=== PATIENT | female | born 1965 | race Caucasian/White ===

== ENCOUNTER 2022-05-02 08:01 | Outpatient (REF) | payer BC, SELFPAY ==
--- NOTE | ~2022-05-02 | MM_ITS ---
EXAMINATION: BONE DENSITOMETRY CLINICAL INDICATION: Vertebral fracture. COMPARISON: This is the patient's baseline examination. TECHNIQUE: Using a [employer] Shkola DXA System (software version: 13.1) manufactured by [email or web address], dual-energy x-ray absorptiometry was performed of the lumbar spine and left hip. The images are of good technical quality. Summary results are attached. FINDINGS: AP SPINE L1-L4: BMD 1.185 g/cm2, Z-score 1.1, T-score 0.0, normal. LEFT FEMUR, NECK: BMD 0.897 g/cm2, Z-score 0.2, T-score -1.0, normal. LEFT FEMUR, TOTAL: BMD 1.009 g/cm2, Z-score 0.9, T-score 0.0, normal. IDENTIFIED RISK FACTORS: Early menopause, secondary osteoporosis, tobacco use (current smoker), glucocorticoids (chronic). HISTORY OF FRACTURE: None listed. MEDICATIONS: None listed. MM/XR DEXA axial skeleton IMPRESSION: 1. DIAGNOSIS: Normal bone density based on the lowest T-score value of -1.0 in the femoral neck applying World Health Organization criteria. 2. 10-YEAR FRACTURE RISK PREDICTION, FRAX: According to the guidelines, FRAX calculation should only be performed on patients in the osteopenia bone density category. Therefore, FRAX was not performed on this patient. 3. Treatment Recommendations: NOF guidelines recommend consideration for treatment in postmenopausal women and men age 50 and older presenting with the following: -A hip or vertebral (clinical or morphometric) fracture. -T-score less than or equal to -2.5 at the femoral neck or spine after appropriate evaluation to exclude secondary causes. -Low bone mass at the hip or spine and a 10-year fracture probability by FRAX of greater than or equal to 3% for hip fracture or greater than or equal to 20% for major osteoporotic fracture based on the [place] adapted WHO algorithm. 4. Other Recommendations: All treatment decisions require clinical judgment and consideration of individual patient factors, including patient preferences, comorbidities, previous drug use, risk factors not captured in the FRAX model (e.g. frailty, falls, vitamin D deficiency, increased bone turnover, interval significant decline in bone density) and possible under or overestimation of fracture risk by FRAX. FUTURE SCAN RECOMMENDATION: People with diagnosed cases of osteoporosis or at high risk for fracture should have regular bone mineral density tests. For patients eligible for Medicare, routine testing is allowed once every 2 years. The testing frequency can be increased to one year for patients who have rapidly progressing disease, those who are receiving or discontinuing medical therapy to restore bone mass, or have additional risk factors.
--- NOTE | ~2022-05-02 | MM_ITS ---
EXAMINATION: MM SCREENING DIGITAL BREAST TOMOSYNTHESIS, BILATERAL CLINICAL INFORMATION: Screening. Asymptomatic. The lifetime risk of breast cancer based on the Tyrer-Cuzick Model is 4.0%. COMPARISON: Mammography: 03/27/2021 and 12/13/2019. TECHNIQUE: Digital breast tomosynthesis is performed in both the craniocaudal and mediolateral oblique views along with computer-aided detection (CAD). Synthesized 2-D images are generated from the tomosynthesis. FINDINGS: The breasts are heterogeneously dense, which may obscure small masses (ACR BI-RADS breast composition Category c). There is a stable parenchymal pattern of the left breast with no new abnormal dominant mass or suspicious grouping of microcalcifications. Within the superior aspect of the right breast approximately 5.5 cm from the nipple, there is a region of some asymmetric density with question a few calcifications for which spot compression view is recommended. No definite craniocaudal correlate is seen. MM/MM tomosynthesis screening BI IMPRESSION: Right breast density superiorly for further evaluation as described. ASSESSMENT: BI-RADS 0: Incomplete - Need Additional Imaging Evaluation. RECOMMENDATION: 1. Additional views of the right breast. 2. Targeted ultrasound if warranted after review of the additional views. 3. Radiology department staff will contact the patient for additional imaging. This patient's information was entered into a reminder system with a target due date for their next mammogram.
== END 2022-05-02 08:02 | disposition home or self-care (01) ==
LOC: HO.MAMMO 08:01
PROVIDERS: PCP Internal Medicine; Visit Provider Internal Medicine
DX: Z12.31 Encounter for screening mammogram for malignant neoplasm of breast (principal); Z13.820 Encounter for screening for osteoporosis; Z78.0 Asymptomatic menopausal state
CPT/HCPCS: 77063; 77067; 77080

== ENCOUNTER 2022-05-20 08:35 | Outpatient (REF) | payer BC, SELFPAY ==
--- NOTE | ~2022-05-20 | MM_ITS ---
EXAMINATION: MM DIAGNOSTIC DIGITAL BREAST TOMOSYNTHESIS, RIGHT US DIAGNOSTIC ULTRASOUND BREAST, RIGHT CLINICAL INFORMATION: Recall from screening for asymmetric density and question of a few calcifications upper right breast. No known family history breast cancer. TC score 4%. COMPARISON: Mammography: 05/02/2022, outside mammography 03/27/2021, 12/13/2019 ([facility], [place]). TECHNIQUE: Digital breast tomosynthesis is performed. 2D images are generated from the tomosynthesis. The following views are obtained: Magnification spot MLO, magnification ML, 3-D spot ML, 3-D spot exaggerated CC. Ultrasound right breast is targeted to the upper and outer quadrants. Grayscale imaging and color Doppler are performed without and with harmonics. FINDINGS: The breasts are heterogeneously dense, which may obscure small masses (ACR BI-RADS breast composition Category c). The magnification views show no abnormal calcifications. No grouped pleomorphic calcifications. The additional views show scattered parenchymal densities without definite three-dimensional focal asymmetric density. No architectural abnormality. Ultrasound demonstrates no cystic or solid mass or architectural abnormality. No focal duct ectasia. Results are discussed with the patient at time of visit. There is no persistent asymmetric density and no abnormal calcifications. As a precaution, short interval six-month follow-up right mammography will be requested to exclude remote possibility of a developing density. MM/MM tomosynthesis diagnostic RT IMPRESSION: -No abnormal calcifications. -No persistent three-dimensional focal asymmetric density. -Unremarkable targeted right breast ultrasound. ASSESSMENT: BI-RADS 3: Probably Benign RECOMMENDATION: Diagnostic mammography in 6 months. This patient's information was entered into a reminder system with a target due date for their next mammogram.
== END 2022-05-20 08:36 | disposition home or self-care (01) ==
LOC: HO.MAMMO 08:35
PROVIDERS: PCP Internal Medicine; Visit Provider Internal Medicine
DX: R92.2 Inconclusive mammogram (principal)
CPT/HCPCS: 76642; 77061; 77065

== ENCOUNTER 2022-07-25 13:12 | Outpatient (REF) | payer BC, SELFPAY ==
--- NOTE | ~2022-07-25 | CT_ITS ---
EXAMINATION: CT ABDOMEN AND PELVIS WITHOUT CONTRAST CLINICAL INFORMATION: Left lower quadrant pain COMPARISON: None TECHNIQUE: Multidetector volumetric imaging was performed from the superior aspect of the liver through the pubic symphysis. Sagittal and coronal reformatted images were obtained on the technologist's workstation. This CT examination was performed using dose optimization techniques as appropriate, variously including the following: *Automated exposure control *Adjustment of mA and/or kV according to patient size (this includes techniques or standardized protocols for targeted exams where dose is matched to indication/reason for exam; i.e. extremities or head) *Use of iterative reconstruction technique DLP: 370 mGy-cm FINDINGS: LUNG BASES: Small nodularity at the left lung base. 3 mm nodule on image 5. LIVER, GALLBLADDER, AND BILIARY TREE: The liver is normal in size, shape, and attenuation. No focal hepatic lesion or biliary ductal dilatation is present. The gallbladder is unremarkable with no evidence of radiopaque gallstones, gallbladder wall thickening, or obvious pericholecystic inflammatory changes. PANCREAS: Unremarkable. SPLEEN: Unremarkable. ADRENAL GLANDS: Unremarkable. KIDNEYS AND URETERS: The kidneys are normal in size, shape, and attenuation. No hydronephrosis, hydroureter, or calculi seen. No perinephric stranding. BLADDER: Unremarkable. GASTROINTESTINAL TRACT: Soft tissue stranding adjacent to the mid sigmoid in the deep left pelvis. Findings would be most consistent with diverticulitis as there are diverticular in the region. No drainable collection. Otherwise the bowel pattern is felt to be nonobstructing. ABDOMINAL WALL: No significant hernia is appreciated. LYMPH NODES: There is no bulky adenopathy here. Some mildly prominent but nonpathologically enlarged nodes are noted. For example on coronal image 66 an actual axial image 27 there is a prominent node but the short axis is only measuring 7 mm. VASCULAR: Unremarkable. PELVIC VISCERA: Other than change described no suspicious finding. OSSEOUS STRUCTURES: Unremarkable. CT/CT abdomen pelvis wo IV con IMPRESSION: Findings as described above. Soft tissue stranding around diverticula disease in the mid sigmoid at the level the deep pelvis on the left Findings would be most consistent with diverticulitis. Attention to follow-up. Otherwise as described some prominent nodes here in the abdomen pelvis. No pathologic enlargement. Attention to follow-up. 2 small nodules in left lower lung zone. If there are risk factors for lung malignancy consider full CT of the chest. This may be done on an outpatient basis.
== END 2022-07-25 13:13 | disposition home or self-care (01) ==
LOC: HO.CT 13:12
PROVIDERS: PCP Internal Medicine; Visit Provider Internal Medicine
DX: R10.32 Left lower quadrant pain (principal)
CPT/HCPCS: 74176

== ENCOUNTER 2022-08-13 10:00 | Outpatient (REF) | payer BC, SELFPAY ==
[2022-08-13 10:35] LABS: MANUAL DIFF FLAG NO
[2022-08-13 10:42] LABS: Basophils Percent Auto 0.5 % (0-2); Eosinophils Percent Auto 0.4 % (0-4); Hemoglobin 13.5 g/dl (12.0-16.0); Imm Gran Abs Auto 0.03 X10*3/uL (0.00-0.03); Imm Gran Pct Auto 0.4 % (0.0-0.4); Lymphocytes Absolute Auto 1.9 X10*3/uL (1.2-4.9); Lymphocytes Percent Auto 24.5 % (20-40); Mean Corpuscular HGB Conc 32.9 g/dl (31.0-35.0); Mean Corpuscular Hemoglobin 30.8 pg (27.0-33.0); Mean Corpuscular Volume 93.6 fL (80.0-98.0); Mean Platelet Volume 8.7 fL (9.4-12.3); Monocytes Absolute Auto 0.7 X10*3/uL (0.1-1.2); Monocytes Percent Auto 9.2 % (2-11); Platelet Count 280 X10*3/uL (160-400); Red Blood Count 4.38 X10*6/uL (4.20-5.50); Red Cell Distribution Width 12.9 % (11.0-16.0); White Blood Count 7.7 X10*3/uL (4.8-10.8)
[2022-08-13 11:45] LABS: Vitamin B12 426 pg/mL (200-900)
== END 2022-08-13 10:01 | disposition home or self-care (01) ==
LOC: HO.10HDL 10:00
PROVIDERS: Visit Provider Internal Medicine
DX: K57.90 Diverticulosis of intestine, part unspecified, without perforation or abscess without bleeding (principal)
CPT/HCPCS: 36415; 82607; 85025

== ENCOUNTER 2022-10-08 07:23 | Outpatient (REF) | payer BC, SELFPAY ==
--- NOTE | ~2022-10-08 | CT_ITS ---
EXAMINATION: CT CHEST WITHOUT CONTRAST CLINICAL INFORMATION: Nicotine dependence. COMPARISON: Lung windows from abdominal and pelvic CT July 2022 TECHNIQUE: Multidetector volumetric CT imaging of the chest was done. Axial MIP volume rendering provided. Sagittal and coronal reformatted images were obtained. This CT examination was performed using dose optimization techniques as appropriate, variously including the following: *Automated exposure control *Adjustment of mA and/or kV according to patient size (this includes techniques or standardized protocols for targeted exams where dose is matched to indication/reason for exam; i.e. extremities or head) *Use of iterative reconstruction technique DLP: 134 mGy-cm FINDINGS: LUNGS: Biapical pleural parenchymal scarring. 4 mm right upper lobe nodule axial image 103 series 5. 4 mm peripheral or subpleural left upper lobe nodule adjacent to the fissure axial image 135 series 5. 3 mm right upper lobe nodule axial image 208 series 5. 4 mm right upper lobe nodule axial image 268 series 5. 2 mm right upper lobe nodule axial image 284 series 5. 2 mm right middle lobe nodule axial image 312 series 5. 3 mm lingular nodule axial image 336 series 5. 3 mm right middle lobe nodule axial image 360 series 5. 3 mm left lower lobe nodule axial image 384 series 5. 2 mm left lower lobe nodule axial image 428 series 5. 2 mm right lower lobe nodule axial image 436 series 5. 3 mm left lower lobe nodule axial image 440 series 5. MEDIASTINUM: The mediastinum is normal. CORONARY ARTERY CALCIFICATION: None visualized on this study. PLEURA: There is no pleural effusion. No pleural mass or thickening. AXILLA: No lymphadenopathy. UPPER ABDOMEN: Unremarkable. OSSEOUS STRUCTURES: Degenerative changes of the spine. CT/CT chest wo IV con IMPRESSION: Biapical pleural and parenchymal scarring. Small pulmonary nodules, largest measuring 4 mm. According to the UPDATED 2017 Fleischner Society recommendations, the advised follow-up imaging for less than 6 mm solid nodule: Low risk, no chest CT follow-up and high risk, optional chest CT follow-up in one year. Fleischner guidelines were followed.
== END 2022-10-08 07:24 | disposition home or self-care (01) ==
LOC: HO.CT 07:23
PROVIDERS: PCP Internal Medicine; Visit Provider Internal Medicine
DX: Z12.2 Encounter for screening for malignant neoplasm of respiratory organs (principal); F17.210 Nicotine dependence, cigarettes, uncomplicated; R91.8 Other nonspecific abnormal finding of lung field
CPT/HCPCS: 71250

== ENCOUNTER 2022-11-18 14:45 | Outpatient (REF) | payer BC, SELFPAY ==
--- NOTE | ~2022-11-18 | MM_ITS ---
EXAMINATION: MM DIAGNOSTIC DIGITAL BREAST TOMOSYNTHESIS, RIGHT CLINICAL INFORMATION: Short interval follow-up probable benign parenchymal asymmetry upper right breast on MLO view. The lifetime risk of breast cancer based on the Tyrer-Cuzick Model is 4%. COMPARISON: Mammography: 05/20/2022, 05/02/2022 (BI-RADS 0); right breast ultrasound 05/20/2022; outside mammography 03/27/2021, 12/13/2019 ([facility], [place]). TECHNIQUE: Digital breast tomosynthesis is performed in both the craniocaudal and mediolateral oblique views along with computer-aided detection (CAD). Synthesized 2D images are generated from the tomosynthesis. FINDINGS: The breasts are heterogeneously dense, which may obscure small masses (ACR BI-RADS breast composition Category c). There is no significant change from prior exams. No developing density or architectural abnormality. Right breast will be reassessed again at time of annual bilateral mammography, due in 6 months. Results are provided to the patient at time of visit by the technologist. MM/MM tomosynthesis diagnostic RT IMPRESSION: There are no significant changes from prior study. ASSESSMENT: BI-RADS 3: Probably Benign RECOMMENDATION: Diagnostic mammography at time of annual bilateral mammography, due in 6 months. This patient's information was entered into a reminder system with a target due date for their next mammogram.
== END 2022-11-18 14:46 | disposition home or self-care (01) ==
LOC: HO.MAMMO 14:45
PROVIDERS: PCP Internal Medicine; Visit Provider Internal Medicine
DX: R92.2 Inconclusive mammogram (principal)
CPT/HCPCS: 77061; 77065

== ENCOUNTER 2023-01-03 06:59 | Outpatient (REF) | payer OTHER, SELFPAY ==
[2023-01-03 08:50] LABS: Cholesterol 172 mg/dL; HDL Cholesterol 65 mg/dL; LDL Cholesterol Calculated 96 mg/dl; Triglycerides 58 mg/dL
== END 2023-01-03 07:00 | disposition home or self-care (01) ==
LOC: HO.LAB 06:59
PROVIDERS: PCP Internal Medicine; Referring Provider Internal Medicine; Visit Provider Internal Medicine Cardiovascular Disease
DX: E78.5 Hyperlipidemia, unspecified (principal)
CPT/HCPCS: 36415; 80061

== ENCOUNTER 2023-01-13 14:07 | Outpatient (AMB) | payer OTHER, SELFPAY ==
--- NOTE | 2023-01-13 14:15 | AM.OFFWIN_ITS ---
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 Pt states she has felt exhausted for the past few days. 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 She has a small rash on her left forearm. Cannot recall if she had a tick bite. Physical Exam Vital Signs: Last Vital Signs Temp 97.4 F 01/13/23 14:16 Pulse 80 01/13/23 14:16 BP 114/68 01/13/23 14:16 Pulse Ox 98 01/13/23 14:16 Oxygen Delivery Method Room Air 01/13/23 14:16 BMI result Body Mass Index 26.6 Skin Other: Left forearm: 2 cm circular lesion with heaped margins. Overlying scales. Assessment & Plan Assessment & Plan (1) Rash: Code(s): R21 - Rash and other nonspecific skin eruption Plan: Most likely fungal etiology. Response to ketoconazole awaited. Lyme titer in 3 weeks per patient's request. Orders: Orders Lyme IgG/IgM w/reflex to WB 01/27/23 R21 - Rash and other nonspecific skin eruption Medications: New ketoconazole 2% 1 appl topical DAILY 30 grams 1RF Coding Level of Care Code Est Pt Level 3 (49204) Diagnoses Rash R21
[2023-01-13 14:16] VITALS: BP 114/68; PULSE 80; TEMP 36.3; O2SAT 98; BMI 26.6
== END 2023-01-13 15:22 | disposition home or self-care (01) ==
PROVIDERS: PCP Internal Medicine; Visit Provider Internal Medicine
DX: R21 Rash and other nonspecific skin eruption (principal)
CPT/HCPCS: 99213

== ENCOUNTER 2023-02-12 07:25 | Outpatient (REF) | payer OTHER, SELFPAY ==
[2023-02-12 07:45] LABS: MANUAL DIFF FLAG NO
[2023-02-12 08:02] LABS: Basophils Percent Auto 0.6 % (0-2); Eosinophils Absolute Auto 0.1 X10*3/uL (0.0-0.4); Eosinophils Percent Auto 0.7 % (0-4); Hematocrit 40.7 % (37.0-47.0); Hemoglobin 13.3 g/dl (12.0-16.0); Imm Gran Abs Auto 0.02 X10*3/uL (0.00-0.03); Imm Gran Pct Auto 0.3 % (0.0-0.4); Lymphocytes Absolute Auto 1.6 X10*3/uL (1.2-4.9); Lymphocytes Percent Auto 22.2 % (20-40); Mean Corpuscular HGB Conc 32.7 g/dl (31.0-35.0); Mean Corpuscular Hemoglobin 31.2 pg (27.0-33.0); Mean Corpuscular Volume 95.5 fL (80.0-98.0); Mean Platelet Volume 9.3 fL (9.4-12.3); Monocytes Absolute Auto 0.6 X10*3/uL (0.1-1.2); Monocytes Percent Auto 8.3 % (2-11); Neutrophils Absolute Auto 4.9 x10*3/uL (2.0-8.3); Neutrophils Percent Auto 67.9 % (45-73); Platelet Count 260 X10*3/uL (160-400); Red Blood Count 4.26 X10*6/uL (4.20-5.50); Red Cell Distribution Width 12.7 % (11.0-16.0); White Blood Count 7.2 X10*3/uL (4.8-10.8)
[2023-02-12 08:54] LABS: Alanine Aminotransferase 9 U/L (0-31); Alkaline Phosphatase 92 U/L (39-117); Anion Gap 10 (12-20); Aspartate Amino Transferase 20 U/L (5-31); Bilirubin Total 0.4 mg/dL (0.0-1.0); Blood Urea Nitrogen 19 mg/dL (9-16); C Reactive Protein 0.56 mg/dL (< or = 0.50); Calcium 9.5 mg/dL (8.4-10.2); Carbon Dioxide 28 mmol/L (22-29); Chloride 104 mmol/L (96-108); Estimated Glomerular Filt Rate > 60; Glucose Random 109 mg/dL (60-115); Potassium 4.1 mmol/L (3.3-5.1); Sodium 138 mmol/L (135-145); Total Protein 7.1 g/dL (6.5-8.0)
[2023-02-12 08:59] LABS: Erythrocyte Sedimentation Rate 29 MM/HR (0-20)
[2023-02-12 09:08] LABS: Free T4 (Free Thyroxine) 0.93 ng/dL (0.71-1.85); Thyroid Stimulating Hormone 0.59 uIU/mL (0.32-4.0)
[2023-02-12 09:15] LABS: Vitamin B12 426 pg/mL (200-900)
[2023-02-14 02:03] LABS: Lyme Abs Screen <0.90 index
== END 2023-02-12 07:26 | disposition home or self-care (01) ==
LOC: HO.LAB 07:25
PROVIDERS: PCP Internal Medicine; Visit Provider Internal Medicine
DX: R53.83 Other fatigue (principal); K58.9 Irritable bowel syndrome, unspecified; E78.00 Pure hypercholesterolemia, unspecified; K57.90 Diverticulosis of intestine, part unspecified, without perforation or abscess without bleeding
CPT/HCPCS: 36415; 80053; 82550; 82607; 84439; 84443; 85025; 85652; 86140; 86617; 86618

== ENCOUNTER → 2023-02-20 07:47 | Outpatient (REF) | payer OTHER, SELFPAY ==
--- NOTE | 2023-02-20 07:51 | CA_ITS ---
Acquisition Time: 2023-02-20 08:06:36 Total Exercise Time: 00:09:00 Test Indications: Dyspnea Medications: RAPATHA ESCITALOPRAM Protocol: RITA Max HR: 136 BPM 85% of Pred: 160 BPM Max BP: 128/050 mmHG Max Work Load: 10.1 METS PT EXERCISED ON STD RITA PROTOCOL FOR 9 MIN THRU STAGE 3. MAX HR 137-85%MAX. SOME ST DEP NOTED AT PEAK EXERCISE WITHOUT SXS. WILL REVIEW M WITH CARDIOLOGY. Referred By: Jefe Yuen Overread By: SYED YUEN MD
== END ==
LOC: HO.CARD 07:47
PROVIDERS: PCP Internal Medicine; Visit Provider Internal Medicine
DX: R53.82 Chronic fatigue, unspecified (principal)
CPT/HCPCS: 93017

== ENCOUNTER 2023-03-24 | Outpatient (REF) | payer OTHER, SELFPAY ==
[2023-03-27 21:13] LABS: HPV mRNA E6/E7 rflx Not Detected (Not Detected)
== END 2023-03-24 00:01 | disposition home or self-care (01) ==
LOC: HO.LNP
PROVIDERS: Visit Provider Obstetrics & Gynecology
DX: Z01.419 Encounter for gynecological examination (general) (routine) without abnormal findings (principal); Z11.51 Encounter for screening for human papillomavirus (HPV)
CPT/HCPCS: 87624; 88142

== ENCOUNTER 2023-04-13 07:46 | Emergency (ER) | payer OTHER, SELFPAY ==
--- NOTE | ~2023-04-13 | XR_ITS ---
EXAMINATION: XR CHEST CLINICAL INFORMATION: Chest pain COMPARISON: Chest CT 10/08/2022 TECHNIQUE: Frontal view of the chest was obtained. FINDINGS: Cardiac silhouette is normal in size. The lungs are well aerated. There is no lobar consolidation. No pleural effusion or pneumothorax. No gross osseous abnormality. XR/XR chest 1V IMPRESSION: No acute pulmonary pathology.
--- NOTE | 2023-04-13 07:48 | ECG_ITS ---
Test Reason : chest pain Blood Pressure : / mmHG Vent. Rate : 082 BPM Atrial Rate : 082 BPM P-R Int : 170 ms QRS Dur : 092 ms QT Int : 368 ms P-R-T Axes : -20 028 030 degrees QTc Int : 429 ms Normal sinus rhythm Nonspecific ST abnormality Abnormal ECG No previous ECGs available Referred By: Monica Burnett Electronically Signed By:SYED YUEN MD
[2023-04-13 07:51] VITALS: BP 136/82; PULSE 85; RESP 19; TEMP 36.6; O2SAT 95; BMI 26.2
--- NOTE | 2023-04-13 08:03 | ED_ITS ---
HPI - Chest Pain General Chief Complaint: Chest Pain Stated Complaint: Chest pain/Neck pain Time Seen by Provider: 04/13/23 07:49 Source: patient and old records reviewed Mode of arrival: ambulatory Limitations: no limitations History of Present Illness HPI narrative: 58 yo female smoker, HLD, states father has hx of CAD had exercise stress test with Dr. Obregon on 02/20 without symptoms other than dyspnea there were some ST depressions in inf leads but there was so much artifact it was hard to interpret. At this time she presents with 3 days of still chronic fatigue but also chest pressure radiating to back along with neck at rest and exertion feels tired and short of breath. has had lyme panel, B12 and thyroid done for her chronic fatigue. MD complaint: chest pain Onset (ago): day(s) (3) Timing of current episode: episodic Prior episodes: Yes Onset: during rest and during exertion Pain location: substernal Pain radiation: back and neck Severity: moderate Quality: other (pressure) Relieving factors: nothing Exacerbating factors: nothing Context: other Associated symptoms: dyspnea Treatment prior to arrival: none Related Data Home Medications Medication Instructions Recorded Confirmed escitalopram oxalate 20 mg tablet 20 mg PO DAILY 01/13/23 evolocumab 140 mg/mL subcutaneous mg subcut Q2W 01/13/23 pen injector (Roman Rendon) Previous Rx's Medication Instructions Recorded ketoconazole 2 % topical cream 1 appl topical DAILY #30 grams 01/13/23 Allergies Allergy/AdvReac Type Severity Reaction Status Date / Time midazolam [From Versed] AdvReac Intermediate Rash Verified 04/13/23 07:51 morphine AdvReac Intermediate Unknown Verified 04/13/23 07:51 Review of Systems 2 Review of Systems: Constitutional : No Weight loss, No Fever, No Chills ENT/Mouth : No sore throat, No Rhinorrhea Eyes: No Eye Pain, No Swelling Cardiovascular : pos Chest Pain, pos SOB, no Dyspnea on Exertion, No Orthopnea, No Edema, No Palpitations Respiratory : No Cough, No Sputum Gastrointestinal : no Nausea, No Vomiting, No Diarrhea, No abdominal Pain, No Hematochezia, No Melena Genitourinary : No Dysuria, No Urinary Frequency Musculoskeletal : No joint pain, No Myalgias, No Joint Swelling Skin : No Skin Lesions, No rash Neuro : No Weakness, No Numbness, No Dizziness, No Headache Psych : No Anxiety/Panic, No Depression All other systems reviewed and are negative [facility] Past Medical History Attestation statement: The following information was validated with the patient. Medical History Hyperlipidemia Social History Social History Patient Tobacco Use Status: Current everyday Tobacco user Smoked in Last 30 Days: Yes Use of substances other than those prescribed or required for medical reasons: No Advance Directives: No Advance Directives Information Provided: No Physical Exam 2 Vital Signs: Vital Signs: Last Vital Signs Temp 98.0 F 04/13/23 11:06 Pulse 68 04/13/23 11:06 Resp 15 04/13/23 11:06 BP 113/73 04/13/23 11:06 Pulse Ox 95 04/13/23 11:06 O2 Del Method Room Air 04/13/23 11:06 BMI result Body Mass Index 26.2 Appearance: Alert. Oriented X3. No acute distress. Eyes: Pupils equal, round and reactive to light. ENT: Pharynx normal. Neck: Normal inspection. Neck supple. CVS: Normal heart rate and rhythm. Pulses normal. Respiratory: No respiratory distress. Breath sounds normal. Abdomen: Soft and non-tender. Skin: Skin warm and dry. Normal skin color. Normal skin turgor. Extremities: No lower extremity edema. No calf ttp distal pulses intact. Neuro: Oriented X 3. No motor deficit. No sensory deficit. Medical Decision Making Medical Decision Making [facility] Narrative: 58 yo female smoker, HLD, states father has hx of CAD had exercise stress test with Dr. Obregon on 02/20 that showed possibly some ST depressions but there was sig artifact. At this time she now has chest pressure x 3 days - will obtain basic labs, troponin x 2, CXR, EKG - she has no signs of DVT, no risk factors for VTE - no hypoxia or tachycardia it is not pleuritic low susp for VTE. Her pulses are intact doubt dissection. Differential Diagnosis Differential Diagnoses: The differential diagnosis associated with the presentation includes atypical chest pain, viral syndrome Admission/Observation Consideration of admission/observation: Escalation of care including admission/observation considered nonischemic EKG, trop flat x 2, CXR negative, stress test can be repeated outpatient can follow up with cardiology tracing was terrible Lab Data [facility] Lab Attestation statement: I reviewed the patient's lab results. 04/13/23 08:00 04/13/23 08:00 Labs: Lab Results 04/13/23 04/13/23 Range/Units 08:00 11:12 WBC 6.6 (4.8-10.8) X10*3/uL RBC 4.40 (4.20-5.50) X10*6/uL Hgb 13.6 (12.0-16.0) g/dl Hct 40.7 (37.0-47.0) % MCV 92.5 (80.0-98.0) fL MCH 30.9 (27.0-33.0) pg MCHC 33.4 (31.0-35.0) g/dl RDW 12.5 (11.0-16.0) % Plt Count 269 (160-400) X10*3/uL MPV 8.8 L (9.4-12.3) fL Immature Gran % (Auto) 0.3 (0.0-0.4) % Neut % (Auto) 62.5 (45-73) % Lymph % (Auto) 27.3 (20-40) % [place] % (Auto) 7.9 (2-11) % Eos % (Auto) 1.5 (0-4) % Baso % (Auto) 0.5 (0-2) % Lymph # (Auto) 1.8 (1.2-4.9) X10*3/uL [place] # (Auto) 0.5 (0.1-1.2) X10*3/uL Eos # (Auto) 0.1 (0.0-0.4) X10*3/uL Baso # (Auto) 0.0 (0.0-0.2) X10*3/uL Abs Immat Gran (auto) 0.02 (0.00-0.03) X10*3/uL Absolute Neuts (auto) 4.1 (2.0-8.3) x10*3/uL Absolute Nucleated RBC 0.000 (0.0-0.012) X10*3/uL Nucleated RBC % (auto) 0.0 (0.0-0.2) /100WBC PT 11.7 (11.1-13.3) SEC INR 1.0 (0.9-1.1) Sodium 139 (135-145) mmol/L Potassium 3.9 (3.3-5.1) mmol/L Chloride 103 (96-108) mmol/L Carbon Dioxide 28 (22-29) mmol/L Anion Gap 12 (12-20) BUN 16 (9-16) mg/dL Creatinine 0.85 (0.5-1.4) mg/dL Estim Creat Clear Calc 59.8 Estimated GFR > 60 Random Glucose 120 H (60-115) mg/dL Calcium 9.6 (8.4-10.2) mg/dL Magnesium 2.1 (1.6-2.6) mg/dL Total Bilirubin 0.5 (0.0-1.0) mg/dL Direct Bilirubin 0.2 (0.0-0.5) mg/dL AST 27 (5-31) U/L ALT 12 (0-31) U/L Alkaline Phosphatase 93 (39-117) U/L Troponin I High Sens < 2.7 < 2.7 (<3.5-17.0) ng/L Total Protein 7.5 (6.5-8.0) g/dL Albumin 4.1 (3.5-5.0) g/dL Lipase 16 (8-78) U/L COVID-19 (ANA PAULA) Negative (Negative) COVID-19 Clin Com See Note Independent Interpretation I performed an independent interpretation of an: EKG and Plain X-Ray (normal ) Interpretation: Rate: 82 Rhythm: NSR [place]: normal Normal P waves. Normal MICHI. Normal QRS complex. ST T wave : normal no DUNIA qTC: normal prior studies: no acute ischemia The study has been interpreted contemporaneously by me. . Radiology Impression Discussion of test interpretation with radiology: I have reviewed the radiologist's reading. External Record Review External record reviewed: Inpatient record Discharge Plan Discharge Clinical Impression: Atypical chest pain, Chronic fatigue Patient Disposition: Home, Self-Care Instructions: Chest Pain (ED), Fatigue (ED) Additional Instructions: your COVID, chest xray EKG were normal today. you had two negative and undetectable high sensitivity troponins. at this time would recommend outpatient ECHO and evaluation by cardiology please call Dr. Aly office today for outpatient appointment. return for worsening pain, trouble breathing, fainting or any other concerns. Prescriptions: No Action escitalopram oxalate 20 mg tablet 20 mg PO DAILY Repatha SureClick 140 mg/mL pen injector subcut Q2W ketoconazole 2 % cream 1 appl topical DAILY Qty: 30 1RF Referrals: Robe Samaniego MD [Physician] - (call to schedule appointment ) Stand Alone Forms: Work/School Release
[2023-04-13 08:12] LABS: MANUAL DIFF FLAG NO
[2023-04-13 08:14] LABS: Basophils Percent Auto 0.5 % (0-2); Eosinophils Absolute Auto 0.1 X10*3/uL (0.0-0.4); Eosinophils Percent Auto 1.5 % (0-4); Hematocrit 40.7 % (37.0-47.0); Hemoglobin 13.6 g/dl (12.0-16.0); Imm Gran Abs Auto 0.02 X10*3/uL (0.00-0.03); Imm Gran Pct Auto 0.3 % (0.0-0.4); Lymphocytes Absolute Auto 1.8 X10*3/uL (1.2-4.9); Lymphocytes Percent Auto 27.3 % (20-40); Mean Corpuscular HGB Conc 33.4 g/dl (31.0-35.0); Mean Corpuscular Hemoglobin 30.9 pg (27.0-33.0); Mean Corpuscular Volume 92.5 fL (80.0-98.0); Mean Platelet Volume 8.8 fL (9.4-12.3); Monocytes Absolute Auto 0.5 X10*3/uL (0.1-1.2); Monocytes Percent Auto 7.9 % (2-11); Neutrophils Absolute Auto 4.1 x10*3/uL (2.0-8.3); Neutrophils Percent Auto 62.5 % (45-73); Platelet Count 269 X10*3/uL (160-400); Red Cell Distribution Width 12.5 % (11.0-16.0); White Blood Count 6.6 X10*3/uL (4.8-10.8)
[2023-04-13 08:23] LABS: Prothrombin Time 11.7 SEC (11.1-13.3)
[2023-04-13 08:30] LABS: COVID-19 Test Negative (Negative); IDNOW Serial# 9DB6401D
[2023-04-13 08:34] LABS: Alanine Aminotransferase 12 U/L (0-31); Albumin Level 4.1 g/dL (3.5-5.0); Alkaline Phosphatase 93 U/L (39-117); Anion Gap 12 (12-20); Aspartate Amino Transferase 27 U/L (5-31); Bilirubin Direct 0.2 mg/dL (0.0-0.5); Bilirubin Total 0.5 mg/dL (0.0-1.0); Blood Urea Nitrogen 16 mg/dL (9-16); Calcium 9.6 mg/dL (8.4-10.2); Carbon Dioxide 28 mmol/L (22-29); Chloride 103 mmol/L (96-108); Creatinine Clr Calc Pharmacy 59.8; Estimated Glomerular Filt Rate > 60; Glucose Random 120 mg/dL (60-115); Lipase 16 U/L (8-78); Magnesium 2.1 mg/dL (1.6-2.6); Potassium 3.9 mmol/L (3.3-5.1); Sodium 139 mmol/L (135-145); Total Protein 7.5 g/dL (6.5-8.0)
[2023-04-13 08:46] LABS: Troponin-I High Sensitivity < 2.7 ng/L (<3.5-17.0)
[2023-04-13 09:13] VITALS: BP 117/69; PULSE 68; RESP 17; O2SAT 96
[2023-04-13 11:06] VITALS: BP 113/73; PULSE 68; RESP 15; TEMP 36.7; O2SAT 95
[2023-04-13 11:39] LABS: Troponin-I High Sensitivity < 2.7 ng/L (<3.5-17.0)
== END 2023-04-13 12:06 | disposition home or self-care (01) ==
PROVIDERS: Emergency Provider Emergency Medicine; PCP Internal Medicine
DX: R07.89 Other chest pain (principal); R53.82 Chronic fatigue, unspecified; Z11.52 Encounter for screening for COVID-19; R06.02 Shortness of breath; E78.5 Hyperlipidemia, unspecified; F17.210 Nicotine dependence, cigarettes, uncomplicated; Z79.899 Other long term (current) drug therapy
CPT/HCPCS: 36415; 71045; 80048; 80076; 83690; 83735; 84484; 85025; 85610; 87635; 93005; 99283; 99285

== ENCOUNTER 2023-04-28 13:40 | Outpatient (AMB) | payer OTHER, SELFPAY ==
[2023-04-28 13:54] VITALS: BP 120/70
--- NOTE | 2023-04-28 13:54 | A.OFFVIS_ITS ---
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 Credit Assistant Required: No Accompanied by: Self / Same As Patient Allergies midazolam [From Versed] Adverse Reaction (Intermediate, Verified 04/28/23 13:58) Rash morphine Adverse Reaction (Intermediate, Verified 04/28/23 13:58) Unknown HPI HPI Comments History of Present Illness Details 58-year-old female presents for a visit after being in the emergency department for chest pain and referred for ST depressions in her recent stress test. She reports the pressure is constant along with significant fatigue but the severity of it changes. Does no worsen with exertion. She reports she has always had high cholesterol and had two calcium scores - will request the records. [facility] Medical History (Updated 04/28/23 @ 14:25 by Celina King NP) Hyperlipidemia Surgical History (Updated 04/28/23 @ 14:12 by Celina King NP) History of tubal ligation History of appendectomy Family History (Updated 04/28/23 @ 14:11 by Celina King NP) Father History of quadruple bypass Multiple myeloma Diabetes Heart attack Brother Aortic valve replaced Social History Patient Tobacco Use Status: Current everyday Tobacco user Review of Systems Const Denies chills, Denies fatigue, Denies fever(s), Denies frequent falls, Denies weakness, Denies weight gain and Denies weight loss ENT Denies dizziness Card Denies chest pain, Denies chest pain with activity, Denies syncope, Denies rapid heart rate, Denies pedal edema, Denies irregular heart rhythm, Denies leg edema, Denies lightheadedness, Denies palpitations, Denies dyspnea, Denies dyspnea on exertion, Denies orthopnea and Denies other (LOC) Resp Denies cough, Denies dyspnea and Denies dyspnea on exertion GI Denies hematochezia and Denies change in bowel habits Musc Denies abnormal gait, Denies arthralgias, Denies muscle weakness, Denies numbness, Denies radiating pain into limb and Denies tingling Neuro Denies abnormal gait, Denies dizziness, Denies syncope, Denies frequent falls, Denies numbness, Denies tingling and Denies weakness Endo Denies fatigue and Denies palpitations Physical Exam Const General: healthy appearing and no acute distress Orientation/consciousness: patient oriented x3 HEENT Head: Yes normal to inspection Eyes General: appearance normal, both eyes and all related structures Neck Neck: Yes normal visual inspection Chest Chest palpation & inspection: normal inspection of the chest Resp Effort & Inspection: normal respiratory effort Auscultation: clear to auscultation bilaterally Cardio Jugular venous distension: no JVD Palpation: normal PMI Rate: regular rate Rhythm: regular rhythm Heart sounds: S1 normal heart sound present, S2 normal heart sound present, no click, no gallops, no murmurs and no rubs GI Inspection: Yes normal to inspection Palpation (GI): Soft to palpation Skin General skin exam: no rashes or lesions noted Neuro General: patient oriented x3 Extrem General: Yes normal to inspection Psych Appearance: grossly normal Assessment & Plan Assessment & Plan (1) Abnormal stress test: Comment: ST depressions inferior. Code(s): R94.39 - Abnormal result of other cardiovascular function study Plan Will get a stress echo and echocardiogram to assess further. Call or seek ED care if new or worsening symptoms. Call with any questions or concerns. Will have her see Dr. Samaniego in 6-8 weeks. Orders: Orders CA echo transthoracic complete Today R94.39 - Abnormal result of other cardiovascular function study CA echo stress exercise Today R94.39 - Abnormal result of other cardiovascular function study Coding Level of Care Code New Pt Level 3 (63121) Diagnoses Abnormal stress test R94.39
== END 2023-04-28 14:37 | disposition home or self-care (01) ==
PROVIDERS: PCP Internal Medicine; Visit Provider Nurse Practitioner
DX: R94.39 Abnormal result of other cardiovascular function study (principal)
CPT/HCPCS: 99203

== ENCOUNTER → 2023-04-28 13:40 | Outpatient (BNVA) | payer OTHER, SELFPAY | PROVIDERS: PCP Internal Medicine; Visit Provider Nurse Practitioner ==

== ENCOUNTER → 2023-05-19 14:43 | Outpatient (REF) | payer OTHER, SELFPAY ==
--- NOTE | 2023-05-19 14:51 | CA_ITS ---
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 Left Ventricle Normal left ventricular size, thickness, and systolic function. The visually estimated ejection fraction is between 55-60%. Spectral Doppler is indicative of a normal filling pattern. Right Ventricle Normal right ventricular cavity size and systolic function. Atria Both atria are normal in size. There is lipomatous hypertrophy of the interatrial septum. There is no evidence of interatrial shunt. Aortic Valve Normal aortic valve structure and function. There is no aortic valve stenosis. There is no aortic valve regurgitation. Mitral Valve Normal mitral valve structure and function. There is bowing of the posterior mitral leaflet without obvious prolapse. There is trace mitral valve regurgitation. There is no mitral valve stenosis. Pulmonic Valve The pulmonic valve is likely normal. Tricuspid Valve Normal tricuspid valve structure. There is trace tricuspid valve regurgitation. The right ventricular systolic pressure is normal. The right ventricular systolic pressure is 15 mmHg. Normal right atrial pressure. There is no evidence of pulmonary hypertension. Great Vessels All visible segments of the aorta are normal in size. The pulmonary artery was not well visualized. Venous The inferior vena cava is normal in size and collapses greater than 50% with inspiration. Pericardium/Pleural There is no evidence of pericardial effusion. Prior Study Comparison No prior study available for comparison. Measurements 2D Linear Measurements IVSd: 0.89 0.6-0.9/0.6-1.0 cm LVIDd: 4.27 3.9-5.3/4.2-5.9 cm LVIDd Index: 2.60 2.4-3.2/2.2-3.1 cm/m2 LVIDs: 2.87 2.0-3.6 cm LVPWd: 0.83 0.7-1.1 cm LA Diam: 3.00 2.7-3.8/3.0-4.0 cm LAIDs Index: 1.83 1.5-2.3 cm/m2 LV Mass: 143.11 67-162/88-224 g LV Mass Index: 87.26 43-95/49-115 g/m2 LVOT Diam: 2.00 3.0+(-)1.3 cm 2D Systolic Function EF 4C: 59.60 >55% EF 2C: 61.50 >55% EF BiP: 59.30 >55% Mitral Valve MV Pk E: 0.68 MV PK A: 0.54 MV Decel Time: 203.00 E/A: 1.30 E'Lateral: 7.62 E'Medial: 7.29 E/E' Med: 9.30 E/E' Lat: 8.90 PHT: 60.00 MVA PHT: 3.67 Decel Dent: 3.35 Aortic Valve AoV Pk Mitesh: 1.28 AoV Mn Mitesh: 0.90 AoV VTI: 0.27 AoV Pk Grad: 7.00 Aov Mn Grad: 4.00 KARTHIK Cont.VTI: 2.08 LVOT LVOT Pk Mitesh: 0.79 LVOT Mn Mitesh: 0.57 LVOT VTI: 0.18 LVOT Pk Grad: 2.00 LVOT Mn Grad: 1.00 LVOT Diam: 2.00 LVOT Area: 3.14 Diastolic Function MV Pk E: 0.68 MV Pk A: 0.54 E/A: 1.30 E'Medial: 7.29 E/E' Med: 9.30 E' Laterial: 7.62 E/E' Lat: 8.90 Right Ventricle TAPSE (mm): 16.50 TVS' Mitesh: 10.00 Tricuspid Valve TR Pk Mitesh: 1.76 TR Pk Grad: 12.00 RA Press: 3.00 RVSP: 15.00 Great Vessels Aorta Sinus of Valsalva: 3.46 2.0-3.5 cm Ao Asc: 3.00 2.1-3.4 cm Updated in Other Vendor System with Status of Final Alexander Fairchild MD electronically signed on 05/20/2023 8:40:19 AM with status of Final
== END ==
LOC: HO.CARD 14:43
PROVIDERS: PCP Internal Medicine; Visit Provider Nurse Practitioner
DX: R94.39 Abnormal result of other cardiovascular function study (principal)
CPT/HCPCS: 93306; Q9957

== ENCOUNTER → 2023-05-19 14:51 | Outpatient (BNV) | payer OTHER, SELFPAY | PROVIDERS: PCP Internal Medicine; Visit Provider Internal Medicine Cardiovascular Disease | DX: R94.31 Abnormal electrocardiogram [ECG] [EKG] (principal); R94.39 Abnormal result of other cardiovascular function study | CPT/HCPCS: 93306 ==

== ENCOUNTER 2023-05-26 14:29 | Outpatient (REF) | payer OTHER, SELFPAY ==
--- NOTE | ~2023-05-26 | MM_ITS ---
EXAMINATION: MM DIAGNOSTIC DIGITAL BREAST TOMOSYNTHESIS, BILATERAL CLINICAL INFORMATION: 6 month follow-up right breast upper outer asymmetry, which is probably benign. Patient also due for bilateral screening. COMPARISON: Mammography: 11/18/2022, 05/20/2022, 05/02/2022, 03/27/2021, 12/13/2019. TECHNIQUE: Digital breast tomosynthesis is performed in both the craniocaudal and mediolateral oblique views along with computer-aided detection (CAD). Synthesized 2D images are generated from the tomosynthesis. FINDINGS: There are scattered areas of fibroglandular density (ACR BI-RADS breast composition Category b). There are no suspicious masses, suspicious grouped calcifications, or areas of architectural distortion in either breast. The parenchymal pattern is stable from prior exams. There is no worrisome asymmetry in the upper outer right breast. MM/MM tomosynthesis diagnostic BI IMPRESSION: There are no findings suspicious for malignancy in either breast. No persistent worrisome asymmetry in the upper outer right breast. ASSESSMENT: BI-RADS BI-RADS 1 - Negative RECOMMENDATION: 1 year F/U Results were provided to the patient at time of visit by the technologist. This patient's information was entered into a reminder system with a target due date for their next mammogram.
== END 2023-05-26 14:30 | disposition home or self-care (01) ==
LOC: HO.MAMMO 14:29
PROVIDERS: PCP Internal Medicine; Visit Provider Internal Medicine
DX: R92.2 Inconclusive mammogram (principal)
CPT/HCPCS: 77062; 77066

== ENCOUNTER → 2023-05-26 15:00 | Outpatient (BNV) | payer OTHER, SELFPAY | PROVIDERS: PCP Internal Medicine; Visit Provider Radiology Diagnostic Radiology | DX: N63.10 Unspecified lump in the right breast, unspecified quadrant (principal) | CPT/HCPCS: 77062; 77066 ==

== ENCOUNTER 2023-06-05 14:31 | Outpatient (REF) | payer OTHER, SELFPAY ==
--- NOTE | ~2023-06-05 | MM_ITS ---
EXAMINATION: MM SCREENING DIGITAL BREAST TOMOSYNTHESIS, BILATERAL CLINICAL INFORMATION: Screening. Asymptomatic. COMPARISON: Mammography: 05/26/2023, 11/18/2022, 05/20/2022, 05/02/2022, 03/27/2021, 12/13/2019. TECHNIQUE: Digital breast tomosynthesis is performed in both the craniocaudal and mediolateral oblique views along with computer-aided detection (CAD). Synthesized 2D images are generated from the tomosynthesis. Examination being provided at no charge to the patient due to a scheduling error. FINDINGS: There are scattered areas of fibroglandular density (ACR BI-RADS breast composition Category b). There are no suspicious masses, suspicious grouped calcifications, or areas of architectural distortion in either breast. The parenchymal pattern is stable from prior exams. No skin or axillary abnormality. MM/MM tomosynthesis screening BI IMPRESSION: No mammographic evidence of malignancy. Stable exam. ASSESSMENT: BI-RADS BI-RADS 1 - Negative RECOMMENDATION: Routine annual mammography screening. 1 year F/U This examination should not preclude the clinical evaluation of a suspicious palpable abnormality. This patient's information was entered into a reminder system with a target due date for their next mammogram.
== END 2023-06-05 14:32 | disposition home or self-care (01) ==
LOC: HO.MAMMO 14:31
PROVIDERS: PCP Internal Medicine; Visit Provider Internal Medicine
DX: Z12.31 Encounter for screening mammogram for malignant neoplasm of breast (principal)
CPT/HCPCS: 77063; 77067

== ENCOUNTER → 2023-06-05 15:15 | Outpatient (BNV) | payer OTHER, SELFPAY | PROVIDERS: PCP Internal Medicine; Visit Provider Radiology Diagnostic Radiology | DX: Z12.31 Encounter for screening mammogram for malignant neoplasm of breast (principal) | CPT/HCPCS: 77063; 77067 ==

== ENCOUNTER → 2023-07-17 08:50 | Outpatient (REF) | payer OTHER, SELFPAY ==
--- NOTE | 2023-07-17 10:46 | CA_ITS ---
Acquisition Time: 2023-07-17 11:07:03 Total Exercise Time: 00:09:16 Test Indications: Abnormal Treadmill Test Medications: REPATHA ANTIDEPRESSANT Protocol: RITA Max HR: 141 BPM 88% of Pred: 160 BPM Max BP: 160/048 mmHG Max Work Load: 10.5 METS Exercise stress test with exercise 9 min 16 sec of Rita protocol, achieving 88% MPHR, 10.5 METs, with mild sob, no chest discomfort, without arrythmia, with normotensive response to exercise, with borderline ST changes noted during test, overall without changes suggesting ischemia. Echo images obtained at rest and immediately post peak exercise. Definity contrast used. Test reviewed with Dr Fairchild. Referred By: Celina King Overread By: RIGO MORALES
== END ==
LOC: HO.CARD 08:50
PROVIDERS: PCP Internal Medicine; Visit Provider Nurse Practitioner
DX: R94.39 Abnormal result of other cardiovascular function study (principal)
CPT/HCPCS: 93350; Q9957

== ENCOUNTER → 2023-07-17 10:46 | Outpatient (BNV) | payer OTHER, SELFPAY | PROVIDERS: PCP Internal Medicine; Visit Provider Nurse Practitioner Family | DX: R06.02 Shortness of breath (principal); R94.39 Abnormal result of other cardiovascular function study | CPT/HCPCS: 93016; 93018; 93350; 93352 ==

== ENCOUNTER 2023-07-22 13:44 | Outpatient (AMB) | payer OTHER, SELFPAY ==
--- NOTE | 2023-07-22 14:02 | A.OFFVIS_ITS ---
Intake Intake Visit Reasons: urinary incontinence Intake Note: New Patient presents today for initial visit for Urinary Incontinence Urology Medications: ? previously treated with Myrbetriq, none currently Blood Thinner: none PVR:0ml Patient stated she has the urgency to go to the bathroom, eventhough her PVR results was 0ml today, she stated when she has the urgency to urinate, she needs to go right away to the bathroom or she will leaks urine, and she is wearing pads for the same reason. Patient stated she was previously treated with Myrbetriq, however the medication caused her hives. 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: No Accompanied by: Self / Same As Patient Allergies midazolam [From Versed] Adverse Reaction (Intermediate, Verified 07/22/23 14:41) Rash morphine Adverse Reaction (Intermediate, Verified 07/22/23 14:41) Unknown Myrbetriq Adverse Reaction (Severe, Uncoded 07/22/23 14:41) hives Medication List - Last Reconciled 07/22/23 by ROSELINE Cary-TRES B.coagulans-digestive enzym 10 2 billion cell (Digestive Advantage Probiotics Plus Gas) caps PO escitalopram oxalate 20 mg PO DAILY evolocumab (Repatha SureClick) 140 mg subcut Q2W tolterodine ER 2 mg PO DAILY 30 days HPI HPI Comments History of Present Illness Details Monica is a very pleasant 58-year-old female patient of Dr. Obregon. She has a past medical history of hyperlipidemia and nicotine dependence. She presents to the office today as a new patient for mixed urinary incontinence. In discussion with the patient today she reports to be doing and feeling well. She reports symptoms to have been present for the last few months. When asked she does report a previous history of 2 vaginal births, average size babies, and labors to be somewhat short. She reports feeling lower urinary tract symptoms are interfering with her activities of daily life like her job duties. She otherwise denies nocturia, hematuria, dysuria, foul smelling urine, changes to urinary stream, flank pain, fever, and or chills. Discussed at length potential causes for mixed urinary incontinence. Discussed further treatment options with pelvic floor therapy, medications, in office urodynamics and or cystoscopy for further assessment evaluation. She reports having trialed Myrbetriq given by PCP however noted hives after the third day and therefore discontinued medication. In office urinalysis results reviewed with the patient today. PVR 0 mL. She reports utilizing 3-6 Nguyen pads per day due to episodes of mixed urinary incontinence. She otherwise offers no other issues or concerns at this time. [facility] Medical History Hyperlipidemia Surgical History History of tubal ligation History of appendectomy Family History Father History of quadruple bypass Multiple myeloma Diabetes Heart attack Brother Aortic valve replaced Social History Patient Tobacco Use Status: Current everyday Tobacco user Review of Systems Const All systems reviewed & are unremarkable except as noted in HPI and below Physical Exam Const General: cooperative, healthy appearing, comfortable, no acute distress, well developed, alert and awake Orientation/consciousness: patient oriented x3 Limitations: no limitations HEENT Head: Yes normal to inspection, Yes normocephalic and Yes atraumatic Ears: hearing grossly normal bilaterally Eyes General: appearance normal, both eyes and all related structures Neck Neck: Yes normal visual inspection and Yes trachea midline Chest Chest palpation & inspection: normal inspection of the chest Resp Effort & Inspection: normal respiratory effort and able to speak in complete sentences Cardio Rate: regular rate GI Inspection: Yes normal to inspection General: Yes no CVA tenderness Back/Spine/Pelvis Back: no CVA tenderness Skin General skin exam: no rashes or lesions noted Neuro General: patient oriented x3 Extrem General: Yes normal to inspection Psych Appearance: grossly normal and well kempt Mental Status: mental status grossly normal Speech and movement: Normal speech and movement present and Clear speech present Affect: normal affect Attitude: cooperative Thought process: Normal thought process present Thought content: Normal thought content present Insight: Fair insight present (Psych) Judgement: Fair judgement present (Psych) Office Procedures Post Void Residual Post Residual Void Post Void Residual (PVR): 0 16551-Cicm Void Residual by ultrasound Results AMB Urinalysis, Automated UA Leukoctes 0 Gus/uL Last Edit by Ramona Echols CMA on 07/22/23 14 :18 UA Nitrite Negative Last Edit by Ramona Echols CMA on 07/22/23 14: 18 UA Urobilinogen 0.2 mg/dL Last Edit by [facility] on 4 14:18 UA Protein 0 mg/dL Last Edit by [facility] on 07/22/23 14:18 UA pH 5.5 Last Edit by [facility] on 07/22/23 14:18 UA Blood 0 Deep/uL Last Edit by [facility] on 07/22/23 14:18 UA Specific Kenvir 1.025 Last Edit by [facility] on 14:18 UA Ketone Negative Last Edit by [facility] on 07/22/23 14:1 8 UA Bilirubin 0 mg/dL Last Edit by [facility] on 07/22/23 14: 18 UA Glucose 0 mg/dL Last Edit by [facility] on 07/22/23 14:18 Results Reviewed Results Reviewed: Laboratory Last Values Urine pH (Auto) 5.5 07/22/23 14:16 Specific Kenvir (Auto) 1.025 07/22/23 14:16 Urine Protein (Auto) 0 mg/dL 07/22/23 14:16 Glucose (UA)(Auto) 0 mg/dL 07/22/23 14:16 Urine Ketones (Auto) Negative 07/22/23 14:16 Urine Blood (Auto) 0 Deep/uL 07/22/23 14:16 Urine Nitrite (Auto) Negative 07/22/23 14:16 Urine Bilirubin (Auto) 0 mg/dL 07/22/23 14:16 Urine Urobilinogen (Auto) 0.2 mg/dL 07/22/23 14:16 Leukocyte Esterase (Auto) 0 Gus/uL 07/22/23 14:16 Assessment & Plan Assessment & Plan (1) Mixed stress and urge urinary incontinence: Code(s): N39.46 - Mixed incontinence Plan In office urinalysis results reviewed with the patient today; as noted above. PVR 0 mL. Will refer to pelvic floor therapy for further assessment evaluation. Start tolterodine 2 mg as discussed and prescribed; discussed increasing to 4 mg his symptoms improve. Discussed bladder triggers/irritants. Discussed at length potential causes for mixed urinary incontinence. Will obtain retroperitoneal ultrasound for further assessment evaluation. Discussed importance of timed/scheduled voiding to assist with decreasing episodes of urinary incontinence. Discussed and educated on the importance of limiting/quitting nicotine dependence for overall health and well-being. Follow-up in 6-8 weeks with imaging to be completed prior and PVR at next office visit; or sooner with any issues, concerns, and or questions. Orders: Orders AMB Post Void Residual by ultrasound Today R33.9 - Retention of urine, unspecified AMB Urinalysis Automated Today R33.9 - Retention of urine, unspecified US retroperitoneal comp Today N39.46 - Mixed incontinence Medications: New tolterodine ER May increase dosage to two tablets daily 2 mg PO DAILY 30 days 30 caps 1RF R39.15 - Urgency of urination Patient Instructions: The patient had an opportunity to ask questions regarding the treatment plan. All questions were answered. Physical exam, labs, and imaging were discussed and reviewed in detail. As well as risks, benefits, and discussion of treatment choices. No major barriers to understanding were identified. The patient expressed understanding and agreement with the above treatment plan. The patient was made aware they should contact our office by phone for worsening of their current condition, the appearance of new symptoms, or with any questions or concerns. Compliance is encouraged with any medications and follow up testing that is ordered. It is a privilege to be allowed the opportunity to participate in? your urological care.? Again, if you have any questions or concerns If you have any questions or concerns please do not hesitate to contact me. The office is [phone]. This note is constructed using voice recognition software. While every effort has been made to ensure accuracy staff nurse anesthetist errors may have been included. Yours sincerely, ANUJ Cary Coding Level of Care Code New Pt Level 4 (13020) Diagnoses Mixed stress and urge urinary incontinence N39.46 CPT Codes Post Residual Void - PVR CPT Code: 34396-Xhjj Void Residual by ultrasound ([id number])
== END 2023-07-22 14:32 | disposition home or self-care (01) ==
PROVIDERS: PCP Internal Medicine; Visit Provider Nurse Practitioner Family
DX: N39.46 Mixed incontinence (principal); R33.9 Retention of urine, unspecified
CPT/HCPCS: 99204

== ENCOUNTER → 2023-07-22 13:44 | Outpatient (BNVA) | payer OTHER, SELFPAY | PROVIDERS: PCP Internal Medicine; Visit Provider Nurse Practitioner Family | DX: N39.46 Mixed incontinence (principal); R33.9 Retention of urine, unspecified | CPT/HCPCS: 51798; 81003 ==

== ENCOUNTER 2023-08-05 13:48 | Outpatient (AMB) | payer OTHER, SELFPAY ==
--- NOTE | 2023-08-05 14:07 | A.OFFVIS_ITS ---
Intake Vital Signs 08/05/23 14:08 Height 5 ft 1 in Weight 138 lb 14.259 oz BMI 26.2 BP 108/62 Blood Pressure Location Rt brachial Position Sitting Pulse 75 Intake Visit Reasons: 2 mth f/up stress echo/ echo Intake Note: 2 month follow up Counterperson Required: No Accompanied by: Self / Same As Patient Allergies midazolam [From Versed] Adverse Reaction (Intermediate, Verified 08/05/23 14:09) Rash morphine Adverse Reaction (Intermediate, Verified 08/05/23 14:09) Unknown Myrbetriq Adverse Reaction (Severe, Uncoded 08/05/23 14:09) hives Medication List - Last Reconciled 08/05/23 by Robe Samaniego MD B.coagulans-digestive enzym 10 2 billion cell (Digestive Advantage Probiotics Plus Gas) caps PO escitalopram oxalate 20 mg PO DAILY evolocumab (Repatha SureClick) 140 mg subcut Q2W tolterodine ER 2 mg PO DAILY HPI HPI Comments History of Present Illness Details Monica is here for evaluation regarding possible coronary disease. She was initially seen by our nurse practitioner Holter stress echocardiogram. Essentially, it seems that she has evidence of vascular calcification on CT in [place] but not clear what it was. She did see cardiology in the [place] area but has moved to [facility] at this time. Hence establishing care. Apparently lot of family members have had coronary disease in relatively younger years and hence she has been undergoing workup. She underwent a calcium scoring CT scan in 2019 and that showed a score of 0. There was a plan to repeat this in about 5 years but not done yet. In the interim, she has been having some nonspecific tiredness apparently. That led to a ETT followed by exercise stress echocardiogram. Patient herself does not have any clear-cut symptoms like angina. She does workout in the gym extra. Unfortunately she also smokes. She has a history of statin intolerance and hence on Repatha. [facility] Medical History Hyperlipidemia Surgical History History of tubal ligation History of appendectomy Family History Father History of quadruple bypass Multiple myeloma Diabetes Heart attack Brother Aortic valve replaced Social History Patient Tobacco Use Status: Current everyday Tobacco user Review of Systems Const Denies weakness ENT Denies dizziness Card Denies chest pain, Denies chest pain with activity, Denies syncope, Denies pedal edema, Denies edema, Denies leg edema, Denies lightheadedness, Denies palpitations, Denies dyspnea, Denies dyspnea on exertion and Denies orthopnea Resp Denies cough, Denies dyspnea and Denies dyspnea on exertion GI Denies hematochezia and Denies change in stool character Musc Denies abnormal gait, Denies muscle cramps, Denies muscle weakness, Denies numbness, Denies radiating pain into limb and Denies tingling Neuro Denies abnormal gait, Denies dizziness, Denies syncope, Denies numbness, Denies tingling and Denies weakness Endo Denies palpitations Physical Exam Vital Signs: Last Vital Signs Pulse 75 08/05/23 14:08 BP 108/62 08/05/23 14:08 BMI result Body Mass Index 26.2 Const General: comfortable and no acute distress Orientation/consciousness: patient oriented x3 HEENT Other: Unremarkable Head: Yes normal to inspection Neck Neck: Yes normal visual inspection Chest Chest palpation & inspection: normal inspection of the chest Resp Auscultation: clear to auscultation bilaterally Cardio Palpation: normal PMI Heart sounds: S1 normal heart sound present, S2 normal heart sound present, no gallops, no murmurs and no rubs GI Palpation (GI): Soft to palpation Back/Spine/Pelvis Other: unremarkable Skin General skin exam: no rashes or lesions noted Neuro General: patient oriented x3 Extrem General: Yes normal to inspection Psych Mental Status: mental status grossly normal Assessment & Plan Assessment & Plan (1) Vascular calcification: Code(s): I99.8 - Other disorder of circulatory system (2) Hyperlipidemia: Code(s): E78.5 - Hyperlipidemia, unspecified (3) Statin intolerance: Code(s): Z78.9 - Other specified health status (4) Family history of premature coronary artery disease: Code(s): Z82.49 - Family history of ischemic heart disease and other diseases of the circulatory system (5) Smoking: Code(s): F17.200 - Nicotine dependence, unspecified, uncomplicated Plan Cardiac studies reviewed. EKG shows sinus rhythm with some mild nonspecific changes. In the ETT, there is question of ST depressions but she exercised for 10 Mets but no angina. This has been repeated with an exercise stress echocardiogram where she again did more than [address]-T changes but again no angina and the echocardiographic portion was also unremarkable. Overall, normal study. In the transthoracic echocardiogram, LVEF 55-60% with normal diastolic filling and otherwise unremarkable. Overall, history of smoking, premature CAD in family, apparently evidence of vascular calcification on prior CT, previous calcium score of 0 in 2019. Again mainly aggressive risk factor modification. Must stop smoking and we discussed about that today. With regard to lipids, she cannot take statins and hence on Repatha. Has taken Zetia in the past but not anymore. As it has been about 5 years since the last calcium score, reasonable to repeat. If that is positive, even more of a reason to stop smoking. Total time spent including review of data, counseling, documentation, coordination of care 35 minutes. Orders: Orders CT Coronary Calcium Score Today I25.10 - Atherosclerotic heart disease of [place] coronary artery without angina pectoris Medications: Changed From tolterodine ER May increase dosage to two tablets daily 2 mg PO DAILY 30 days 30 caps 1RF R39.15 - Urgency of urination To tolterodine ER May increase dosage to two tablets daily 2 mg PO DAILY R39.15 - Urgency of urination Coding Level of Care Code Est Pt Level 4 (70595) Diagnoses Vascular calcification I99.8 Hyperlipidemia E78.5 Statin intolerance Z78.9 Family history of premature coronary artery disease Z82.49 Smoking F17.200
[2023-08-05 14:08] VITALS: BP 108/62; PULSE 75; BMI 26.2
== END 2023-08-05 14:30 | disposition home or self-care (01) ==
PROVIDERS: PCP Internal Medicine; Visit Provider Internal Medicine
DX: I99.8 Other disorder of circulatory system (principal); E78.5 Hyperlipidemia, unspecified; Z78.9 Other specified health status; Z82.49 Family history of ischemic heart disease and other diseases of the circulatory system; F17.200 Nicotine dependence, unspecified, uncomplicated
CPT/HCPCS: 99214

== ENCOUNTER → 2023-08-05 13:48 | Outpatient (BNVA) | payer OTHER, SELFPAY | PROVIDERS: PCP Internal Medicine; Visit Provider Internal Medicine ==

== ENCOUNTER 2023-08-17 13:32 | Outpatient (REF) | payer OTHER, SELFPAY ==
--- NOTE | ~2023-08-17 | US_ITS ---
EXAMINATION: US RETROPERITONEAL COMPLETE (RENAL) CLINICAL INFORMATION: Mixed incontinence. COMPARISON: CT abdomen and pelvis 07/25/2022. TECHNIQUE: Real-time imaging of the kidneys and bladder. FINDINGS: RIGHT KIDNEY: 8.6 x 5.6 x 3.9 cm (SAG x AP x TRV). The kidney is normal in size, contour, and echogenicity. Renal cortical thickness is normal. No calculi or focal parenchymal lesions. No hydronephrosis. LEFT KIDNEY: 8.8 x 4.6 x 4.0 cm (SAG x AP x TRV). The kidney is normal in size, contour, and echogenicity. Renal cortical thickness is normal. No calculi or focal parenchymal lesions. No hydronephrosis. BLADDER: Well distended and normal. Bilateral ureteral jets are demonstrated. Prevoid bladder volume is 185 mL. Postvoid bladder volume is 9.6 mL. US/US retroperitoneal comp IMPRESSION: Unremarkable renal ultrasound.
== END 2023-08-17 13:33 | disposition home or self-care (01) ==
LOC: HO.US 13:32
PROVIDERS: PCP Internal Medicine; Visit Provider Nurse Practitioner Family
DX: N39.46 Mixed incontinence (principal)
CPT/HCPCS: 76770

== ENCOUNTER 2023-09-02 13:56 | Outpatient (AMB) | payer OTHER, SELFPAY ==
--- NOTE | 2023-09-02 13:58 | MHC.OFFVIS ---
Intake Intake Visit Reasons: 6w follow up(set) Intake Note: Patient presents today for follow up visit for Urinary Incontinence Urology Medications: tolterodine Blood Thinner: none PVR: Python Web Developer Required: No Accompanied by: Self / Same As Patient Allergies midazolam [From Versed] Adverse Reaction (Intermediate, Verified 09/02/23 14:26) Rash morphine Adverse Reaction (Intermediate, Verified 09/02/23 14:26) Unknown Myrbetriq Adverse Reaction (Severe, Uncoded 09/02/23 14:26) hives Medication List - Last Reconciled 09/02/23 by ROSELINE Cary- B.coagulans-digestive enzym 10 2 billion cell (Digestive Advantage Probiotics Plus Gas) caps PO escitalopram oxalate 20 mg PO DAILY evolocumab (Repatha SureClick) 140 mg subcut Q2W tolterodine ER 4 mg (2 x 2 mg) PO DAILY 90 days HPI HPI Comments History of Present Illness Details Monica is a very pleasant 58-year-old female patient of Dr. Obregon. She has a past medical history of hyperlipidemia and nicotine dependence. She presents to the office today for follow-up. Of note, patient was seen approximately 6 weeks ago as a new patient for mixed urinary incontinence at which time a retroperitoneal ultrasound was ordered for further assessment evaluation and the patient was started on 2 mg of tolterodine daily. In discussion with the patient today she reports to be doing and feeling well. She reports significant improvement in lower urinary tract symptoms on tolterodine 2 mg daily. Recent retroperitoneal ultrasound results reviewed with the patient today. Bilateral kidneys with no calculi, lesions, and or hydronephrosis. The bladder is distended and normal. Bilateral ureteral jets are demonstrated. Pre void bladder volume is approximately 185 mL. Postvoid bladder volume is approximately 10 mL. Unremarkable renal ultrasound. When asked she does report a previous history of 2 vaginal births, average size babies, and labors to be somewhat short. She otherwise denies nocturia, hematuria, dysuria, foul smelling urine, changes to urinary stream, flank pain, fever, and or chills. Discussed at length potential causes for mixed urinary incontinence. Discussed further treatment options with pelvic floor therapy, in office urodynamics and or cystoscopy for further assessment evaluation. In office urinalysis results reviewed with the patient today. PVR 0 mL. She had been utilizing 3-6 Nguyen pads per day however is down to 1 peripad. She otherwise offers no other issues or concerns at this time. [facility] Medical History Hyperlipidemia Surgical History History of tubal ligation History of appendectomy Family History Father History of quadruple bypass Multiple myeloma Diabetes Heart attack Brother Aortic valve replaced Social History Patient Tobacco Use Status: Current everyday Tobacco user Review of Systems Const All systems reviewed & are unremarkable except as noted in HPI and below Physical Exam Const General: cooperative, healthy appearing, comfortable, no acute distress, well developed, alert and awake Orientation/consciousness: patient oriented x3 Limitations: no limitations HEENT Head: Yes normal to inspection, Yes normocephalic and Yes atraumatic Ears: hearing grossly normal bilaterally Eyes General: appearance normal, both eyes and all related structures Neck Neck: Yes normal visual inspection and Yes trachea midline Chest Chest palpation & inspection: normal inspection of the chest Resp Effort & Inspection: normal respiratory effort and able to speak in complete sentences Cardio Rate: regular rate GI Inspection: Yes normal to inspection General: Yes no CVA tenderness Back/Spine/Pelvis Back: no CVA tenderness Skin General skin exam: no rashes or lesions noted Neuro General: patient oriented x3 Extrem General: Yes normal to inspection Psych Appearance: grossly normal and well kempt Mental Status: mental status grossly normal Speech and movement: Normal speech and movement present and Clear speech present Affect: normal affect Attitude: cooperative Thought process: Normal thought process present Thought content: Normal thought content present Insight: Fair insight present (Psych) Judgement: Fair judgement present (Psych) Office Procedures Post Void Residual Post Residual Void Post Void Residual (PVR): 0 [id number] Void Residual by ultrasound Results AMB Urinalysis, Automated UA Leukoctes 70 Gus/uL Last Edit by Raman Lomas on 09/02/23 14:26 UA Nitrite Negative Last Edit by Raman Lomas on 09/02/23 14:26 UA Urobilinogen 0.2 mg/dL Last Edit by Raman Lomas on 09/02/23 14:26 UA Protein 0 mg/dL Last Edit by Raman Lomas on 09/02/23 14:26 UA pH 5.5 Last Edit by Raman Lomas on 09/02/23 14:26 UA Blood 25 Deep/uL Last Edit by Raman Lomas on 09/02/23 14:26 UA Specific [place] 1.020 Last Edit by Raman Lomas on 09/02/23 14:26 UA Ketone Negative Last Edit by Raman Lomas on 09/02/23 14:26 UA Bilirubin 0 mg/dL Last Edit by Raman Lomas on 09/02/23 14:26 UA Glucose 0 mg/dL Last Edit by Raman Lomas on 09/02/23 14:26 Results Reviewed Results Reviewed: Laboratory Last Values Urine pH (Auto) 5.5 09/02/23 14:03 Specific [place] (Auto) 1.020 09/02/23 14:03 Urine Protein (Auto) 0 mg/dL 09/02/23 14:03 Glucose (UA)(Auto) 0 mg/dL 09/02/23 14:03 Urine Ketones (Auto) Negative 09/02/23 14:03 Urine Blood (Auto) 25 Deep/uL 09/02/23 14:03 Urine Nitrite (Auto) Negative 09/02/23 14:03 Urine Bilirubin (Auto) 0 mg/dL 09/02/23 14:03 Urine Urobilinogen (Auto) 0.2 mg/dL 09/02/23 14:03 Leukocyte Esterase (Auto) 70 Gus/uL 09/02/23 14:03 Date of Service: 08/17/23 FINDINGS: RIGHT KIDNEY: 8.6 x 5.6 x 3.9 cm (SAG x AP x TRV). The kidney is normal in size, contour, and echogenicity. Renal cortical thickness is normal. No calculi or focal parenchymal lesions. No hydronephrosis. LEFT KIDNEY: 8.8 x 4.6 x 4.0 cm (SAG x AP x TRV). The kidney is normal in size, contour, and echogenicity. Renal cortical thickness is normal. No calculi or focal parenchymal lesions. No hydronephrosis. BLADDER: Well distended and normal. Bilateral ureteral jets are demonstrated. Prevoid bladder volume is 185 mL. Postvoid bladder volume is 9.6 mL. IMPRESSION: Unremarkable renal ultrasound. Assessment & Plan Assessment & Plan (1) Mixed stress and urge urinary incontinence: Code(s): N39.46 - Mixed incontinence Plan In office urinalysis results reviewed with the patient today; as noted above. PVR 0 mL. Recent retroperitoneal ultrasound results reviewed with the patient today; as noted above. Patient reports significant improvement in mixed urinary incontinence with tolterodine 2 mg daily Continue tolterodine as discussed and prescribed. Discussed at length importance of limiting/quitting nicotine dependence for improvement in lower urinary tract symptoms as well as overall health and well-being. Discussed bladder triggers/irritants. Follow-up with pelvic floor therapy for further assessment evaluation; referral submitted at last office visit Follow-up in 6 months with PVR; or sooner with any issues, concerns, and or questions. Orders: Orders AMB Urinalysis Automated Today Z13.9 - Encounter for screening, unspecified AMB Post Void Residual by ultrasound Today N39.46 - Mixed incontinence Urine Cytology Today F17.200 - Nicotine dependence, unspecified, uncomplicated, Z13.9 - Encounter for screening, unspecified Medications: Changed From tolterodine ER May increase dosage to two tablets daily 2 mg PO DAILY R39.15 - Urgency of urination To tolterodine ER 4 mg (2 x 2 mg) PO DAILY 90 days 180 caps 2RF R39.15 - Urgency of urination Patient Instructions: The patient had an opportunity to ask questions regarding the treatment plan. All questions were answered. Physical exam, labs, and imaging were discussed and reviewed in detail. As well as risks, benefits, and discussion of treatment choices. No major barriers to understanding were identified. The patient expressed understanding and agreement with the above treatment plan. The patient was made aware they should contact our office by phone for worsening of their current condition, the appearance of new symptoms, or with any questions or concerns. Compliance is encouraged with any medications and follow up testing that is ordered. It is a privilege to be allowed the opportunity to participate in? your urological care.? Again, if you have any questions or concerns If you have any questions or concerns please do not hesitate to contact me. The office is [phone]. This note is constructed using voice recognition software. While every effort has been made to ensure accuracy authorization representative errors may have been included. Yours sincerely, Isabella Rivas, STEAMBLASTER-BC Coding Level of Care Code Est Pt Level 3 (63991) Diagnoses Mixed stress and urge urinary incontinence N39.46 CPT Codes Post Residual Void - PVR CPT Code: 17638-Xrqm Void Residual by ultrasound ([id number])
== END 2023-09-02 15:27 | disposition home or self-care (01) ==
PROVIDERS: PCP Internal Medicine; Visit Provider Nurse Practitioner Family
DX: N39.46 Mixed incontinence (principal)
CPT/HCPCS: 99213

== ENCOUNTER 2023-09-02 13:56 | Outpatient (REF) | payer OTHER, SELFPAY ==
[2023-09-02 17:10] LABS: Urine Cytology See Pathology rpt
== END 2023-09-02 13:57 | disposition home or self-care (01) ==
LOC: HO.LNP 13:56
PROVIDERS: PCP Internal Medicine; Visit Provider Nurse Practitioner Family
DX: Z13.9 Encounter for screening, unspecified (principal); N39.46 Mixed incontinence; F17.200 Nicotine dependence, unspecified, uncomplicated
CPT/HCPCS: 51798; 81003; 88112

== ENCOUNTER 2023-09-05 11:22 | Outpatient (AMB) | payer OTHER, SELFPAY ==
--- NOTE | 2023-09-05 11:26 | MHC.OFFWIV ---
Intake Vital Signs 09/05/23 11:27 Height 5 ft 1 in Weight 141 lb 8 oz BMI 26.7 BP 120/64 Blood Pressure Location Lt brachial Position Sitting Pulse 82 Pulse Source Pulse Oximeter Temp 100.0 F Temp Source Oral Pulse Oximetry (%) 99 Oxygen Delivery Method Room Air Intake Visit Reasons: EP Diverticulitis Intake Note: Patient is here with bad bout of diverticulitis. Patient Tobacco Use Status: Current everyday Tobacco user Allergies midazolam [From Versed] Adverse Reaction (Intermediate, Verified 09/06/23 08:53) Rash morphine Adverse Reaction (Intermediate, Verified 09/06/23 08:53) Unknown Myrbetriq Adverse Reaction (Severe, Uncoded 09/05/23 11:30) hives Do you need a note to return to daycare/school/sports/work: No HPI EP Diverticulitis HPI Details Patient is a 58-year-old female with history of 5 episodes of diverticulitis in the past, most recently just under a year ago, who comes to the walk-in with recurrent left lower quadrant abdominal pain a few days after feeling chills. She requests outpatient treatment with Augmentin, which has cleared her symptoms in the past. She is able to water and food. She denies weakness or dizziness, nausea vomiting right-sided abdominal pain, pelvic pain, flank or back pain, urinary symptoms, or other significant associated symptoms. She reports that she does currently a GI specialist, although she plans to contact her PCP on Thursday who works for [employer], to discuss a GI referral. Apparently it had been recommended in the past, but had not gone through for her. [facility] Medical History Hyperlipidemia Surgical History History of tubal ligation History of appendectomy Family History Father History of quadruple bypass Multiple myeloma Diabetes Heart attack Brother Aortic valve replaced Social History Patient Tobacco Use Status: Current everyday Tobacco user Smoked in Last 30 Days: No Use of substances other than those prescribed or required for medical reasons: No Advance Directives: No Advance Directives Information Provided: No Review of Systems Const All systems reviewed & are unremarkable except as noted in HPI and below Physical Exam Vital Signs: Last Vital Signs Temp 100.0 F 09/05/23 11:27 Pulse 82 09/05/23 11:27 BP 120/64 09/05/23 11:27 Pulse Ox 99 09/05/23 11:27 Oxygen Delivery Method Room Air 09/05/23 11:27 BMI result Body Mass Index 26.7 Const General: cooperative, alert, awake, Physically active and well groomed; No anxious, diaphoretic, ill appearing, intoxicated appearing, poor hygiene or tired appearing Nutritional Appearance: average body habitus Orientation/consciousness: oriented to person Limitations: no limitations Resp Effort & Inspection: normal respiratory effort, able to speak in complete sentences, no audible wheezes, no cough, no grunting, not labored, no nasal flaring, no retractions and symmetric chest movement Auscultation: clear to auscultation bilaterally, no crackles, no rales, no rhonchi, no wheezes, lung sounds not diminished and No rub present Cardio Palpation: normal PMI Rate: regular rate Rhythm: regular rhythm Heart sounds: S1 normal heart sound present and S2 normal heart sound present GI Palpation (GI): Soft to palpation, not firm, Tenderness to palpation present (GI) in the LLQ, no guarding, not rigid and No hepatosplenomegaly present Skin Other: Good color, warm and dry Neuro General: oriented to person Psych Appearance: grossly normal Mental Status: mental status grossly normal Speech and movement: Normal speech and movement present Affect: normal affect Attitude: cooperative Thought process: Normal thought process present Insight: Good insight present (Psych) Judgement: Good judgement present (Psych) Results AMB Urinalysis, Automated UA Leukoctes 0 Gus/uL Last Edit by Ragini Wright CMA on 09/05/23 12:08 UA Nitrite Negative Last Edit by Ragini Wright CMA on 09/05/23 12:08 UA Urobilinogen 0.2 mg/dL Last Edit by Ragini Wright CMA on 09/05/23 12:08 UA Protein 0 mg/dL Last Edit by Ragini Wright CMA on 09/05/23 12:08 UA pH 6.0 Last Edit by Ragini Wright CMA on 09/05/23 12:08 UA Blood 10 Deep/uL Last Edit by Ragini Wright, FOLDER OPERATOR on 09/05/23 12:08 UA Specific [place] 1.005 Last Edit by Ragini Wright, MARCO A on 09/05/23 12:08 UA Ketone Negative Last Edit by Ragini Wright, MARCO A on 09/05/23 12:08 UA Bilirubin 0 mg/dL Last Edit by Ragini Wright, FOLDER OPERATOR on 09/05/23 12:08 UA Glucose 0 mg/dL Last Edit by Ragini Wright, MARCO A on 09/05/23 12:08 Results Reviewed Results Reviewed: Laboratory Last Values Urine pH (Auto) 6.0 09/05/23 12:06 Specific [place] (Auto) 1.005 09/05/23 12:06 Urine Protein (Auto) 0 mg/dL 09/05/23 12:06 Glucose (UA)(Auto) 0 mg/dL 09/05/23 12:06 Urine Ketones (Auto) Negative 09/05/23 12:06 Urine Blood (Auto) 10 Deep/uL 09/05/23 12:06 Urine Nitrite (Auto) Negative 09/05/23 12:06 Urine Bilirubin (Auto) 0 mg/dL 09/05/23 12:06 Urine Urobilinogen (Auto) 0.2 mg/dL 09/05/23 12:06 Leukocyte Esterase (Auto) 0 Gus/uL 09/05/23 12:06 Remarkable Only for trace blood Assessment & Plan Assessment & Plan (1) Diverticulitis: Code(s): K57.92 - Diverticulitis of intestine, part unspecified, without perforation or abscess without bleeding Plan Patient is a 58-year-old female with history of 5 episodes of diverticulitis in the past, most recently just under a year ago, who comes to the walk-in with recurrent left lower quadrant abdominal pain. Her evaluation is remarkable for left lower quadrant tenderness in the absence of any other remarkable findings, and her vitals are stable with no current indications of sepsis. Urine dip shows only trace heme. We discussed that we could start her on outpatient treatment for this, but that she needed to monitor it closely and go to emergency department if she worsens. She had already started with oral pain medication along with restricting her diet, and symptoms had not improved in 5 days, so I wrote her for a 10 day course of Augmentin, which has cleared symptoms for her in the past. As this is her 6th episode, we also discussed that a referral to GI is appropriate, and she will be contacting her PCP on Thursday, who is affiliated with [employer]. Apparently a GI referral had been recommended in the past, but had not gone through. I will send over a copy of this visit to them. In the meantime, she knows to follow up as soon as able, and to go to emergency department with worsening symptoms. Orders: Orders AMB Urinalysis Automated 09/05/23 N39.46 - Mixed incontinence Medications: New amoxicillin-pot clavulanate 875-125 mg 1 tab PO BID 20 tabs 0RF Coding Level of Care Code Est Pt Level 4 (13313) Diagnoses Diverticulitis K57.92
[2023-09-05 11:27] VITALS: BP 120/64; PULSE 82; TEMP 37.8; O2SAT 99; BMI 26.7
== END 2023-09-05 12:37 | disposition home or self-care (01) ==
PROVIDERS: PCP Internal Medicine; Visit Provider Physician Assistant Medical
DX: K57.92 Diverticulitis of intestine, part unspecified, without perforation or abscess without bleeding (principal)
CPT/HCPCS: 81003; 99051; 99214

== ENCOUNTER 2023-09-06 08:38 | Emergency (ER) | payer OTHER, SELFPAY ==
--- NOTE | ~2023-09-06 | CT_ITS ---
EXAMINATION: CT ABDOMEN AND PELVIS WITHOUT CONTRAST CLINICAL INFORMATION: Lower abdominal pain history of diverticulitis COMPARISON: Prior examinations most recent CT July 2022 TECHNIQUE: Multidetector volumetric imaging was performed from the superior aspect of the liver through the pubic symphysis. Sagittal and coronal reformatted images were obtained on the technologist's workstation. This CT examination was performed using dose optimization techniques as appropriate, variously including the following: *Automated exposure control *Adjustment of mA and/or kV according to patient size (this includes techniques or standardized protocols for targeted exams where dose is matched to indication/reason for exam; i.e. extremities or head) *Use of iterative reconstruction technique DLP: 430 mGy-cm FINDINGS: LUNG BASES: The visualized lung bases are unremarkable. LIVER, GALLBLADDER, AND BILIARY TREE: The liver is normal in size, shape, and attenuation. No focal hepatic lesion or biliary ductal dilatation is present. The gallbladder is unremarkable with no evidence of radiopaque gallstones, gallbladder wall thickening, or obvious pericholecystic inflammatory changes. PANCREAS: Unremarkable. SPLEEN: Unremarkable. ADRENAL GLANDS: Unremarkable. KIDNEYS AND URETERS: The kidneys are normal in size, shape, and attenuation. No hydronephrosis, hydroureter, or calculi seen. No perinephric stranding. BLADDER: Unremarkable. GASTROINTESTINAL TRACT: There is scattered diverticula throughout the distal descending colon and sigmoid colon. There is pericolonic inflammatory changes in bowel wall thickening in the sigmoid colon slightly more prominent than on the prior examination. No adjacent fluid collection or gas outside of the bowel. Findings compatible with diverticulitis. Slightly more prominent than previous. Large bowel otherwise unremarkable. Appendix not visualized however no inflammatory changes in the right lower quadrant. Small bowel loops normal. Stomach normal. ABDOMINAL WALL: No significant hernia is appreciated. LYMPH NODES: Normal. VASCULAR: Mild to Moderate calcific atherosclerotic disease unchanged. PELVIC VISCERA: Unremarkable. OSSEOUS STRUCTURES: Right L5-S1 facet arthrosis CT/CT abdomen pelvis wo IV con IMPRESSION: 1. Findings compatible with diverticulitis of the sigmoid colon slightly more prominent than on the prior examination. No evidence for abscess formation or perforation. 2. Calcific atherosclerotic disease. 3. Right L5-S1 facet arthrosis. Fleischner guidelines were followed.
[2023-09-06 08:48] VITALS: BP 123/66; PULSE 96; RESP 20; TEMP 36.6; O2SAT 98; BMI 26.4
[2023-09-06] MEDS: Acetaminophen 325 MG TABLET 975 MG PO (08:56)
[2023-09-06 09:03] LABS: MANUAL DIFF FLAG NO
[2023-09-06 09:06] LABS: Basophils Percent Auto 0.3 % (0-2); Eosinophils Absolute Auto 0.1 X10*3/uL (0.0-0.4); Eosinophils Percent Auto 0.9 % (0-4); Hematocrit 40.8 % (37.0-47.0); Hemoglobin 13.7 g/dl (12.0-16.0); Imm Gran Abs Auto 0.03 X10*3/uL (0.00-0.03); Imm Gran Pct Auto 0.3 % (0.0-0.4); Lymphocytes Absolute Auto 1.1 X10*3/uL (1.2-4.9); Lymphocytes Percent Auto 11.9 % (20-40); Mean Corpuscular HGB Conc 33.6 g/dl (31.0-35.0); Mean Corpuscular Hemoglobin 30.6 pg (27.0-33.0); Mean Corpuscular Volume 91.1 fL (80.0-98.0); Mean Platelet Volume 8.8 fL (9.4-12.3); Monocytes Absolute Auto 0.9 X10*3/uL (0.1-1.2); Monocytes Percent Auto 9.7 % (2-11); Neutrophils Percent Auto 76.9 % (45-73); Platelet Count 254 X10*3/uL (160-400); Red Blood Count 4.48 X10*6/uL (4.20-5.50); Red Cell Distribution Width 12.6 % (11.0-16.0); White Blood Count 9.1 X10*3/uL (4.8-10.8)
[2023-09-06 09:15] LABS: Appearance Urine Clear; Color Urine Yellow; Glucose Urine UA Negative (Negative); Leukocyte Esterase Urine Trace (Negative); Nitrite Urine Negative (Negative); UMIC TRIGGER UACC YES; Urine Blood Small (1+) (Negative); Urine Ketones Negative (Negative); Urine Protein Negative (Neg-Trace)
[2023-09-06 09:20] LABS: Bacteria Urine None Seen (None Seen); Hyaline Casts Urine 0-2 /LPF (0-2); Squamous Epithelial Cell Urine 0-2 /HPF (0-2); WBC Urine 0-5 /HPF (0-5)
--- NOTE | 2023-09-06 09:42 | ED_ITS ---
HPI - General Adult General Chief complaint: Abdominal Pain Stated complaint: Diverticulitis Time Seen by Provider: 09/06/23 09:41 Source: patient Mode of arrival: ambulatory Limitations: no limitations History of Present Illness HPI narrative: Patient is a 58-year-old female with history of HLD, diverticulitis presenting to the emergency department with complaint of lower abdominal pain for the past 3 days. She reports pain feels similar to previous episode of diverticulitis. Denies nausea, vomiting, diarrhea. Reports chills and states she was told she had a fever at urgent care yesterday where she was started on Augmentin. States she presented to the ED as pain has not improved after take 2 doses of the augmentin. Reports decreased appetite but has been tolerating fluids. Denies dysuria, frequency, hematuria or other urinary symptoms. MD complaint: abdominal pain Onset (ago): day(s) Location: abdomen Radiation: non-radiation Severity: severe Quality: aching Pain Consistency: constant Relieving factors: none Exacerbating factors: eating Associated symptoms: fever/chills Treatments prior to arrival: other Related Data Home Medications ?Medication ?Instructions ?Recorded ?Confirmed escitalopram oxalate 20 mg tablet 20 mg PO DAILY 01/13/23 08/05/23 B.coagulans 2 billion cap PO 07/22/23 08/05/23 cell-digestive enzymes combo no.10 capsule (Digestive Advantage Probiotics Plus Gas) Previous Rx's ?Medication ?Instructions ?Recorded evolocumab 140 mg/mL subcutaneous 140 mg subcut Q2W #2 mL 06/08/23 pen injector (Roman Rendon) tolterodine 2 mg capsule,extended 4 mg (2 x 2 mg) PO DAILY 90 days 09/02/23 release 24 hr #180 caps amoxicillin 875 mg-potassium 1 tab PO BID #20 tabs 09/05/23 clavulanate 125 mg tablet dicyclomine 10 mg capsule 10 mg PO TID #10 caps 09/06/23 Allergies Allergy/AdvReac Type Severity Reaction Status Date / Time midazolam [From Versed] AdvReac Intermediate Rash Verified 09/06/23 08:53 morphine AdvReac Intermediate Unknown Verified 09/06/23 08:53 Myrbetriq AdvReac Severe hives Uncoded 09/05/23 11:30 Review of Systems 2 Review of Systems: As per HPI. Yes all other systems are reviewed and are negative Constitutional: Constitutional: Reports as per [facility] Past Medical History Medical History Hyperlipidemia Surgical History History of tubal ligation History of appendectomy Family History Family History Father History of quadruple bypass Multiple myeloma Diabetes Heart attack Brother Aortic valve replaced Social History Social History Patient Tobacco Use Status: Current everyday Tobacco user Smoked in Last 30 Days: No Use of substances other than those prescribed or required for medical reasons: No Advance Directives: No Advance Directives Information Provided: No Physical Exam ED Vital Signs: Vital Signs - 24 hr 09/06/23 08:48 09/06/23 10:20 09/06/23 13:27 Temperature 98 F 97.8 F Pulse Rate 96 70 63 Respiratory Rate 20 18 18 Blood Pressure 123/66 116/76 122/60 Pulse Oximetry 98 98 97 Oxygen Delivery Method Room Air Room Air Room Air BMI result Body Mass Index 26.4 Vital signs have been reviewed and appear to be correct. Blood pressure normal. Heart rate normal. Respiratory rate normal. Temperature normal. Oxygen saturation normal. Const General: cooperative, healthy appearing and no acute distress Orientation/consciousness: oriented to person, oriented to place, oriented to time and patient oriented x3 Limitations: no limitations [facility] Head: Yes normocephalic and Yes atraumatic Ears: external ears normal General nose exam: Normal external nose present Face and sinus: Yes face symmetric Mouth: oropharynx normal and moist mucous membranes Throat: Yes uvula midline Eyes Pupils: Equal, round and reactive pupils present Neck Neck: Yes normal visual inspection and Yes supple Resp Effort & Inspection: normal respiratory effort and able to speak in complete sentences Auscultation: clear to auscultation bilaterally Cardio Rate: regular rate Rhythm: regular rhythm Heart sounds: S1 normal heart sound present and S2 normal heart sound present GI Inspection: Yes normal to inspection Palpation (GI): Soft to palpation, Tenderness to palpation present (GI) in the LLQ and in the RLQ, no guarding and No Rebound tenderness present Auscultation: normoactive bowel sounds General: Yes no CVA tenderness Back/Spine/Pelvis Back: no CVA tenderness Skin General skin exam: elasticity normal and turgor normal Neuro General: oriented to person, oriented to place, oriented to time, patient oriented x3, moves all extremities, no focal motor deficits and CN's II-XI intact bilaterally Cranial nerves: Yes Equal, round and reactive pupils present Cognition (Neuro): normal cognition Extrem General: Yes full ROM, Yes no pedal edema and Yes no calf tenderness Psych Mental Status: mental status grossly normal Affect: normal affect Thought process: Normal thought process present Medications Administered Discontinued Medications Generic Name Dose Route Start Last Admin Trade Name Freq PRN Reason Stop Dose Admin Acetaminophen 975 mg 09/06/23 08:54 09/06/23 08:56 Acetaminophen 325 Mg Tablet PO 09/06/23 08:55 975 mg ONCE ONE Administration Sodium Chloride 1,000 mls @ 999 mls/hr 09/06/23 10:00 09/06/23 10:10 Ns IV 09/06/23 11:00 999 mls/hr .Q1H1M ILANA Administration Ketorolac Tromethamine 15 mg 09/06/23 09:51 09/06/23 10:10 Ketorolac Tromethamine 15 Mg/Ml Vial IVPUSH 09/06/23 09:52 15 mg ONCE ONE Administration Medical Decision Making Medical Decision Making [facility] Narrative: Patient is a 58-year-old female with history of HLD, diverticulitis presenting to the emergency department with complaint of lower abdominal pain for the past 3 days. On exam patient is awake, A+Ox3, VS WNL, afebrile, normal neurological exam without focal deficits, physical exam findings as above. Given reported symptoms and physical exam findings, initial differential includes diverticulitis, UTI, appendicitis, constipation. Labs notable for no leukocytosis, no anemia, normal CMP. Significant delay in results of CMP due to this currently being a send-out, so CT A/P ordered without contrast. CT notable for diverticulitis of sigmoid colon without evidence of abscess or perforation. My interpretation is in agreement with the radiologist's interpretation. Differential Diagnosis Differential Diagnoses: The differential diagnosis associated with the presentation includes As per [facility] Admission/Observation Consideration of admission/observation: Escalation of care including admission/observation considered Patient would have been admitted to the hospital had their work up had any findings where hospital admission was appropriate and their clinical presentation warranted hospital admission. Lab Data [facility] Lab Attestation statement: I reviewed the patient's lab results. as per [facility]. 09/06/23 09:00 09/06/23 09:00 Labs: Lab Results 09/06/23 09/06/23 Range/Units 09:00 09:09 WBC 9.1 (4.8-10.8) X10*3/uL RBC 4.48 (4.20-5.50) X10*6/uL Hgb 13.7 (12.0-16.0) g/dl Hct 40.8 (37.0-47.0) % MCV 91.1 (80.0-98.0) fL MCH 30.6 (27.0-33.0) pg MCHC 33.6 (31.0-35.0) g/dl RDW 12.6 (11.0-16.0) % Plt Count 254 (160-400) X10*3/uL MPV 8.8 L (9.4-12.3) fL Immature Gran % (Auto) 0.3 (0.0-0.4) % Neut % (Auto) 76.9 H (45-73) % Lymph % (Auto) 11.9 L (20-40) % [place] % (Auto) 9.7 (2-11) % Eos % (Auto) 0.9 (0-4) % Baso % (Auto) 0.3 (0-2) % Lymph # (Auto) 1.1 L (1.2-4.9) X10*3/uL [place] # (Auto) 0.9 (0.1-1.2) X10*3/uL Eos # (Auto) 0.1 (0.0-0.4) X10*3/uL Baso # (Auto) 0.0 (0.0-0.2) X10*3/uL Abs Immat Gran (auto) 0.03 (0.00-0.03) X10*3/uL Absolute Neuts (auto) 7.0 (2.0-8.3) x10*3/uL Absolute Nucleated RBC 0.000 (0.0-0.012) X10*3/uL Nucleated RBC % (auto) 0.0 (0.0-0.2) /100WBC Sodium 139 (135-145) mmol/L Potassium 4.9 (3.3-5.1) mmol/L Chloride 103 (96-108) mmol/L Carbon Dioxide 27 (22-29) mmol/L Anion Gap 14 (12-20) BUN 13 (9-16) mg/dL Creatinine 0.82 (0.5-1.4) mg/dL Estim Creat Clear Calc 62.2 Estimated GFR > 60 Random Glucose 92 (60-115) mg/dL Calcium 9.8 (8.4-10.2) mg/dL Total Bilirubin 0.7 (0.0-1.0) mg/dL AST 20 (5-31) U/L ALT 10 (0-31) U/L Alkaline Phosphatase 103 (39-117) U/L Total Protein 7.5 (6.5-8.0) g/dL Albumin 3.9 (3.5-5.0) g/dL Urine Color Yellow Urine Appearance Clear Urine pH 6.0 (5.0-9.0) Ur Specific [place] 1.020 (1.005-1.025) Urine Protein Negative (Neg-Trace) mg/dL Urine Glucose (UA) Negative (Negative) mg/dL Urine Ketones Negative (Negative) mg/dL Urine Blood Small (1+) H (Negative) Urine Nitrite Negative (Negative) Ur Leukocyte Esterase Trace H (Negative) Urine RBC 6-10 H (0-2) /HPF Urine WBC 0-5 (0-5) /HPF Ur Squamous Epith Cells 0-2 (0-2) /HPF Urine Bacteria None Seen (None Seen) Hyaline Casts 0-2 (0-2) /LPF Independent Interpretation I performed an independent interpretation of an: CT Scan Interpretation: CT notable for diverticulitis of sigmoid colon without evidence of abscess or perforation Radiology Impression Discussion of test interpretation with radiology: I have reviewed the radiologist's reading. Radiologist Impression: CT/CT abdomen pelvis wo IV con IMPRESSION: 1. Findings compatible with diverticulitis of the sigmoid colon slightly more prominent than on the prior examination. No evidence for abscess formation or perforation. 2. Calcific atherosclerotic disease. 3. Right L5-S1 facet arthrosis. Fleischner guidelines were followed External Record Review External record reviewed: Inpatient record, Office record and Outpatient record Prescription Management I considered prescription management with: Pain Medication Discharge Plan Discharge Clinical Impression: Diverticulitis Patient Disposition: Home, Self-Care Instructions: Amoxicillin/Clavulanate Potassium (By mouth), Diverticulitis (ED), Diverticulitis Diet (ED) Additional Instructions: You were evaluated in the emergency department today for abdominal pain. Your evaluation including CT scan and labs showed that your symptoms are due to diverticulitis. Please continue to take your previously prescribed antibiotics. You are being prescribed Bentyl as needed for abdominal cramping. You should be sure to drink plenty of fluids. Please follow-up with your primary care provider. You are being referred to the legal financial specialist as requested. Return to the emergency department if you develop increasing abdominal pain, persistent vomiting, fever not improved with Tylenol and ibuprofen or any other concerning symptoms. Prescriptions: New dicyclomine 10 mg capsule 10 mg PO TID Qty: 10 0RF No Action Repatha SureClick 140 mg/mL pen injector 140 mg subcut Q2W Qty: 2 5RF escitalopram oxalate 20 mg tablet 20 mg PO DAILY amoxicillin-pot clavulanate 875-125 mg tablet 1 tab PO BID Qty: 20 0RF Digest Adv Probio Plus Gas 2 billion cell capsule PO tolterodine 2 mg capsule,extended release 24hr 4 mg PO DAILY 90 Days Qty: 180 2RF Referrals: [facility] [Provider Group] Stand Alone Forms: Work/School Release Print Language: Icelandic
[2023-09-06] MEDS: Ketorolac Tromethamine 15 MG/ML VIAL IVPUSH (10:10)
[2023-09-06] MEDS: 0.9 % Sodium Chloride 1,000 ML 999 ML IV (10:10)
[2023-09-06 10:20] VITALS: BP 116/76; PULSE 70; RESP 18; O2SAT 98
--- NOTE | 2023-09-06 10:23 | PC.NURSE ---
pt is alert and oriented, skin pwd, respirations even and unlabored, pt reports left lower abd pain that radiates to the flank, denies nausea and diarrhea, pt states she has hx of diverticulitis, vs stable
[2023-09-06 12:55] LABS: Alanine Aminotransferase 10 U/L (0-31); Albumin Level 3.9 g/dL (3.5-5.0); Alkaline Phosphatase 103 U/L (39-117); Anion Gap 14 (12-20); Aspartate Amino Transferase 20 U/L (5-31); Bilirubin Total 0.7 mg/dL (0.0-1.0); Blood Urea Nitrogen 13 mg/dL (9-16); Calcium 9.8 mg/dL (8.4-10.2); Carbon Dioxide 27 mmol/L (22-29); Chloride 103 mmol/L (96-108); Creatinine Clr Calc Pharmacy 62.2; Estimated Glomerular Filt Rate > 60; Glucose Random 92 mg/dL (60-115); Potassium 4.9 mmol/L (3.3-5.1); Sodium 139 mmol/L (135-145); Total Protein 7.5 g/dL (6.5-8.0)
[2023-09-06 13:27] VITALS: BP 122/60; PULSE 63; RESP 18; TEMP 36.6; O2SAT 97
[2023-09-06 14:40] VITALS: BP 109/76; PULSE 70; RESP 18; TEMP 36.6; O2SAT 97
== END 2023-09-06 14:41 | disposition home or self-care (01) ==
PROVIDERS: Emergency Provider Student in an Organized Health Care Education/Training Program; PCP Internal Medicine
DX: K57.32 Diverticulitis of large intestine without perforation or abscess without bleeding (principal); R10.30 Lower abdominal pain, unspecified; Z79.899 Other long term (current) drug therapy
CPT/HCPCS: 36415; 74176; 80053; 81001; 85025; 96361; 96374; 99284; 99285; J1885

== ENCOUNTER 2023-11-16 15:41 | Outpatient (AMB) | payer OTHER, SELFPAY ==
--- NOTE | 2023-11-16 15:45 | MHC.OFFVIS ---
Vital Signs 11/16/23 15:56 Height 5 ft 1 in Weight 142 lb 13.753 oz BMI 27.0 BP 126/60 Blood Pressure Location Rt brachial Position Sitting Pulse 86 Pulse Source Pulse Oximeter Pulse Oximetry (%) 94 Oxygen Delivery Method Room Air Intake Visit Reasons: Diverticulitis Intake Note: Monica presents in office today for an initial office visit. CC; Pt reports onset approximately 4 years ago. Pt has had multiple episodes since then. Pt reports most recent episode was approximately 1 mos ago. Pt was seen at [facility]. Pt reports hx of seeing gastro at [place] for cc of constipation, GERD, abdominal pain, etc. Pt was referred here following their recent ED admission. 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 Pt would like to have colo/egd as to hopefully avoid any surgical procedures in the future (resectioning). \ Poultry Killer Required: No Allergies midazolam [From Versed] Adverse Reaction (Intermediate, Verified 11/25/23 08:09) Rash morphine Adverse Reaction (Intermediate, Verified 11/25/23 08:09) Unknown Myrbetriq Adverse Reaction (Severe, Uncoded 09/05/23 11:30) hives HPI HPI Diverticulitis: Details: 58 years old female with past medical history of hyperlipidemia, diverticulitis is here today for initial consultation. Patient reports that she has been having multiple issues with her bowels for the past 4 years or so. Patient reports that previously she was seen at [facility] by Gastroenterology for symptoms of IBS, constipation and diarrhea. Back in August patient was seen in our ED for abdominal pain and discomfort. CT scan showed moderate sigmoid diverticulitis. Patient is an every day smoker. Currently patient has no pain. When in the ED lab work did not show any leukocytosis. Patient was sent home with Augmentin which patient completed food treatment. Patient is taking probiotics as well. She is trying to eat food that is high in fiber. Patient denies any melena, hematochezia. REPLACED BY [facility] Medical History Fibrocystic changes of right breast (~1989) Hyperlipidemia Surgical History History of tubal ligation History of appendectomy Family History Father History of quadruple bypass Multiple myeloma Diabetes Heart attack Brother Aortic valve replaced Social History Patient Tobacco Use Status: Current everyday Tobacco user Review of Systems Const Denies weight gain and Denies weight loss ENT Reports no additional complaints, Denies dysphagia and Denies odynophagia Card Reports no additional complaints Resp Reports no additional complaints GI Reports abdominal pain, Denies belching, Denies melena, Reports bloating, Reports constipation, Denies dysphagia, Denies excessive flatus, Denies dyspepsia, Denies heartburn, Denies diarrhea, Reports loose stools, Denies nausea, Denies odynophagia and Denies vomiting Reports no additional complaints Musc Reports no additional complaints Neuro Reports no additional complaints Psych Reports no additional complaints Endo Reports no additional complaints Physical Exam Vital Signs: Last Vital Signs Pulse 86 11/16/23 15:56 BP 126/60 11/16/23 15:56 Pulse Ox 94 11/16/23 15:56 Oxygen Delivery Method Room Air 11/16/23 15:56 BMI result Body Mass Index 27.0 Const General: healthy appearing, no acute distress and well developed Nutritional Appearance: well nourished Orientation/consciousness: patient oriented x3 Resp Effort & Inspection: normal respiratory effort, able to speak in complete sentences, no tracheal deviation and symmetric chest movement Auscultation: clear to auscultation bilaterally Cardio Rate: regular rate GI Inspection: Yes normal to inspection and No distended Palpation (GI): Soft to palpation, not firm, nontender and No hepatosplenomegaly present Auscultation: normal bowel sounds General: Yes no CVA tenderness Back/Spine/Pelvis Back: no CVA tenderness Skin General skin exam: elasticity normal, turgor normal and dry skin Neuro General: patient oriented x3 Psych Appearance: grossly normal Mental Status: mental status grossly normal Assessment & Plan Assessment & Plan (1) Postprandial diarrhea: Code(s): K52.9 - Noninfective gastroenteritis and colitis, unspecified (2) Diverticulitis: Code(s): K57.92 - Diverticulitis of intestine, part unspecified, without perforation or abscess without bleeding Plan History of diverticulitis. Patient will need to go for colonoscopy. Currently patient was encouraged to increase fiber intake and list of food high in fiber given to patient. Patient can also take [id number] fiber supplement along with probiotics. Patient can take senna/docusate sodium combination to help her move her bowels better. Patient will return in 2 months we can discuss going for colonoscopy. Sooner on as needed basis. Please have patient get records from her previous GI visit from [place]. Record of her last colonoscopy. Patient is agreeable to current plan of care and verbalizes understanding of instructions. She was given the opportunity to ask questions and all questions answered. Thank you for allowing me to participate in her care Medications: New psyllium husk 1.04 grams (2 x 0.52 gram) PO DAILY 180 caps 4RF K59.00 - Constipation, unspecified sennosides-docusate sodium 8.6-50 mg (Senna with Docusate Sodium) 2 tab-caps (2 x 8.6-50 mg) PO BEDTIME 180 tabs 0RF Coding Level of Care Code New Pt Level 4 (75138) Diagnoses Postprandial diarrhea K52.9 Diverticulitis K57.92 Time Spent (min) 45 Comment 30 minutes spent with patient and additional 15 minutes spent reviewing her records
[2023-11-16 15:56] VITALS: BP 126/60; PULSE 86; O2SAT 94; BMI 27.0
== END 2023-11-17 15:18 | disposition home or self-care (01) ==
PROVIDERS: PCP Internal Medicine; Visit Provider Nurse Practitioner Family
DX: K52.9 Noninfective gastroenteritis and colitis, unspecified (principal); K57.92 Diverticulitis of intestine, part unspecified, without perforation or abscess without bleeding
CPT/HCPCS: 99204

== ENCOUNTER → 2023-11-16 15:41 | Outpatient (BNVA) | payer OTHER, SELFPAY | PROVIDERS: PCP Internal Medicine; Visit Provider Nurse Practitioner Family ==

== ENCOUNTER 2023-11-25 08:04 | Outpatient (AMB) | payer OTHER, SELFPAY ==
[2023-11-25 08:08] VITALS: BP 120/60; PULSE 76; TEMP 37.2; O2SAT 98; BMI 26.8
--- NOTE | 2023-11-25 08:08 | AM.OFFWIN_ITS ---
Intake Vital Signs 11/25/23 08:08 Height 5 ft 1 in Weight 142 lb BMI 26.8 BP 120/60 Blood Pressure Location Lt brachial Position Sitting Pulse 76 Pulse Source Pulse Oximeter Temp 99.0 F Temp Source Oral Pulse Oximetry (%) 98 Intake Visit Reasons: EP headache joint pain fatigue Intake Note: pt is here for headache, joint pain with fatigue Patient Tobacco Use Status: Current everyday Tobacco user Allergies midazolam [From Versed] Adverse Reaction (Intermediate, Verified 11/25/23 08:09) Rash morphine Adverse Reaction (Intermediate, Verified 11/25/23 08:09) Unknown Myrbetriq Adverse Reaction (Severe, Uncoded 09/05/23 11:30) hives Do you need a note to return to daycare/school/sports/work: No HPI HPI Comments History of Present Illness Details 58-year-old female presents today compla ining of headache, fatigue, myalgias of her left upper extremity interscapular region also complains of sinus pain and pressure for 2 weeks. Denies any fever chills chest pain cough. She denies any rashes that she noticed in the past. [facility] Medical History Fibrocystic changes of right breast (~1989) Hyperlipidemia Surgical History History of tubal ligation History of appendectomy Family History Father History of quadruple bypass Multiple myeloma Diabetes Heart attack Brother Aortic valve replaced Social History Patient Tobacco Use Status: Current everyday Tobacco user Review of Systems Const All systems reviewed & are unremarkable except as noted in HPI and below Eyes Reports no additional complaints ENT Reports sinus pain and Reports sinus pressure Card Reports no additional complaints Resp Reports no additional complaints GI Reports no additional complaints Reports no additional complaints Musc Reports myalgias Skin/Breast Reports system reviewed and no additional complaints, except as documented Physical Exam Vital Signs: Last Vital Signs Temp 99.0 F 11/25/23 08:08 Pulse 76 11/25/23 08:08 BP 120/60 11/25/23 08:08 Pulse Ox 98 11/25/23 08:08 BMI result Body Mass Index 26.8 Const General: no acute distress, acute distress mild and tired appearing HEENT Head: Yes normal to inspection, Yes normocephalic and Yes atraumatic Ears: hearing grossly normal bilaterally Face and sinus: Yes normal facial exam Throat: Yes postnasal drainage Resp Effort & Inspection: normal respiratory effort Auscultation: clear to auscultation bilaterally Cardio Rate: regular rate Rhythm: regular rhythm Heart sounds: S1 normal heart sound present and S2 normal heart sound present Extrem Left upper extremity: normal to inspection, shoulder/upper arm Details: tenderness and hand Details: warmth and swelling Assessment & Plan Assessment & Plan (1) Joint pain: Code(s): M25.50 - Pain in unspecified joint Plan: The fatigue and myalgias Lilian suspect potential Lyme. She does do outdoor activities and has a dog. A Lyme titer was ordered with CBCs CMP. (2) Sinusitis: Code(s): J32.9 - Chronic sinusitis, unspecified Plan: Due to her complaints of fatigue and ethmoid sinus pain I put her on doxycycline for 7 days. We will await lab work and result of Lyme Plan See plan Orders: Orders Lyme IgG/IgM w/reflex to WB Today M25.50 - Pain in unspecified joint Complete Blood Count Auto Diff Today M25.50 - Pain in unspecified joint Comprehensive Met. Panel Today M25.50 - Pain in unspecified joint Medications: New doxycycline hyclate 100 mg PO BID 7 days 14 caps 0RF Coding Level of Care Code Est Pt Level 3 (83362) Diagnoses Joint pain M25.50 Sinusitis J32.9
== END 2023-11-25 08:39 | disposition home or self-care (01) ==
PROVIDERS: PCP Internal Medicine; Visit Provider Physician Assistant Medical
DX: M25.50 Pain in unspecified joint (principal); J32.9 Chronic sinusitis, unspecified
CPT/HCPCS: 99213

== ENCOUNTER 2023-11-25 09:01 | Outpatient (REF) | payer OTHER, SELFPAY ==
[2023-11-25 09:09] LABS: MANUAL DIFF FLAG NO
[2023-11-25 09:11] LABS: Basophils Percent Auto 0.5 % (0-2); Eosinophils Absolute Auto 0.1 X10*3/uL (0.0-0.4); Eosinophils Percent Auto 0.8 % (0-4); Hemoglobin 13.4 g/dl (12.0-16.0); Imm Gran Abs Auto 0.02 X10*3/uL (0.00-0.03); Imm Gran Pct Auto 0.3 % (0.0-0.4); Lymphocytes Absolute Auto 1.9 X10*3/uL (1.2-4.9); Lymphocytes Percent Auto 25.1 % (20-40); Mean Corpuscular HGB Conc 34.4 g/dl (31.0-35.0); Mean Corpuscular Hemoglobin 31.9 pg (27.0-33.0); Mean Corpuscular Volume 92.9 fL (80.0-98.0); Mean Platelet Volume 8.7 fL (9.4-12.3); Monocytes Absolute Auto 0.8 X10*3/uL (0.1-1.2); Monocytes Percent Auto 9.9 % (2-11); Neutrophils Absolute Auto 4.8 x10*3/uL (2.0-8.3); Neutrophils Percent Auto 63.4 % (45-73); Platelet Count 244 X10*3/uL (160-400); White Blood Count 7.6 X10*3/uL (4.8-10.8)
[2023-11-25 09:26] LABS: Alanine Aminotransferase 12 U/L (0-31); Albumin Level 4.1 g/dL (3.5-5.0); Alkaline Phosphatase 94 U/L (39-117); Anion Gap 12 (12-20); Aspartate Amino Transferase 23 U/L (5-31); Bilirubin Total 0.4 mg/dL (0.0-1.0); Blood Urea Nitrogen 17 mg/dL (9-16); Calcium 9.7 mg/dL (8.4-10.2); Carbon Dioxide 29 mmol/L (22-29); Chloride 105 mmol/L (96-108); Estimated Glomerular Filt Rate > 60; Glucose Random 103 mg/dL (60-115); Potassium 4.1 mmol/L (3.3-5.1); Sodium 142 mmol/L (135-145); Total Protein 7.3 g/dL (6.5-8.0)
[2023-11-27 02:54] LABS: Lyme Abs Screen <0.90 index
== END 2023-11-25 09:02 | disposition home or self-care (01) ==
LOC: HO.LAB 09:01
PROVIDERS: Absent Provider Internal Medicine; PCP Internal Medicine; Visit Provider Physician Assistant Medical
DX: M25.50 Pain in unspecified joint (principal)
CPT/HCPCS: 36415; 80053; 85025; 86617; 86618

== ENCOUNTER 2023-12-28 16:28 | Outpatient (REF) | payer OTHER, SELFPAY ==
[2023-12-28 16:40] LABS: MANUAL DIFF FLAG NO
[2023-12-28 17:12] LABS: Basophils Percent Auto 0.5 % (0-2); Eosinophils Absolute Auto 0.1 X10*3/uL (0.0-0.4); Eosinophils Percent Auto 0.8 % (0-4); Hemoglobin 13.9 g/dl (12.0-16.0); Imm Gran Abs Auto 0.05 X10*3/uL (0.00-0.03); Imm Gran Pct Auto 0.6 % (0.0-0.4); Lymphocytes Percent Auto 23.8 % (20-40); Mean Corpuscular HGB Conc 33.1 g/dl (31.0-35.0); Mean Corpuscular Hemoglobin 31.2 pg (27.0-33.0); Mean Corpuscular Volume 94.4 fL (80.0-98.0); Mean Platelet Volume 9.2 fL (9.4-12.3); Monocytes Absolute Auto 0.9 X10*3/uL (0.1-1.2); Neutrophils Absolute Auto 5.4 x10*3/uL (2.0-8.3); Neutrophils Percent Auto 64.3 % (45-73); Platelet Count 278 X10*3/uL (160-400); Red Blood Count 4.45 X10*6/uL (4.20-5.50); White Blood Count 8.5 X10*3/uL (4.8-10.8)
[2023-12-28 18:50] LABS: C Reactive Protein 0.36 mg/dL (< or = 0.50)
[2023-12-28 19:06] LABS: Free T4 (Free Thyroxine) 0.96 ng/dL (0.71-1.85); Thyroid Stimulating Hormone 0.91 uIU/mL (0.32-4.0)
[2023-12-28 20:14] LABS: Folate 9.7 ng/mL (> or = 4.0); Vitamin B12 373 pg/mL (200-900)
== END 2023-12-28 16:29 | disposition home or self-care (01) ==
LOC: HO.LAB 16:28
PROVIDERS: PCP Internal Medicine; Visit Provider Internal Medicine
DX: E78.5 Hyperlipidemia, unspecified (principal); R53.83 Other fatigue; K58.9 Irritable bowel syndrome, unspecified; E53.8 Deficiency of other specified B group vitamins
CPT/HCPCS: 36415; 82607; 82746; 84439; 84443; 85025; 86140

== ENCOUNTER 2024-02-04 06:55 | Outpatient (REF) | payer OTHER, SELFPAY ==
[2024-02-04 07:53] LABS: Cholesterol 177 mg/dL (<200); HDL Cholesterol 69 mg/dL (>40); LDL Cholesterol Calculated 93 mg/dL (<100); Triglycerides 79 mg/dL (<150)
== END 2024-02-04 06:56 | disposition home or self-care (01) ==
LOC: HO.LAB 06:55
PROVIDERS: Visit Provider Internal Medicine
DX: E78.5 Hyperlipidemia, unspecified (principal); I99.8 Other disorder of circulatory system; Z82.49 Family history of ischemic heart disease and other diseases of the circulatory system
CPT/HCPCS: 36415; 80061

== ENCOUNTER 2024-04-01 15:18 | Outpatient (AMB) | payer OTHER, SELFPAY ==
--- NOTE | 2024-04-01 15:24 | MHC.OFFVIS ---
Vital Signs 04/01/24 15:25 Height 5 ft 1 in Weight 146 lb 13.246 oz BMI 27.7 BP 118/80 Blood Pressure Location Rt brachial Position Sitting Pulse 78 Pulse Source Pulse Oximeter Pulse Oximetry (%) 96 Oxygen Delivery Method Room Air Intake Visit Reasons: 2 months follow up Intake Note: PRESCRIPTIONS LAST GENERATED sennosides 8.6 mg-docusate sodium 50 mg tablet?(Senna with Docusate Sodium)?2 tab-caps (2 x 8.6-50 mg) PO BEDTIME 180 tabs 0RF Adilene,Jeaneth D 11/16/23 16:12 (Transmitted) psyllium husk 0.52 gram capsule?1.04 grams (2 x 0.52 gram) PO DAILY 180 caps 4RF Adilene,Jeaneth D 11/16/23 16:12 (Transmitted) Pt is no longer taking these medications because they were not helping and only caused excessive gas and bloating. Relevant Flags or Indicators ? Requires Electrician Yard? Fuad Anderson presents in office today for a scheduled ~ 4 mos FUV CC; No recent labs, diagnostics. Pt has had multiple labs from other specialties. ? Relevant GI Sx as reported per pt? Fatigue/Malaise. Bloating and excessive gas Abdominal distention. ? Hx of any recent surgeries? None Electrician Yard Required: No Allergies mirabegron [From Myrbetriq] Allergy (Intermediate, Verified 04/01/24 15:31) Hives midazolam [From Versed] Adverse Reaction (Intermediate, Verified 04/01/24 15:31) Rash morphine Adverse Reaction (Intermediate, Verified 04/01/24 15:31) Unknown HPI HPI 2 months follow up : Details: LAST VISIT: Postprandial diarrhea Diverticulitis Plan History of diverticulitis. Patient will need to go for colonoscopy. Currently patient was encouraged to increase fiber intake and list of food high in fiber given to patient. Patient can also take [id number] fiber supplement along with probiotics. Patient can take senna/docusate sodium combination to help her move her bowels better. Patient will return in 2 months we can discuss going for colonoscopy. Sooner on as needed basis. Please have patient get records from her previous GI visit from [facility]. Record of her last colonoscopy. Patient is agreeable to current plan of care and verbalizes understanding of instructions. She was given the opportunity to ask questions and all questions answered. ? Thank you for allowing me to participate in her care Medications New psyllium husk 1.04 grams (2 x 0.52 gram) PO DAILY 180 caps 4RF K59.00 sennosides-docusate sodium 8.6-50 mg (Senna with Docusate Sodium) 2 tab-caps (2 x 8.6-50 mg) PO BEDTIME 180 tabs 0RF TODAY'S VISIT Patient is here today for follow-up. Patient is aware that she needs to go for colonoscopy, however she is experiencing increased shortness of breath and fatigue. Last visit with her flavor room worker was in July of 2023, no follow-up since. Patient does admit that she continues to smoke cigarettes, has family history of CAD. Patient reports that she is moving her bowels better now, however occasionally she will still have abdominal bloating and postprandial loose stools. Patient denies any melena, hematochezia, unintentional weight loss or ribbon like stools. Patient reports occasional epigastric pain postprandially without dyspepsia, dysphagia or odynophagia. [facility] Medical History Fibrocystic changes of right breast (~1989) Hyperlipidemia Surgical History History of tubal ligation History of appendectomy Family History Father History of quadruple bypass Multiple myeloma Diabetes Heart attack Brother Aortic valve replaced Social History Patient Tobacco Use Status: Current everyday Tobacco user Review of Systems Const Denies weight gain and Denies weight loss ENT Reports no additional complaints, Denies dysphagia and Denies odynophagia Card Reports no additional complaints Resp Reports no additional complaints GI Denies abdominal pain, Denies belching, Denies melena, Denies bloating, Denies change in bowel habits, Denies dysphagia, Denies excessive flatus, Denies dyspepsia, Denies heartburn, Denies diarrhea, Denies loose stools, Denies nausea, Denies odynophagia and Denies vomiting Musc Reports no additional complaints Neuro Reports no additional complaints Psych Reports no additional complaints Endo Reports no additional complaints Physical Exam Vital Signs: Last Vital Signs Pulse 78 04/01/24 15:25 BP 118/80 04/01/24 15:25 Pulse Ox 96 04/01/24 15:25 Oxygen Delivery Method Room Air 04/01/24 15:25 BMI result Body Mass Index 27.7 Const General: healthy appearing, no acute distress and well developed Nutritional Appearance: well nourished Orientation/consciousness: patient oriented x3 Resp Effort & Inspection: normal respiratory effort, able to speak in complete sentences, no tracheal deviation and symmetric chest movement Auscultation: clear to auscultation bilaterally Cardio Rate: regular rate GI Inspection: Yes normal to inspection and No distended Palpation (GI): Soft to palpation, not firm, nontender and No hepatosplenomegaly present Auscultation: normal bowel sounds General: Yes no CVA tenderness Back/Spine/Pelvis Back: no CVA tenderness Skin General skin exam: elasticity normal, turgor normal and dry skin Neuro General: patient oriented x3 Psych Appearance: grossly normal Mental Status: mental status grossly normal Assessment & Plan Assessment & Plan (1) Postprandial diarrhea: Code(s): K52.9 - Noninfective gastroenteritis and colitis, unspecified (2) Diverticulitis: Code(s): K57.92 - Diverticulitis of intestine, part unspecified, without perforation or abscess without bleeding (3) Postprandial abdominal bloating: Code(s): R14.0 - Abdominal distension (gaseous) Plan Patient will continue high-fiber diet. Increase fluid intake and activity to promote better bowel motility. Message sent to assistant manager of operations of the Cardiology Department to book appointment for patient so she can before sending her for colonoscopy. Patient denies any melena, hematochezia, unintentional weight loss or ribbon like stools. Patient denies any dyspepsia, dysphagia or odynophagia. Patient will return to the office in 4 months, sooner on as needed basis. She is agreeable to this plan and verbalizes understanding of instructions. She was given the opportunity to ask questions and all questions answered. Thank you for allowing me to participate in her care Coding Level of Care Code Est Pt Level 3 (84778) Diagnoses Postprandial diarrhea K52.9 Diverticulitis K57.92 Postprandial abdominal bloating R14.0 Time Spent (min) 30 Comment 20 minutes spent with patient and additional 10 minutes spent reviewing her records
[2024-04-01 15:25] VITALS: BP 118/80; PULSE 78; O2SAT 96; BMI 27.7
== END 2024-04-01 16:02 | disposition home or self-care (01) ==
LOC: HO.HGI 15:18
PROVIDERS: PCP Internal Medicine; Visit Provider Nurse Practitioner Family
DX: K52.9 Noninfective gastroenteritis and colitis, unspecified (principal); K57.92 Diverticulitis of intestine, part unspecified, without perforation or abscess without bleeding; R14.0 Abdominal distension (gaseous)
CPT/HCPCS: 99213

== ENCOUNTER → 2024-04-01 15:18 | Outpatient (BNVA) | payer OTHER, SELFPAY | PROVIDERS: PCP Internal Medicine; Visit Provider Nurse Practitioner Family ==

== ENCOUNTER 2024-05-03 15:40 | Outpatient (AMB) | payer OTHER, SELFPAY ==
--- NOTE | 2024-05-03 15:56 | MHC.OFFVIS ---
Intake Visit Reasons: 6M follow up PVR r/s Intake Note: Patient presents today for follow up visit for Urinary Incontinence Urology Medications: tolterodine Blood Thinner: none PVR: 0 ml's Accounting File Clerk Required: No Accompanied by: Self / Same As Patient Allergies mirabegron [From Myrbetriq] Allergy (Intermediate, Verified 05/03/24 16:25) Hives midazolam [From Versed] Adverse Reaction (Intermediate, Verified 05/03/24 16:25) Rash morphine Adverse Reaction (Intermediate, Verified 05/03/24 16:25) Unknown Medication List - Last Reconciled 05/03/24 by ROSELINE Cary-TRES B.coagulans-digestive enzym 10 2 billion cell (Digestive Advantage Probiotics Plus Gas) caps PO escitalopram oxalate 20 mg PO DAILY evolocumab (Repatha SureClick) 140 mg subcut Q2W tolterodine ER 4 mg (2 x 2 mg) PO DAILY 90 days HPI Comments Details: Monica is a very pleasant 59-year-old female patient of Dr. Obregon. She has a past medical history of hyperlipidemia and nicotine dependence. She presents to the office today for follow-up of her mixed urinary incontinence. In discussion with the patient today she reports to be doing and feeling well. She reports significant improvement in mixed urinary incontinent episodes she had been experiencing with tolterodine. Previous workup has included a retroperitoneal ultrasound 08/22 noting bilateral kidneys with no calculi, lesions, and or hydronephrosis. The bladder is distended and normal. Bilateral ureteral jets are demonstrated. Pre void bladder volume is approximately 185 mL. Postvoid bladder volume is approximately 10 mL. Unremarkable renal ultrasound. She has history of 2 vaginal births, average size babies, and labors to be somewhat short. She otherwise denies nocturia, hematuria, dysuria, foul smelling urine, changes to urinary stream, flank pain, fever, and or chills. Discussed at length potential causes for mixed urinary incontinence. Discussed further treatment options with pelvic floor therapy, in office urodynamics and or cystoscopy for further assessment evaluation. In office urinalysis results reviewed with the patient today. PVR 0 mL. She had been utilizing 3-6 Nguyen pads per day however is down to 1 peripad. She otherwise offers no other issues or concerns at this time. [facility] Medical History Fibrocystic changes of right breast (~1989) Hyperlipidemia Surgical History History of tubal ligation History of appendectomy Family History Father History of quadruple bypass Multiple myeloma Diabetes Heart attack Brother Aortic valve replaced Social History Patient Tobacco Use Status: Current everyday Tobacco user Review of Systems Const All systems reviewed & are unremarkable except as noted in HPI and below Denies weight gain and Denies weight loss ENT Reports no additional complaints, Denies dysphagia and Denies odynophagia Card Reports no additional complaints Resp Reports no additional complaints GI Denies abdominal pain, Denies belching, Denies melena, Denies bloating, Denies change in bowel habits, Denies dysphagia, Denies excessive flatus, Denies dyspepsia, Denies heartburn, Denies diarrhea, Denies loose stools, Denies nausea, Denies odynophagia and Denies vomiting Musc Reports no additional complaints Neuro Reports no additional complaints Psych Reports no additional complaints Endo Reports no additional complaints Physical Exam Const General: cooperative, healthy appearing, comfortable, no acute distress, well developed, alert and awake Orientation/consciousness: patient oriented x3 Limitations: no limitations HEENT Head: Yes normal to inspection, Yes normocephalic and Yes atraumatic Ears: hearing grossly normal bilaterally Eyes General: appearance normal, both eyes and all related structures Neck Neck: Yes normal visual inspection and Yes trachea midline Chest Chest palpation & inspection: normal inspection of the chest Resp Effort & Inspection: normal respiratory effort and able to speak in complete sentences Cardio Rate: regular rate GI Inspection: Yes normal to inspection General: Yes no CVA tenderness Back/Spine/Pelvis Back: no CVA tenderness Skin General skin exam: no rashes or lesions noted Neuro General: patient oriented x3 Extrem General: Yes normal to inspection Psych Appearance: grossly normal and well kempt Mental Status: mental status grossly normal Speech and movement: Normal speech and movement present and Clear speech present Affect: normal affect Attitude: cooperative Thought process: Normal thought process present Thought content: Normal thought content present Insight: Fair insight present (Psych) Judgement: Fair judgement present (Psych) Office Procedures Post Void Residual Post Residual Void Post Void Residual (PVR): 0 [id number]-[id number] Void Residual by ultrasound Results AMB Urinalysis, Automated UA Leukoctes 70 Gus/uL Last Edit by Digiumluis manuel on 05/03/24 16:14 UA Nitrite Last Edit by [employer] on 05/03/24 16:14 UA Urobilinogen 0.2 mg/dL Last Edit by [employer] on 05/03/24 16:14 UA Protein 0 mg/dL Last Edit by [employer] on 05/03/24 16:14 UA pH 6.0 Last Edit by [employer] on 05/03/24 16:14 UA Blood 25 Deep/uL Last Edit by [employer] on 05/03/24 16:14 UA Specific [place] 1.030 Last Edit by [employer] on 05/03/24 16:14 UA Ketone Last Edit by [employer] on 05/03/24 16:14 UA Bilirubin 0 mg/dL Last Edit by [employer] on 05/03/24 16:14 UA Glucose 0 mg/dL Last Edit by [employer] on 05/03/24 16:14 Results Reviewed Results Reviewed: Laboratory Last Values Urine pH (Auto) 6.0 05/03/24 16:12 Specific [place] (Auto) 1.030 05/03/24 16:12 Urine Protein (Auto) 0 mg/dL 05/03/24 16:12 Glucose (UA)(Auto) 0 mg/dL 05/03/24 16:12 Urine Blood (Auto) 25 Deep/uL 05/03/24 16:12 Urine Bilirubin (Auto) 0 mg/dL 05/03/24 16:12 Urine Urobilinogen (Auto) 0.2 mg/dL 05/03/24 16:12 Leukocyte Esterase (Auto) 70 Gus/uL 05/03/24 16:12 Assessment & Plan Assessment & Plan (1) Mixed stress and urge urinary incontinence: Code(s): N39.46 - Mixed incontinence Category: Medical Plan In office urinalysis results reviewed with the patient today; as noted above. PVR 0 mL. Patient reports significant improvement in mixed urinary incontinence with tolterodine; will continue. Discussed at length importance of limiting/quitting nicotine dependence for improvement in lower urinary tract symptoms as well as overall health and well-being. Discussed bladder triggers/irritants. Follow-up with pelvic floor therapy for further assessment evaluation; referral submitted at last office visit will resend. Follow-up in 6 months with PVR; or sooner with any issues, concerns, and or questions. Orders: Orders AMB Urinalysis Automated Today Z13.9 - Encounter for screening, unspecified AMB Post Void Residual by ultrasound Today N39.46 - Mixed incontinence PT Evaluation and Treatment Today N39.46 - Mixed incontinence Patient Instructions: The patient had an opportunity to ask questions regarding the treatment plan. All questions were answered. Physical exam, labs, and imaging were discussed and reviewed in detail. As well as risks, benefits, and discussion of treatment choices. No major barriers to understanding were identified. The patient expressed understanding and agreement with the above treatment plan. The patient was made aware they should contact our office by phone for worsening of their current condition, the appearance of new symptoms, or with any questions or concerns. Compliance is encouraged with any medications and follow up testing that is ordered. It is a privilege to be allowed the opportunity to participate in? your urological care.? Again, if you have any questions or concerns If you have any questions or concerns please do not hesitate to contact me. The office is [phone]. This note is constructed using voice recognition software. While every effort has been made to ensure accuracy clay maker errors may have been included. Yours sincerely, ANUJ Cary Coding Level of Care Code Est Pt Level 3 (24849) Complex EM visit Add On G2211 Diagnoses Mixed stress and urge urinary incontinence N39.46 CPT Codes Post Residual Void - PVR CPT Code: 35370-Dsqd Void Residual by ultrasound ([id number])
== END 2024-05-03 16:30 | disposition home or self-care (01) ==
PROVIDERS: PCP Internal Medicine; Visit Provider Nurse Practitioner Family
DX: Z13.9 Encounter for screening, unspecified (principal); N39.46 Mixed incontinence
CPT/HCPCS: 99213

== ENCOUNTER → 2024-05-03 15:40 | Outpatient (BNVA) | payer OTHER, SELFPAY | PROVIDERS: PCP Internal Medicine; Visit Provider Nurse Practitioner Family | DX: N39.46 Mixed incontinence (principal) | CPT/HCPCS: 51798; 81003 ==

== ENCOUNTER 2024-05-11 08:15 | Outpatient (REF) | payer OTHER, SELFPAY ==
[2024-05-11 11:28] LABS: Influenza A PCR NEGATIVE (Negative); Influenza B PCR NEGATIVE (Negative); Resp Syncy Virus RNA Qual PCR NEGATIVE (Negative); SARS COV2 PCR INHOUSE POSITIVE (Negative)
== END 2024-05-11 08:16 | disposition home or self-care (01) ==
LOC: HO.LAB 08:15
PROVIDERS: Registered Nurse; PCP Internal Medicine
DX: J06.9 Acute upper respiratory infection, unspecified (principal)
CPT/HCPCS: 0241U

== ENCOUNTER 2024-05-11 08:15 | Outpatient (AMB) | payer OTHER, SELFPAY ==
[2024-05-11 08:59] VITALS: BP 142/90; PULSE 101; TEMP 37.7; O2SAT 94; BMI 27.9
--- NOTE | 2024-05-11 08:59 | AM.OFFWIN_ITS ---
Intake Vital Signs 05/11/24 08:59 Height 5 ft 1 in Weight 147 lb 8 oz BMI 27.9 BP 142/90 H Blood Pressure Location Lt brachial Position Sitting Pulse 101 H Pulse Source Pulse Oximeter Temp 99.8 F Temp Source Temporal Artery Scan Pulse Oximetry (%) 94 Oxygen Delivery Method Room Air Intake Visit Reasons: EP chills, fever, aches, sore throat, congestion Intake Note: Pt presents to the office today for c/o fever, body aches, chills, cough, congestion,headache x2 days. Pt states she was with her brother 3-4 days ago when he was diagnosed with COVID Patient Tobacco Use Status: Current everyday Tobacco user Allergies mirabegron [From Myrbetriq] Allergy (Intermediate, Verified 05/11/24 09:01) Hives midazolam [From Versed] Adverse Reaction (Intermediate, Verified 05/11/24 09:01) Rash morphine Adverse Reaction (Intermediate, Verified 05/11/24 09:01) Unknown HPI EP chills, fever, aches, sore throat, congestion HPI Details This note is constructed using voice recognition software. While every effort has been made to ensure accuracy, lead technician errors may have been included. The patient is a 59 year old female who presents to the clinic today with chills, fever, body aches, congestion, and exposure to COVID 2 days ago. She has not yet taken anything, and has mostly been trying to hydrate and rest. [facility] Medical History Fibrocystic changes of right breast (~1989) Hyperlipidemia Surgical History History of tubal ligation History of appendectomy Family History Father History of quadruple bypass Multiple myeloma Diabetes Heart attack Brother Aortic valve replaced Social History Patient Tobacco Use Status: Current everyday Tobacco user Review of Systems Const All systems reviewed & are unremarkable except as noted in HPI and below Physical Exam Vital Signs: Last Vital Signs Temp 99.8 F 05/11/24 08:59 Pulse 101 H 12/11/24 08:59 BP 142/90 H 12/11/24 08:59 Pulse Ox 94 05/11/24 08:59 Oxygen Delivery Method Room Air 05/11/24 08:59 BMI result Body Mass Index 27.9 Const General: cooperative, comfortable, no acute distress and ill appearing Orientation/consciousness: patient oriented x3 Limitations: no limitations HEENT Head: Yes normal to inspection Ears: hearing grossly normal bilaterally, external ears normal and TM's normal bilaterally General nose exam: Normal external nose present, Normal nares present and No nasal discharge present Face and sinus: Yes normal facial exam and Yes sinuses nontender Mouth: Normal oral and palatal mucosa present and moist mucous membranes Throat: Yes tonsils normal, Yes uvula midline and Yes posterior oropharynx abnormal (Erythema) Eyes General: appearance normal, both eyes and all related structures Neck Neck: Yes normal visual inspection Resp Effort & Inspection: normal respiratory effort, able to speak in complete sentences, Actively coughing, no respiratory distress, not tachypneic, no tripod positioning and no use of accessory muscles Auscultation: clear to auscultation bilaterally Cardio Jugular venous distension: no JVD Rate: regular rate Rhythm: regular rhythm Heart sounds: S1 normal heart sound present, S2 normal heart sound present, no click, no gallops, no murmurs and no rubs Skin General skin exam: no rashes or lesions noted, elasticity normal and turgor normal Neuro General: patient oriented x3 Extrem General: Yes normal to inspection and Yes no clubbing, cyanosis or edema Assessment & Plan Assessment & Plan (1) URI (upper respiratory infection): Code(s): J06.9 - Acute upper respiratory infection, unspecified Qualifiers: URI type: unspecified URI Qualified Code(s): J06.9 - Acute upper re spiratory infection, unspecified Plan: Viral swab obtained to rule out Covid, Influenza, and RSV based on symptoms. Advised mask wearing while symptomatic and quarantine per current CDC guidelines. Reviewed at home support methods including hydration, humidification, vix vapor rub, sinus rinse, and otc treatment options. Discussed treatment with antiviral therapy for covid with paxlovid and with Tamiflu for influenza, including appropriate use and side effects, and need to start medication within 5 day of symptom onset, preferably within 48 hours of symptom onset. Patient wishes to decline paxlovid for covid, but agree to tamiflu for influenza. Advised follow up with worsening symptoms such as dyspnea at rest, which would require emergent evaluation. Letter provided to remain out of work for the next few days for rest and recovery. Plan See above for full details and plan. Orders: Orders SARS-CoV2/FLU/RSV Today J06.9 - Acute upper respiratory infection, unspecified Coding Level of Care Code Est Pt Level 3 (77555) Diagnoses Upper respiratory tract infection, unspecified type J06.9 URI type: unspecified URI
== END 2024-05-11 09:34 | disposition home or self-care (01) ==
PROVIDERS: PCP Internal Medicine; Visit Provider Registered Nurse
DX: J06.9 Acute upper respiratory infection, unspecified (principal)

== ENCOUNTER 2024-06-07 14:08 | Outpatient (REF) | payer OTHER, SELFPAY ==
--- NOTE | ~2024-06-07 | MM_ITS ---
EXAMINATION: MM SCREENING DIGITAL BREAST TOMOSYNTHESIS, BILATERAL CLINICAL INFORMATION: Screening. Asymptomatic. COMPARISON: Mammography: Comparison is made with available priors TECHNIQUE: Digital breast mammography with tomosynthesis is performed in both the craniocaudal and mediolateral oblique views along with computer-aided detection (CAD). FINDINGS: The breasts are heterogeneously dense, which may obscure small masses (ACR BI-RADS breast composition Category c). There are no significant masses, abnormal calcifications, or other abnormalities. MM/MM tomosynthesis screening BI IMPRESSION: No mammographic evidence of malignancy. ASSESSMENT: BI-RADS BI-RADS 1 - Negative RECOMMENDATION: Routine annual mammography screening. 1 year F/U This examination should not preclude the clinical evaluation of a suspicious palpable abnormality. This patient's information was entered into a reminder system with a target due date for their next mammogram. Electronically signed by: Keely Galo DO 06/13/2024 05:[address]
== END 2024-06-07 14:09 | disposition home or self-care (01) ==
LOC: HO.MAMMO 14:08
PROVIDERS: PCP Internal Medicine; Visit Provider Internal Medicine
DX: Z12.31 Encounter for screening mammogram for malignant neoplasm of breast (principal)
CPT/HCPCS: 77063; 77067

== ENCOUNTER → 2024-06-07 14:30 | Outpatient (BNV) | payer OTHER, SELFPAY | PROVIDERS: PCP Internal Medicine; Visit Provider Internal Medicine | DX: Z12.31 Encounter for screening mammogram for malignant neoplasm of breast (principal) | CPT/HCPCS: 77063; 77067 ==

== ENCOUNTER 2024-06-15 11:02 | Outpatient (AMB) | payer OTHER, SELFPAY ==
--- NOTE | 2024-06-15 11:12 | MHC.OFFVIS ---
Vital Signs 06/15/24 11:15 Height 5 ft 1 in Weight 147 lb 11.355 oz BMI 27.9 BP 118/64 Blood Pressure Location Lt brachial Position Sitting Pulse 75 Intake Visit Reasons: preop colonoscopy/ increased sob/fatiuge Hair Dresser Required: No Accompanied by: Self / Same As Patient Allergies mirabegron [From Myrbetriq] Allergy (Intermediate, Verified 05/11/24 09:01) Hives midazolam [From Versed] Adverse Reaction (Intermediate, Verified 05/11/24 09:01) Rash morphine Adverse Reaction (Intermediate, Verified 05/11/24 09:01) Unknown Medication List - Last Reconciled 06/15/24 by MD Jesus Mohr.coagulans-digestive enzym 10 2 billion cell (Digestive Advantage Probiotics Plus Gas) caps PO escitalopram oxalate 20 mg PO DAILY evolocumab (Repatha SureClick) 140 mg subcut Q2W tolterodine ER 4 mg (2 x 2 mg) PO DAILY 90 days HPI Comments Details: Monica returns for follow-up. In the past, she was seen regarding possible coronary disease. Currently, she also needs to go for colonoscopy and they are requesting or clearance. She has seen cardiology in the [place] area in the past but then moved to [facility]. There is family history of coronary disease and hence she underwent a calcium scoring CT scan in 2019 with a score of 0. Patient herself had some nonspecific tiredness extra and that led to further workup with the ETT/exercise stress echocardiogram/echocardiogram and overall these were all unremarkable. She is a chronic smoker and still smokes. History of statin intolerance and on Repatha. She gets some atypical chest pains but nonexertional. Not frequently though. Otherwise, fully functional with no limitations. 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 [facility] Medical History Fibrocystic changes of right breast (~1989) Hyperlipidemia Surgical History History of tubal ligation History of appendectomy Family History Father History of quadruple bypass Multiple myeloma Diabetes Heart attack Brother Aortic valve replaced Social History (Updated 06/15/24 @ 11:21 by Adri Echols CMA) Alcohol intake: never Patient Tobacco Use Status: Current everyday Tobacco user Review of Systems Const Denies chills, Reports fatigue, Denies fever(s), Denies weight gain and Denies weight loss ENT Denies dizziness Card Reports chest pain, Denies leg edema, Denies lightheadedness, Denies palpitations, Reports dyspnea on exertion, Denies orthopnea and Denies other Resp Denies cough and Reports dyspnea on exertion GI Denies hematochezia and Denies change in stool character Musc Denies abnormal gait, Denies muscle weakness, Denies numbness, Denies radiating pain into limb and Denies tingling Neuro Denies abnormal gait, Denies dizziness, Denies numbness and Denies tingling Endo Reports fatigue and Denies palpitations Physical Exam Vital Signs: Last Vital Signs Pulse 75 06/15/24 11:15 BP 118/64 06/15/24 11:15 BMI result Body Mass Index 27.9 Const General: comfortable and no acute distress Orientation/consciousness: patient oriented x3 HEENT Other: Unremarkable Head: Yes normal to inspection Neck Neck: Yes normal visual inspection Chest Chest palpation & inspection: normal inspection of the chest Resp Auscultation: clear to auscultation bilaterally Cardio Palpation: normal PMI Heart sounds: S1 normal heart sound present, S2 normal heart sound present, no gallops, no murmurs and no rubs GI Palpation (GI): Soft to palpation Back/Spine/Pelvis Other: unremarkable Skin General skin exam: no rashes or lesions noted Neuro General: patient oriented x3 Extrem General: Yes normal to inspection Psych Mental Status: mental status grossly normal Office Procedures EKG Details: EKG with underlying sinus rhythm at 75/Min; no significant ST-T changes and otherwise unremarkable. [place] [address]-[id number], Complete Assessment & Plan Assessment & Plan (1) Hyperlipidemia: Code(s): E78.5 - Hyperlipidemia, unspecified Category: Medical (2) Statin intolerance: Code(s): Z78.9 - Other specified health status (3) Family history of premature coronary artery disease: Code(s): Z82.49 - Family history of ischemic heart disease and other diseases of the circulatory system Category: Medical (4) Smoking: Code(s): F17.200 - Nicotine dependence, unspecified, uncomplicated Category: Social Hx (5) Preoperative cardiovascular examination: Code(s): Z01.810 - Encounter for preprocedural cardiovascular examination Category: Medical Plan Cardiac studies reviewed. Baseline EKG unremarkable. Exercise stress echocardiogram- >10 METS with some borderline ST-T changes, but again no angina and the echocardiographic portion was also unremarkable. Overall, normal study. In the transthoracic echocardiogram, LVEF 55-60% with normal diastolic filling and otherwise unremarkable. Calcium score was 0 in 2019. Repeated in 2023 and again 0. Overall, main recommendation is to stop smoking. She will discuss with PCP about that. With regard to lipids, cannot take statins and hence on Repatha. With regard to colonoscopy may proceed. Low cardiac risk. There was incidental finding of right upper lobe nodule in the calcium scoring CT scan and she can discuss that with her own PCP regarding follow-up CT scans. She is aware of that and we discussed today. Coding Level of Care Code Est Pt Level 3 (32028) Diagnoses Hyperlipidemia E78.5 Statin intolerance Z78.9 Family history of premature coronary artery disease Z82.49 Smoking F17.200 Preoperative cardiovascular examination Z01.810 CPT Codes EKG - CPT: 24504-Axqtmnbxgbfrlvjiu, Complete ([id number])
[2024-06-15 11:15] VITALS: BP 118/64; PULSE 75; BMI 27.9
== END 2024-06-15 13:08 | disposition home or self-care (01) ==
PROVIDERS: PCP Internal Medicine; Visit Provider Internal Medicine
DX: E78.5 Hyperlipidemia, unspecified (principal); Z78.9 Other specified health status; Z82.49 Family history of ischemic heart disease and other diseases of the circulatory system; F17.200 Nicotine dependence, unspecified, uncomplicated; Z01.810 Encounter for preprocedural cardiovascular examination
CPT/HCPCS: 93010; 99213

== ENCOUNTER → 2024-06-15 11:02 | Outpatient (BNVA) | payer OTHER, SELFPAY | PROVIDERS: PCP Internal Medicine; Visit Provider Internal Medicine | DX: Z01.810 Encounter for preprocedural cardiovascular examination (principal); E78.5 Hyperlipidemia, unspecified; F17.200 Nicotine dependence, unspecified, uncomplicated; Z78.9 Other specified health status; Z82.49 Family history of ischemic heart disease and other diseases of the circulatory system | CPT/HCPCS: 93005 ==

== ENCOUNTER 2024-08-01 14:02 | Outpatient (AMB) | payer OTHER, SELFPAY ==
[2024-08-01 14:04] VITALS: BP 126/58; PULSE 78; O2SAT 94; BMI 28.0
--- NOTE | 2024-08-01 14:04 | A.OFFVIS_ITS ---
Vital Signs 08/01/24 14:04 Height 5 ft 1 in Weight 148 lb 2.41 oz BMI 28.0 BP 126/58 L Blood Pressure Location Rt brachial Position Sitting Pulse 78 Pulse Source Pulse Oximeter Pulse Oximetry (%) 94 Oxygen Delivery Method Room Air Intake Visit Reasons: 4 mo f/u Intake Note: ESTABLISHED PATIENT for abd pain mgmt w/ hx of diverticulitis. Chief Complaint; Hand Wrapper Operator Required: No Allergies mirabegron [From Myrbetriq] Allergy (Intermediate, Verified 08/01/24 14:07) Hives midazolam [From Versed] Adverse Reaction (Intermediate, Verified 08/01/24 14:07) Rash morphine Adverse Reaction (Intermediate, Verified 08/01/24 14:07) Unknown HPI HPI 4 mo f/u: Details: LAST VISIT: Postprandial diarrhea Diverticulitis Postprandial abdominal bloating Plan Patient will continue high-fiber diet. Increase fluid intake and activity to promote better bowel motility. Message sent to manager placement of the Cardiology Department to book appointment for patient so she can before sending her for colonoscopy. Patient denies any melena, hematochezia, unintentional weight loss or ribbon like stools. Patient denies any dyspepsia, dysphagia or odynophagia. Patient will return to the office in 4 months, sooner on as needed basis. She is agreeable to this plan and verbalizes understanding of instructions. She was given the opportunity to ask questions and all questions answered. ? TODAY'S VISIT Patient is here today for follow-up. Patient reports that she still has occasional dollar like pain and cramping in the left lower quadrant. Patient denies melena, hematochezia, unintentional weight loss or ribbon like stools. Patient is taking fiber supplements with probiotics. Moves her bowels daily. Feels like she empties completely. Last colo with Natali in 2013. Patient also had upper endoscopy at that time. Patient denies any dyspepsia, dysphagia or odynophagia. Denies any family history of CRC. Patient was cleared by Cardiology [facility] Medical History Fibrocystic changes of right breast (~1989) Hyperlipidemia Surgical History History of tubal ligation History of appendectomy Family History Father History of quadruple bypass Multiple myeloma Diabetes Heart attack Brother Aortic valve replaced Social History Alcohol intake: never Patient Tobacco Use Status: Current everyday Tobacco user Review of Systems Const Denies weight gain and Denies weight loss ENT Reports no additional complaints, Denies dysphagia and Denies odynophagia Card Reports no additional complaints Resp Reports no additional complaints GI Reports abdominal pain (LLQ cramping), Denies belching, Denies melena, Denies bloating, Denies change in bowel habits, Denies dysphagia, Denies excessive flatus, Denies dyspepsia, Denies heartburn, Denies diarrhea, Denies loose stools, Denies nausea, Denies odynophagia and Denies vomiting Reports no additional complaints Musc Reports no additional complaints Neuro Reports no additional complaints Psych Reports no additional complaints Endo Reports no additional complaints Physical Exam Const General: healthy appearing, no acute distress and well developed Nutritional Appearance: well nourished Orientation/consciousness: patient oriented x3 Resp Effort & Inspection: normal respiratory effort, able to speak in complete sentences, no tracheal deviation and symmetric chest movement Auscultation: clear to auscultation bilaterally Cardio Rate: regular rate GI Inspection: Yes normal to inspection and No distended Palpation (GI): Soft to palpation, not firm, nontender and No hepatosplenomegaly present Auscultation: normal bowel sounds General: Yes no CVA tenderness Back/Spine/Pelvis Back: no CVA tenderness Skin General skin exam: elasticity normal, turgor normal and dry skin Neuro General: patient oriented x3 Psych Appearance: grossly normal Mental Status: mental status grossly normal Assessment & Plan Assessment & Plan (1) Postprandial diarrhea: Code(s): K52.9 - Noninfective gastroenteritis and colitis, unspecified (2) Diverticulitis: Code(s): K57.92 - Diverticulitis of intestine, part unspecified, without perforation or abscess without bleeding (3) Postprandial abdominal bloating: Code(s): R14.0 - Abdominal distension (gaseous) (4) Screen for colon cancer: Code(s): Z12.11 - Encounter for screening for malignant neoplasm of colon Plan Patient will be scheduled for colonoscopy. Denies any issues with anesthesia in the past. No history of sleep apnea. Not on any anticoagulation medication. Patient denies melena, hematochezia, unintentional weight loss or ribbon like stools. Last colonoscopy was in 2013. No family history of CRC. What to expect before during and after procedure discussed with patient. Stressed the importance of good bowel prep and clear liquid diet. I will see her after the procedure, sooner on as needed basis. She is agreeable to this plan and verbalizes understanding of instructions. She was given the opportunity to ask questions and all questions answered. Thank you for allowing me to participate in her care Medications: New bisacodyl (Dulcolax (bisacodyl)) take 4 tabs at noon the day before your colonoscopy 20 mg (4 x 5 mg) PO ONCE 1 day 4 tabs 0RF Z12.11 - Encounter for screening for malignant neoplasm of colon polyethylene glycol 3350 (Miralax) As directed by gastroenterology department at [facility] 238 grams PO ONCE 238 grams 0RF Z12.11 - Encounter for screening for malignant neoplasm of colon Coding Level of Care Code Est Pt Level 3 (87002) Diagnoses Postprandial diarrhea K52.9 Diverticulitis K57.92 Postprandial abdominal bloating R14.0 Screen for colon cancer Z12.11 Time Spent (min) 30 Comment 20 minutes spent with patient and additional 10 minutes spent reviewing her records
--- OUTSIDE RECORDS SUMMARY | 2024-08-01 16:42 | XMS_ITS | Encounter Summary ---
Author Organization [facility] Address [address] [place] [address] Care Team Providers Care Remote Encoding Operations Supervisor Name Role Phone Jefe Obregon MD Primary Care Provider [phone] Encounter Details Date Type Department Care Team Description 08/09/2021 [place] [address] Susan Figueroa [address] [place] [address] Social History Tobacco Use Types Packs/Day Years Used Date Smoking Tobacco: Every Day Cigarettes 1 18 Started: 09/06/2000 Smokeless Tobacco: Never Alcohol Use Standard Drinks/Week Comments Not Currently 0 (1 standard drink = 0.6 oz pur e alcohol) Sex and Gender Information Value Date Recorded Sex Assigned at Female 06/16/2018 12:44 PM EST Gender Identity Female 05/04/2022 10:16 AM EST Sexual Orientation Not on file Job Start Date Occupation Industry Not on file Not on file Not on file documented as of this encounter Functional Status Functional Status Response Date of Assess ment Pt deaf or have serious difficulty hearing? No 09/18/2020 Pt blind or have difficulty seeing, even with gl asses? No 09/18/2020 documented as of this encounter Plan of Treatment Not on file documented as of this encounter Visit Diagnoses Not on filedocumented in this encounter Care Teams Remote Encoding Operations Supervisor Relationship Specialty Start Date End Date Jefe Obregon MD [address] [place] [address] [address] [place] [address] PCP - General Educational Therapist 04/21/22 documented as of this encounter
--- OUTSIDE RECORDS SUMMARY | 2024-08-01 16:42 | XMS_ITS ---
Author Organization [employer] [facility] Address [address] [facility] [address] [place] [address] Care Team Providers Care Gag Writer Name Role Phone SYED YUEN M.D. Primary Care Provider RASHEEDA Kaiser Unavailable [phone] REASON FOR VISIT [place] [facility] Encounters Encounter Location Date Provider Diagnosis [facility] [employer] [address] [place] [address] 04/07/2023 RASHEEDA HUMPHRIES Plan Of Treatment Next Appt Details Provider Name:RASHEEDA Chapman, 03/31/2025 02:30:00 PM, [address] [place] [address], [address], [place], [address], Progress Notes * FREDY HOROWITZOB:1965 ( 58 yo F)Acc No.[id number]:04/07/2023 Patient:?ZACH HOROWITZRA :1965???Age:58 Y???Sex:Female Address:[address] [place] [address], [address] * true * Date:? Generated for Printi ng/Ty/eTransmitting on:?08/01/2024 04:41 PM EST
--- OUTSIDE RECORDS SUMMARY | 2024-08-01 16:42 | XMS_ITS ---
Author Organization [employer] [facility] Address [address] [place] [address] Care Team Providers Care Retail Office Associate Name Role Phone SYED YUEN M.D. Primary Care Provider RASHEEDA Kaiser Unavailable [phone] REASON FOR VISIT Clobetasol Refill Medications Medication SIG (Take, Route, Frequency, Duration) Notes Start Date End Date Status Clobetasol Propionate 0.05 % 1 application Externally twice weekly for 365 days 09/08/2022 Active Encounters Encounter Location Date Provider Diagnosis [facility] [employer] [address] [address] 01/08/2024 RASHEEDA HUMPHRIES Lichen sclerosus et atrophicus L90.0 Assessments Encounter Date Diagnosis (ICD Code) Assessment Notes Treatment Notes Treatment Clinical Notes Section Notes 01/08/2024 Lichen sclerosus et atrophicus (ICD-10 - L90.0) Plan Of Treatment Medication Medication Name Sig Start Date Stop Date Notes Clobetasol Propionate 0.05 % 1 applicati on Externally twice weekly for 365 days 09/08/2022 Next Appt Details Provider Name:RASHEEDA Chapman, 03/31/2025 02:30:00 PM, [address] [place] [address], [facility] [address], [place], [address], Progress Notes * FREDY HOROWITZOB:1965 ( 58 yo F)Acc No.[id number]:01/08/2024 Patient:?LASHONDA HOROWITZ :1965???Age:58 Y???Sex:Female Address:[address] [place] [address] [place], [address] * Refills? Refill Clobetasol Propionate Ointment, 0.05 %, Externally, 15 grams, 1 application, twice weekly, 365 days, Refills=0 * true * Date:? Generated for Amy marei/Ty/Atulitting on:?08/01/2024 04:42 PM EST
--- OUTSIDE RECORDS SUMMARY | 2024-08-01 16:42 | XMS_ITS | Clinical Summary ---
Author Organization [facility] Address [address] [place] [address] Care Team Providers Care Insurance Commissioner Name Role Phone Jefe Obregon MD Primary Care Provider [phone] Allergies Active Allergy Reactions Criticality Noted Date Comments Levofloxacin 05/04/2022 Mirabegron Hives High 09/24/2016 hives Morphine Palpitations,Rash Low 04/18/2015 Midazolam Hives High 07/16/2016 Increased Blood pressure Medications Medication Sig Dispensed Refills Start Date End Date Status escitalopram (LEXAPRO) tablet 10 mg take 1 tablet by mouth once daily 0 04/07/2016 Active clobetasol (TEMOVATE) 0.05 % ointmentIndications: Vulvar dystrophy Apply topically 2 (two) times a day. 30 g 0 11/06/2021 Active amoxicillin-clavulan ate (AUGMENTIN) 875-125 MG per tablet Take 1 tablet by mouth 2 (two) times a day. 20 tablet 0 05/04/2022 Active ezetimibe (ZETIA) tablet 10 mg TAKE 1 TABLET DAILY 90 tablet 3 09/17/2022 Active Repatha SureClick 140 MG/ML injection INJECT 1 PEN EVERY OTHER WEEK 2 mL 0 04/03/2023 Active Active Problems Problem Noted Date Diagnosed Date Lichen simplex chronicus 01/02/2021 Peripheral vascular disease 01/26/2019 Abnormal finding on MRI of brain 03/16/2017 Numbness and tingling of both legs below knees 1 Lower abdominal pain 07/16/2016 Irritable bowel syndrome wit h both constipation and diarrhea 07/16/2016 Encounter for annual routine gynecological exami [facility] 04/22/2016 Abdominal pain, left lower quadrant 04/18/2015 Arthralgia of multiple joints 04/18/2015 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 Beat, premature ventricular 04/18/2015 Clinical depression 07/10/2009 Resolved Problems Problem Noted Date Diagnosed Date Resolved Date Lichen sclerosus of female genitalia 11/03/2019 01/02/2021 Visit for gynecologic examination 04/18/2015 09/07/2018 Immunizations Name Administration Dates Next Due Covid-19 (Pfizer) Dilution Required 06/05/2020,1 07/19/2019 Family History Medical History Relation Name Comments Heart disease Brother Cerebral palsy Daughter Cancer Father MULTIPLE MYELOM A Heart disease Father Dementia Maternal Grandfather Dementia Maternal Grandmother Rheum arthritis Maternal Grandmother Atrial fibrillation Mother Dementia Mother Obesity Mother Hypertension Sister BRCA 1/2 Neg Hx Breast cancer Neg Hx Colon cancer Neg Hx Endometrial cancer Neg Hx Ovarian cancer Neg Hx Uterine cancer Neg Hx Relation Name Status Comments Brother Daughter Father Maternal Grandfather Maternal Grandmother Mother 08/09/2019 Sister Social History Tobacco Use Types Packs/Day Years Used Date Smoking Tobacco: Former Cigarettes 1 18 0 09/06/2000 - 03/15/2022 Smokeless Tobacco: Never Tobacco Cessation:Counseling Given: Not Answered Alcohol Use Standard Drinks/Week Comments Not Currently 0 (1 standard drink = 0.6 oz pur e alcohol) Sex and Gender Information Value Date Recorded Sex Assigned at Female 06/16/2018 12:44 PM EST Gender Identity Female 05/04/2022 10:16 AM EST Sexual Orientation Not on file Job Start Date Occupation Industry Not on file Not on file Not on file Last Filed Vital Signs Vital Sign Reading Time Taken Comments Blood Pressure 132/89 05/04/2022 9:12 AM EST Pulse 89 05/04/2022 9:12 AM EST Temperature 36.4 ??C (97.5 ??F) 05/04/2022 9:12 AM ES T Respiratory Rate 18 05/04/2022 9:12 AM EST Oxygen Saturation 96% 05/04/2022 9:12 AM EST Inhaled Oxygen Concentration - - Weight 65.8 kg (145 lb) 05/04/2022 9:12 AM EST Height 154.9 cm (5' 1 ) 05/04/2022 9:12 AM EST Body Mass Index 27.4 05/04/2022 9:12 AM EST Plan of Treatment Health Maintenance Due Date Last Done Comments Pneumococcal Vaccine (1 of 2 - PCV) 1969 Depression Screening 1975 Tobacco Cessation Counseling 1981 DTap / Tdap / Td (1 - Tdap) 1982 Shingrix-Zoster Vaccine (1 of 2) 1982 Colon Cancer Screening (Colonoscopy) 01/26/2008 COVID-19 Vaccine (3 - Pfizer risk series) 07/03/2020 06/05/2020, 05/18/2020 Cervical Cancer Screening (Pap Smear) 09/06/2021 09/06/2018, 04/22/2016, 09/17/2012 Preventative Health Evaluation 11/20/2021 11/20/2020, 11/03/2019, 09/06/2018, Additional history exists BMI Counseling 01/02/2022 01/02/2021, 10/31, 11/03/2019, Additional history exists Breast Cancer Screening (Mammogram) 03/27/2023 03/27/2021, 12/13/2019, 06/16/2018, Additional history exists Influenza Vaccine (#1) 2024 02/19/2015 RSV Adult > 60+ Yrs or (1 - 1-dose 75+ series) 2038 Hepatitis C Screening Completed 11/04/2019, 018 Hepatitis B Vaccines Aged Out No long er eligible based on patient's age to complete this topic RSV Ped < 20 months Aged Out No longe r eligible based on patient's age to complete this topic Medical Devices Implanted Type Area Stonehand Device Identifier Shelf Expiration Date Model / Serial / Lot Lens Tecnis Tecnis Itec Protec Tri-Fix +23.5 Diopter - [id number] - [id number] Implanted:Qty: 1 on 09/12/2020 by Yunier Kidd MD at [facility] Location Lens Left: Eye [employer] AND [employer] 08/09/2022 [id number] / [id number] / Lens Tecnis 13mm +22.5 Diopter +1.5 Cylinder Modify - [id number] - [id number] Implanted:Qty: 1 on 09/18/2020 by Yunier Kidd MD at [facility] Location Lens Right: Eye [employer] 08/16/2025 [id number] / [id number] / . Advance Directives For more information, please contact: [phone] Documents on File Type Date Recorded Patient Tempering Oven Operator Expl anation Advance Directive and Living Will 09/05/2013 Care Teams Insurance Commissioner Relationship Specialty Start Date End Date Jefe Obregon MD [address] [place] [address] [address] [place] [address] PCP - General Computer Aided Design Designer 04/21/22
--- OUTSIDE RECORDS SUMMARY | 2024-08-01 16:42 | XMS_ITS | Clinical Summary ---
Author Organization [facility] it Address [address] [place] [address] Care Team Providers Care Supervisor Seaming Name Role Phone Jefe Obregon MD Primary Care Provider [phone] Immunizations Name Administration Dates Next Due Pfizer SARS-CoV-2 COVID-19, mRNA, LNP-S, preservative free 06/05/2020,05/18/2020 Surgical History Surgery Date Site/Laterality Comments APPENDECTOMY age 15 PROCEDURE: HISTORICAL APPENDECTOMY TONSILLECTOMY age 8 PROCEDURE: HISTORICAL TONSILLECTOMY OTHER SURGICAL HISTORY age 25 PROCEDURE: [place] EXC CYST/ABERRANT BREAST TISSUE OPEN 1/> LESION; COMMENT: benign, right breast fibrocystic OTHER SURGICAL HISTORY 2009 PROCEDURE: [place] ENDOMETRIAL BX W/WO ENDOCERVIX BX W/O DILAT SPX; COMMENT: negative COLONOSCOPY 2004 or 2005 PROCEDURE: HISTORICAL COLONOSCOPY; COMMENT: [facility] ESOPHAGOGASTRODUODENOSCOPY PROCEDURE: [place] ESOPHAGOGASTRODUODENOSCOPY TRANSORAL DIAGNOSTIC Family History Medical History Relation Name Comments Coronary artery disease Father s/p CABG, 1990 Multiple myeloma Father Diabetes Mother Relation Name Status Comments Father Mother Social History Tobacco Use Types Packs/Day Years Used Date Smoking Tobacco: Former Cigarettes Q uit: 10/30/2010 Smokeless Tobacco: Never Alcohol Use Standard Drinks/Week Comments Yes 0 (1 standard drink = 0.6 oz pur e alcohol) Comments Unknown Sex and Gender Information Value Date Recorded Sex Assigned at Not on file Legal Sex Female 9:06 PM EST Gender Identity Not on file Sexual Orientation Not on file Obstetrics History Last Filed Vital Signs Vital Sign Reading Time Taken Comments Blood Pressure 136/82 04/21/2022 9:05 AM EST Pulse 77 04/21/2022 9:05 AM EST Temperature - - Respiratory Rate - - Oxygen Saturation - - Inhaled Oxygen Concentration - - Weight 66.2 kg (146 lb) 04/21/2022 9:05 AM EST Height 154.9 cm (5' 1 ) 04/21/2022 9:05 AM EST Body Mass Index 27.59 04/21/2022 9:05 AM EST Plan of Treatment Health Maintenance Due Date Last Done Comments DTaP,Tdap,and Td Vaccines (1 - Tdap) 1982 Pneumococcal Vaccine: 50+ Years (1 of 2 - PCV) 1982 Pneumococcal Vaccine: Pediatrics (0 to 5 Years) and At-Risk Patients (6 to 64 Years) (1 of 2 - PCV) 1982 Zoster Vaccines (1 of 2) 1982 COVID-19 Vaccine (3 - Pfizer risk series) 07/03/2020 06/05/2020, 05/18/2020 Cervical Cancer Screening: Pap Smear 09/06/2021 09/06/2018 Colorectal Cancer Screening: Colonoscopy 05/07/2022 Depression Screening 05/07/2022 HIV Screening 05/07/2022 Hepatitis C Screening 05/07/2022 Social Influencers of Health Screening 05/07/2022 Breast Cancer Screening 03/27/2023 03/27/20, 12/13/2019, 06/16/2018 Hypertension/CHF/CAD Annual BMP Blood Test 12/25/2023 05/04/2022, 05/04/2022, 06/20/2021, Additional history exists Influenza Vaccine (#1) 2024 02/28/2020 Cholesterol Screening (Lipid Panel) 06/14/2027 06/14/2022, 11/08/2021, 03/23/2021, Additional history exists RSV Immunization Patients 60+ Years Old (1 - 1-dose 75+ series) 2038 HIB Vaccines Aged Out No longer eligi ble based on patient's age to complete this topic HPV Vaccines Aged Out No longer eligi ble based on patient's age to complete this topic Hepatitis A Vaccines Aged Out No long er eligible based on patient's age to complete this topic Hepatitis B Vaccines Aged Out No long er eligible based on patient's age to complete this topic IPV Vaccines Aged Out No longer eligi ble based on patient's age to complete this topic MMR Vaccines Aged Out No longer eligi ble based on patient's age to complete this topic Meningococcal ACWY Vaccine Aged Out N o longer eligible based on patient's age to complete this topic Meningococcal B Vacine Aged Out No lo nger eligible based on patient's age to complete this topic RSV Immunization Patients Under 20 months Aged Out No longer eligible based on patient's age to complete this topic Varicella Vaccines Aged Out No longer eligible based on patient's age to complete this topic Medical Devices Implanted Type Area Painter Set Device Identifier Shelf Expiration Date Model / Serial / Lot Lens Tecnis Tecnis Itec Protec Tri-Fix +23.5 Diopter - [id number] - [id number] Implanted:Qty: 1 on 09/12/2020 by Yunier Kidd MD Implants Left: [employer] 08/09/2022 [id number] / [id number] / Lens Tecnis 13mm +22.5 Diopter +1.5 Cylinder Modify C - [id number] - [id number] Implanted:Qty: 1 on 09/18/2020 by Yunier Kidd MD Implants Right: Eye [employer] 08/16/2025 [id number] / [id number] / . Procedures Procedure Name Priority Date/Time Associated Diagnosis Comments MAMMOGRAM SCREENING BILATERAL 3D LUIS WITH CAD Routine 03/27/2021 12:23 PM EDT Encounter for screening mammogram for malignant neoplasm of breast PAP SMEAR Routine 09/06/2018 12:00 AM EDT from Last 3 Months or Most Recently Relevant to Health Maintenance Results * MAMMOGRAM SCREENING BILATERAL 3D LUIS WITH CAD (03/27/2021 12:23 PM EDT) Anatomical Region Laterality Modality Mammography 11/20/2020 3:16 PM EDT Narrative 03/29/2021 1:12 PM EDT This is a summary report. The complete report is available in the patient's medical record. If you cannot access the medical record, please contact the sending organization for a detailed fax or copy. SESSION: Separate. EXAMINATION: Bilateral digital mammograms with CAD and Tomosynthesis. TECHNIQUE: Bilateral full field digital mammography with synthesized (2D) the and Tomosynthesis (3-D) was performed using standard cc and MLO projections. Mammogram was interpreted in correlation with CAD and Tomosynthesis. INDICATION: Yearly screening. FINDINGS: Compared to 12/13/2019, 06/16/2018 and 05/29/2017. There are scattered areas of fibroglandular density. (Density B, 25% to less than 50%). There is no significant change in the appearance and distribution of benign fibroglandular as well as fibronodular densities in the both breasts. A few typically benign scattered calcifications as well as benign-appearing axillary lymph nodes are stable. No suspicious microcalcifications or masses are seen. ?? CONCLUSION: 1. ??Stable mammographic findings with no evidence of malignancy. 2. ??Patient should continue with yearly screening mammography. NOTE: Patient has been informed about results of this screening mammogram, by a patient letter with 'plain language report'. BI-RADS Category 2: Benign findings. PQRI: 3342F. Report reviewed and signed by : Dr. Kurt Liu MD on 03/29/2021 1:12 PM. Workstation Name - [id number] Procedure Note Kurt Liu MD - 05/24/2022 This is a summary report. The complete report is available in thepatient's medical record. If you cannot access the medical record, pleasecontact the sending organization for a detailed fax or copy. SESSION: Separate. EXAMINATION: Bilateral digital mammograms with CAD and Tomosynthesis. TECHNIQUE: Bilateral full field digital mammography with synthesized (2D)the and Tomosynthesis (3-D) was performed using standard cc and MLOprojections. Mammogram was interpreted in correlation with CAD andTomosynthesis. INDICATION: Yearly screening. FINDINGS: Compared to 12/13/2019, 06/16/2018 and 05/29/2017. There are scattered areas of fibroglandular density. (Density B, 25% toless than 50%). There is no significant change in the appearance anddistribution of benign fibroglandular as well as fibronodular densities inthe both breasts. A few typically benign scattered calcifications as well asbenign-appearing axillary lymph nodes are stable. No suspiciousmicrocalcifications or masses are seen. CONCLUSION: 1. Stable mammographic findings with no evidence of malignancy. 2. Patient should continue with yearly screening mammography. NOTE: Patient has been informed about results of this screening mammogram,by a patient letter with 'plain language report'. BI-RADS Category 2: Benign findings. PQRI: 3342F. Report reviewed and signed by : Dr. Kurt Liu MD on 03/29/2021 1:12PM. Workstation Name - [id number] us Heidy Gaytan CNM IMG BI PROCEDURES Final Res ult * Pap smear (09/06/2018 12:00 AM EDT) Case Results Patient Name: MONICA HALL MR#: [id number] Collected Date: 09/06/2018 Reported Date: 09/08/2018 Specimen #[id number] Final Diagnosis Satisfactory for evaluation. ??Endocervical transformation zone component present. Partially obscuring inflammation noted. Negative for Intraepithelial Lesion or Malignancy. Clinical Diagnosis Z01.419 Source: A: ThinPrep Imaged Pap Cervical-SC Electronically Signed Out By THERESA Cui(ASCP) Note: The Pap test is a screening test with an inherent false negative rate. Automated prescreening of all liquid based specimens is performed by the [facility]in[facility] System unless otherwise stated. Test Performed by: [address] ??[id number] Jb Soler Jr., M.D., [facility], Director HISTORICAL TESTING LAB RESULTING AGENCY Comment:MR#: [id number] 09/06/2018 Greta Boyer MD LAB CYTOLOGY ORDERABLES Edited Result - Final HISTORICAL TESTING LAB RESULTING AGENCY from Last 3 Months or Most Recently Relevant to Health Maintenance Care Teams Supervisor Seaming Relationship Specialty Start Date End Date Jefe Obregon MD [address] [place] [address] Dr Byron MA PCP - General 04/21/22
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
--- OUTSIDE RECORDS SUMMARY | 2024-08-01 16:42 | XMS_ITS | Patient Health Record ---
Author Organization [facility] Address [address] [place] [address] Care Team Providers Care Butter Maker Name Role Phone SYED YUEN M.D. Primary Care Provider RASHEEDA Kaiser Unavailable [phone] Allergies Allergen (clinical drug ingredient) Drug/Non Drug Allergy documented on EMR Reaction Allergy Type Onset Date Status mirabegron Myrbetriq hives Drug Allergy Active morphine Morphine hives Drug Allergy Active Reason For Referral No Information Medications Medication SIG (Take, Route, Frequency, Duration) [...] Tobacco non-user Ex-light c igarette smoker (1-9/day) Problems Problem Type SNOMED Code ICD Code Onset Dates Problem Status W/U Status Risk Notes Problem Urinary incontinence (955081403) Unspecified urinary incontinence (R32) Active confirmed Problem Hyperlipidemia (20782344) Hyperlipidemia, unspecified (E78.5) Active confirmed Problem Mild recurrent major depression (07899298) Major depressive disorder, recurrent, mild (F33.0) Active confirmed Problem 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) Lichen sclerosus et atrophicus (L90.0) Active confirmed Problem COVID-19 (765773774) COVID-19 (U07.1) Active confirmed Vital Signs Temperature 98.0 degrees Fahrenheit 03/28/2024 Blood pressure diastolic 70 mm Hg 03/28/2024 Height 61 in 03/28/2024 Blood pressure systolic 120 mm Hg 03/28/2024 Weight 149 lbs 03/28/2024 BMI 28.15 kg/m2 03/28/2024 Encounters Encounter Location Date Provider Diagnosis [facility] [address] [employer] [address] [address] 03/28/2024 RASHEEDA HUMPHRIES Encounter for gynecological examination (general) (routine) without abnormal findings Z01.419 ; Encounter for screening mammogram for malignant neoplasm of breast Z12.31 and Lichen sclerosus et atrophicus L90.0 [facility] [address] [address] 01/08/2024 RASHEEDA HUMPHRIES Lichen sclerosus et atrophicus L90.0 Assessments Encounter Date Diagnosis (ICD Code) Assessment Notes Treatment Notes Treatment Clinical Notes Section Notes 01/08/2024 Lichen sclerosus et atrophicus (ICD-10 - L90.0) 03/28/2024 Encounter for gynecological examination (general) (routine) [...] needed at this time Plan Of Treatment Pending Test Test Name Order Date SURGICAL PATHOLOGY 09/02/2022 THIN PREP,HPV,VERONIQUE IF HPV+ (>29YR)(DIAG) 03/24/2023 MM Digital Screening Mammogram 3D 2023 MM Digital Screening Mammogram 3D 2022 Next Appt Details Provider Name:RASHEEDA HUMMEL Ari, 03/31/2025 02:30:00 PM, [address] [facility] [address], [address], [place], [address], Insurance Providers Payer Name Payer Address Payer Phone Subscriber Number Group Number Insured Name Patient Relationship to Insured Coverage Start Date Coverage End Date [employer] [address] [address] [place] [address] [id number] LASHONDA HOROWITZ Self - patient is the insured Medical (General) History Medical History History ICD Code Major depressive disorder, recurrent, mi ld F33.0 Hyperlipidemia, unspecified E78.5 COVID-19 U07.1 Lichen sclerosus et atrophicus L90.0 Surgical History Surgery Date(Month/Year) Appendectomy 10/1980 Tonsillectomy 1969' Bilateral tubal ligation 1997 Hospitalization History Reason Date(Month/Year) Diverticulitis [facility] 06/2021 Childbirth
== END 2024-08-01 15:47 | disposition home or self-care (01) ==
PROVIDERS: PCP Internal Medicine; Visit Provider Nurse Practitioner Family
DX: K52.9 Noninfective gastroenteritis and colitis, unspecified (principal); K57.92 Diverticulitis of intestine, part unspecified, without perforation or abscess without bleeding; R14.0 Abdominal distension (gaseous)
CPT/HCPCS: 99213

== ENCOUNTER 2024-08-25 07:03 | Day surgery (SDC) | payer OTHER, SELFPAY ==
--- OUTSIDE RECORDS SUMMARY | 2024-08-02 07:23 | XMS_ITS | Patient Health Record ---
Author Organization [employer] [facility] Address [address] [place] [address] Care Team Providers Care Extrusion Operator Name Role Phone SYED YUEN M.D. Primary Care Provider RASHEEDA Kaiser Unavailable [phone] Allergies Allergen (clinical drug ingredient) Drug/Non Drug [...] W/U Status Risk Notes Problem Urinary incontinence (882955853) Unspecified urinary incontinence (R32) Active confirmed Problem Hyperlipidemia (88068782) Hyperlipidemia, unspecified (E78.5) Active confirmed Problem Mild recurrent major depression (03164717) Major depressive disorder, recurrent, mild (F33.0) Active confirmed Problem Localized morphea (206754108) Lichen sclerosus et atrophicus (L90.0) Active confirmed Problem COVID-19 (108120351) COVID-19 (U07.1) Active confirmed Vital Signs Temperature 98.0 degrees Fahrenheit 03/28/2024 Blood pressure diastolic 70 mm Hg 03/28/2024 Height 61 in 03/28/2024 Blood pressure systolic 120 mm Hg 03/28/2024 Weight 149 lbs 03/28/2024 BMI 28.15 kg/m2 03/28/2024 Encounters Encounter Location Date Provider Diagnosis [facility] [employer] [address] [address] 03/28/2024 RASHEEDA HUMPHRIES Encounter for gynecological examination (general) (routine) without abnormal findings Z01.419 ; Encounter for screening mammogram for malignant neoplasm of breast Z12.31 and Lichen sclerosus et atrophicus L90.0 [facility] [address] 01/08/2024 RASHEEDA HUMPHRIES Lichen sclerosus et atrophicus [...] 03/31/2025 02:30:00 PM, [address] [facility], [address], [place], [address], Insurance Providers Payer Name Payer Address Payer Phone Subscriber Number Group Number Insured Name Patient Relationship to Insured Coverage Start Date Coverage End Date [employer] [place] [address] [address] [place] [address] [id number] LASHONDA HOROWITZ Self - patient is the insured Medical (General) History Medical History History ICD Code Major depressive disorder, recurrent, mi ld F33.0 Hyperlipidemia, unspecified E78.5 COVID-19 U07.1 Lichen sclerosus et atrophicus L90.0 Surgical History Surgery Date(Month/Year) Appendectomy 10/1980 Tonsillectomy 1969' Bilateral tubal ligation 1997 Hospitalization History Reason Date(Month/Year) Diverticulitis [facility] 06/2021 Childbirth
--- OUTSIDE RECORDS SUMMARY | 2024-08-02 07:24 | XMS_ITS | Encounter Summary ---
Author Organization [facility] Address [address] [place] [address] Care Team Providers Care Strategic Communications Manager Name Role Phone Jefe Obregon MD Primary Care Provider [phone] Encounter Details Date Type Department Care Team Description 08/09/2021 [place] [address] Susan Figueroa [address] [place] [address] Social History Tobacco Use Types Packs/Day Years [...] on filedocumented in this encounter Care Teams Strategic Communications Manager Relationship Specialty Start Date End Date Jefe Obregon MD [address] [place] [address] Dr [address] [place] [address] PCP - [employer] Container Tester 04/21/22 documented as of this encounter
--- OUTSIDE RECORDS SUMMARY | 2024-08-02 07:24 | XMS_ITS ---
Author Organization [employer] [facility] Address [address] [facility] [address] [place] [address] Care Team Providers Care Trailer Sections Assembler Name Role Phone SYED YUEN M.D. Primary Care Provider RASHEEDA Kaiser Unavailable [phone] REASON FOR VISIT [facility] Encounters Encounter Location Date Provider Diagnosis [facility] [employer] [address] [place] [address] 04/07/2023 RASHEEDA HUMPHRIES Plan Of Treatment Next Appt Details Provider Name:RASHEEDA Chapman, 03/31/2025 02:30:00 PM, [address] [place] [address], [address], [place], [address], Progress Notes * FREDY HROOWITZOB:1965 ( 58 yo F)Acc No.[id number]:04/07/2023 Patient:?ZACH HOROWITZRA :1965???Age:58 Y???Sex:Female Address:[address] [place] [address], [address] * true * Date:? Generated for Printi ng/Ty/eTransmitting on:?08/02/2024 07:23 AM EST
--- OUTSIDE RECORDS SUMMARY | 2024-08-02 07:24 | XMS_ITS | Clinical Summary ---
Author Organization [facility] Address [address] [place] [address] Care Team Providers Care Straight Line Press Setter Name Role Phone Jefe Obregon MD Primary Care Provider [phone] Allergies Active Allergy Reactions Criticality Noted Date [...] 07/16/2016 Encounter for annual routine [facility]necological exami [facility] 04/22/2016 Abdominal pain, left lower quadrant 04/18/2015 [...] this topic Medical Devices Implanted Type Area Management Manager Device Identifier Shelf Expiration Date Model / Serial / Lot Lens Tecnis Tecnis Itec Protec Tri-Fix +23.5 Diopter - [id number] - [id number] Implanted:Qty: 1 on 09/12/2020 by Yunier Kidd MD at [facility] Location Lens Left: Eye [email or web address] 08/09/2022 [id number] / [id number] / Lens Tecnis 13mm +22.5 Diopter +1.5 Cylinder Modify - [id number] - [id number] Implanted:Qty: 1 on 09/18/2020 by Yunier Kidd MD at [facility] Location Lens Right: Eye [employer] 08/16/2025 [id number] / [id number] / . Advance Directives For more information, please contact: [phone] Documents on File Type Date Recorded Patient Asphalt Paving Supervisor Expl anation Advance Directive and Living Will 09/05/2013 Care Teams Straight Line Press Setter Relationship Specialty Start Date End Date Jefe Obregon MD [address] [place] [address] [address] [place] [address] PCP - General Accounts Receivable Accountant 04/21/22
--- OUTSIDE RECORDS SUMMARY | 2024-08-02 07:24 | XMS_ITS ---
Author Organization [employer] [facility] Address [address] [place] [address] Care Team Providers Care Test Engine Operator Name Role Phone SYED YUEN M.D. Primary Care Provider RASHEEDA Kaiser Unavailable [phone] REASON FOR VISIT Clobetasol Refill Medications Medication SIG (Take, Route, Frequency, Duration) Notes Start Date End Date Status Clobetasol Propionate 0.05 % 1 application Externally twice weekly for 365 days 09/08/2022 Active Encounters Encounter Location Date Provider Diagnosis [facility] [employer] [employer] [address] [address] 01/08/2024 RASHEEDA HUMPHRIES Lichen sclerosus et atrophicus [...] Details Provider Name:RASHEEDA Chapman, 03/31/2025 02:30:00 PM, [address] [place] [address], [facility] [address], [place], [address], Progress Notes * FREDY HOROWITZOB:1965 ( 58 yo F)Acc No.[id number]:01/08/2024 Patient:?LASHONDA HOROWITZ :1965???Age:58 Y???Sex:Female Address:[address] [place] [address] [place], [address] * Refills? Refill Clobetasol Propionate Ointment, 0.05 %, Externally, 15 grams, 1 application, twice weekly, 365 days, Refills=0 * true * Date:? Generated for Amy marie/Ty/Atulitting on:?08/02/2024 07:23 AM EST
--- OUTSIDE RECORDS SUMMARY | 2024-08-02 07:24 | XMS_ITS | Clinical Summary ---
Author Organization [facility] Address [address] [place] [address] Care Team Providers Care Pipelines Superintendent Name Role Phone Jefe Obregon MD Primary Care Provider [phone] Immunizations Name Administration Dates Next Due Pfizer SARS-CoV-2 COVID-19, mRNA, LNP-S, preservative free 06/05/2020,05/18/2020 Surgical History Surgery Date Site/Laterality Comments APPENDECTOMY age 15 PROCEDURE: HISTORICAL APPENDECTOMY TONSILLECTOMY age 8 PROCEDURE: HISTORICAL TONSILLECTOMY OTHER SURGICAL HISTORY age 25 PROCEDURE: RI EXC CYST/ABERRANT BREAST TISSUE OPEN 1/> LESION; COMMENT: benign, right breast fibrocystic OTHER SURGICAL HISTORY 2009 PROCEDURE: RI ENDOMETRIAL BX W/WO ENDOCERVIX BX W/O DILAT SPX; COMMENT: negative COLONOSCOPY 2004 or 2005 PROCEDURE: HISTORICAL COLONOSCOPY; COMMENT: [facility] [place] ESOPHAGOGASTRODUODENOSCOPY PROCEDURE: [place] ESOPHAGOGASTRODUODENOSCOPY TRANSORAL DIAGNOSTIC Family History Medical History [...] this topic Medical Devices Implanted Type Area Avionics Systems Repairer Device Identifier Shelf Expiration Date Model / Serial / Lot Lens Tecnis Tecnis Itec Protec Tri-Fix +23.5 Diopter - [id number] - [id number] Implanted:Qty: 1 on 09/12/2020 by Yunier Kidd MD Implants Left: Eye [employer] 08/09/2022 [id number] / [id number] / Lens Tecnis 13mm +22.5 Diopter +1.5 Cylinder Modify C - [id number] - [id number] Implanted:Qty: 1 on 09/18/2020 by Yunier Kidd MD Implants Right: Eye [employer] 08/16/2025 [id number] / [id number] / . Procedures Procedure Name Priority Date/Time [...] on 03/29/2021 1:12 PM. Workstation Name - [id number] Procedure Note Kurt Liu MD - 05/24/2022 [...] MD on 03/29/2021 1:12PM. Workstation Name - [id number] us Heidy Gaytan CNM IMG BI PROCEDURES Final Res ult * Pap smear (09/06/2018 12:00 AM EDT) Case Results Patient Name: MONICA HALL MR#: [id number] Collected Date: 09/06/2018 Reported Date: 09/08/2018 Specimen #[id number] Final Diagnosis Satisfactory for evaluation. ??Endocervical transformation [...] System unless otherwise stated. Test Performed by: [address] ??[address] Jb Soler Jr., M.D., [facility], Director HISTORICAL TESTING LAB RESULTING AGENCY Comment:MR#: [id number] 09/06/2018 Greta Boyer MD LAB CYTOLOGY ORDERABLES Edited Result - Final HISTORICAL TESTING LAB RESULTING AGENCY from Last 3 Months or Most Recently Relevant to Health Maintenance Care Teams Pipelines Superintendent Relationship Specialty Start Date End Date Jefe Obregon MD [address] [place] [address] Dr Byron [place] PCP - General 04/21/22
--- OUTSIDE RECORDS SUMMARY | 2024-08-02 07:24 | XMS_ITS ---
Author Organization [facility] Address [address] [address] Care Team Providers Care Marketing Development Representative Name Role Phone SYED YUEN M.D. Primary Care Provider RASHEEDA Kaiser Unavailable [phone] Allergies Allergen (clinical drug ingredient) Drug/Non Drug Allergy documented on EMR Reaction Allergy Type Onset Date Status mirabegron Myrbetriq hives Drug Allergy Active morphine Morphine hives Drug Allergy Active REASON FOR VISIT Annual COLLEGE RECRUITER Physical Medications Medication SIG (Take, Route, Frequency, [...] 03/28/2024 Encounters Encounter Location Date Provider Diagnosis [facility] [employer] [address] 03/28/2024 RASHEEDA HUMPHRIES Encounter for gynecological examination [...] Follow Up: 1 Year, Reason: Y early Solutions Sales Consultant Exam Provider Name:RASHEEDA HUMMEL Ari, 03/31/2025 02:30:00 PM, [address], [address], [place], [address], Progress Notes * OPHELIA HOROWITZ:1965 ( 59 yo F)Acc No.[id number]:03/28/2024 PROGRESS NOTES Patient:MONICA HOGUE Provider:?RASHEEDA HUMPHRIES MD :1965???Age:59 Y???Sex:Female D ate:03/28/2024 Address:[address] [place], [place] [address] Pcp:SYED YUEN M.D. Subjective: * Chief Complaints: * ???Annual COLLEGE RECRUITER Physical * HPI: ???Constitutional:?Monica is a 59yo who presents for her yearly obgyn hospitalist physician exam. ?She has been in state of [...] has an allergy. She was referred to [facility]. She reports she has been on a medication that helps to stop the incontinence (can't recall name) and it has been working well. ?She has received the globa.ly Covid-19 vaccine. ?She uses Clobetasol for lichen [...] x 6-7 days/week by walking. * ROS:?Annual Solutions Sales Consultant Exam ROS:?Bowel habit changes?denies.?Bladder symptoms?denies.?Vaginal discharge, unusual?denies.?Vaginal itch or odor?denies.?weight or appetite changes?denies.?Chest pains, SOB?denies.?depression? admits,?denies HI/SI.?Breast:?Denies?Breast lump.?Denies?Nipple discharge.?Hematology:?Denies?Swollen glands.?Skin:?Patient complaining of?changing moles near the lateral aspect of the right eye.?Psychiatric:?Admits?Anxiety,?sees a psychologist with good effect.? * Medical History:? * Solutions Sales Consultant History:?/ Para?2/2.?Sexual activity?not currently sexually active.?Last Pap Smear:?03/04/23 NIL, NEG HPV, 08/2018 - NIL; 04/2016 - HR HPV Neg (LLS viewed on My Chart).?Mammogram:?06/05/23 < 50% density, 05/02/22.?Abnormal Pap Smear:?no history of abnormal pap smears.?LMP and menses?menopause.?History of STD's:?none.?Menarche?15.?Colonoscopy?10/25/21.?Bone Density:?[facility].?*Hep B Vac?2005.? * OB History:?Total pregnancies?2.?Total living children?2.?NVD?2.? * Surgical History:?Appendecto my 10/1980Tonsillectomy 1970sBilateral tubal ligation 1997 * Hospitalization/Major Diagno stic Procedure:?Childbirth Diverticulitis [facility] 06/2021 * Family History:?Mother: dece ased 83 yrs, dementia, fx hip.?Father: 64 yrs, Multiple Myeloma; from [place].? Sister: DM,HTN Brother: Heart S/P Valve Replacement. [...] with: spouse. ?Marital status: , Benjamin. 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 ?Pets: dogs: 1 rescue (herder of some [...] no acute distress, well developed, well nourished, educational programming director present in room.?HEAD:?normocephalic, atraumatic.?NECK/THYROID:?neck supple, full range [...] muscle mass and strength. 'Sarco' is the Latvian word referring to flesh, and 'penia' means [...] * Follow Up:?1 Year (Reason: Y early Solutions Sales Consultant Exam) * Images: Billing Information: * Visit Code:? 02827 Preventive Care Est Pt. Age 40-64. * Procedure Codes:? * Sign off status: Completed true * Provider:?RASHEEDA HUMPHRIES MD Date:?2023 Generated for Amy marie/Ty/Atulitting on:?08/02/2024 07:24 AM EST History and Physical Notes * HPI (History of Present Illness) Category Sub-Category Detail Notes Category Not es Constitutional Monica is a 59yo who presents for her yearly obgyn hospitalist physician exam. She has been in state of [...] has an allergy. She was referred to [facility]. She reports she has been on [...] General Examination GENERAL APPEARANCE: in no ac little traverse distress, well developed, well nourished, educational programming director present in room HEAD: normocephalic, atrau matic [...]
[2024-08-23 10:48] VITALS: BMI 27.8
--- NOTE | 2024-08-24 08:58 | HO.ANESPROP2 ---
Documented by User: Miriam Cyr NP 08/24/24 09:01 HPI - Anesthesia Eval Consult details Narrative: 59yo F for Colonoscopy Cardiac optimized. Follows [facility] for family hx of CAD PMFSH Active Problems Active Problems: All Active Problems Preoperative cardiovascular examination (Acute) Sinusitis (Acute) Joint pain (Acute) Smoking (Acute) Family history of premature coronary artery disease (Acute) Vascular calcification (Acute) Mixed stress and urge urinary incontinence (Acute) Abnormal stress test (Acute) Rash (Acute) Hyperlipidemia (Acute) Past Medical History Medical History (Updated 08/23/24 @ 10:47 by Renae Haas RN) Multiple sclerosis Fibrocystic changes of right breast (~1989) Hyperlipidemia Family History Family History Father History of quadruple bypass Multiple myeloma Diabetes Heart attack Brother Aortic valve replaced Surgical History Surgical History (Updated 08/23/24 @ 10:48 by Renae Haas RN) Hx of bilateral cataract extraction History of tubal ligation History of appendectomy Social History Social History Alcohol intake: never Patient Tobacco Use Status: Current everyday Tobacco user Have you been hit, kicked, punched, or otherwise hurt by someone within the past year? If so, by whom?: No Are you DNR?: No Advance Directives: No Advance Directives Information Provided: Yes Meds Allergies Allergy/AdvReac Type Severity Reaction Status Date / Time mirabegron [From Myrbetriq] Allergy Intermediate Hives Verified 08/01/24 14:07 midazolam [From Versed] AdvReac Intermediate Rash Verified 08/01/24 14:07 morphine AdvReac Intermediate Unknown Verified 08/01/24 14:07 Home Medications ?Medication ?Instructions ?Recorded ?Confirmed ?Last Taken ?Type escitalopram oxalate 20 mg tablet 20 mg PO DAILY 01/13/23 06/15/24 Unknown History B.coagulans 2 billion cap PO 07/22/23 06/15/24 Unknown History cell-digestive enzymes combo no.10 capsule (Digestive Advantage Probiotics Plus Gas) Exam Height,Weight and Vital Signs: Height 5 ft 1 in Weight 66.678 kg Narrative Narrative: Per Cardiac testing Exercise stress echocardiogram- >10 METS with some borderline ST-T changes, but again no angina and the echocardiographic portion was also unremarkable. Overall, normal study. In the transthoracic echocardiogram, LVEF 55-60% with normal diastolic filling and otherwise unremarkable. Calcium score was 0 in 2018. Repeated in 2023 and again 0. EKG 06/2024 Details: EKG with underlying sinus rhythm at 75/Min; no significant ST-T changes and otherwise unremarkable. Normal AR and corrected QT. Assessment and Plan Assessment Anesthesia Assessment: Chart Reviewed Documented by User: Be Fox MD 08/25/24 07:55 [facility] Past Medical History Medical History (Updated 08/23/24 @ 10:47 by Renae Haas RN) Multiple sclerosis Fibrocystic changes of right breast (~1989) Hyperlipidemia Family History Family History Father History of quadruple bypass Multiple myeloma Diabetes Heart attack Brother Aortic valve replaced Family history of problems with anesthesia: No Surgical History Surgical History (Updated 08/23/24 @ 10:48 by Renae Haas RN) Hx of bilateral cataract extraction History of tubal ligation History of appendectomy History of Problems with Anesthesia: No Social History Social History Alcohol intake: never Patient Tobacco Use Status: Current everyday Tobacco user Have you been hit, kicked, punched, or otherwise hurt by someone within the past year? If so, by whom?: No Are you DNR?: No Advance Directives: No Advance Directives Information Provided: Yes Meds Allergies Allergy/AdvReac Type Severity Reaction Status Date / Time mirabegron [From Myrbetriq] Allergy Intermediate Hives Verified 08/01/24 14:07 midazolam [From Versed] AdvReac Intermediate Rash Verified 08/01/24 14:07 morphine AdvReac Intermediate Unknown Verified 08/01/24 14:07 Home Medications ?Medication ?Instructions ?Recorded ?Confirmed ?Last Taken ?Type escitalopram oxalate 20 mg tablet 20 mg PO DAILY 01/13/23 06/15/24 Unknown History B.coagulans 2 billion cap PO 07/22/23 06/15/24 Unknown History cell-digestive enzymes combo no.10 capsule (Digestive Advantage Probiotics Plus Gas) Exam Narrative Narrative: iPer Cardiac testing Exercise stress echocardiogram- >10 METS with some borderline ST-T changes, but again no angina and the echocardiographic portion was also unremarkable. Overall, normal study. In the transthoracic echocardiogram, LVEF 55-60% with normal diastolic filling and otherwise unremarkable. Calcium score was 0 in 2018. Repeated in 2023 and again 0. EKG 06/2024 Details: EKG with underlying sinus rhythm at 75/Min; no significant ST-T changes and otherwise unremarkable. Normal AR and corrected QT. Airway Mallampati Class: III TM Dist: >3cm Neck ROM: Full Assessment and Plan Assessment Anesthesia Assessment: Anesthesia Plan Discussed Final Anesthetic Review Family History of Problems with Anesthesia: No History of Problems with Anesthesia: No NPO: Yes ASA Class: III Final Preanesthetic Review: No Changes in Pt Med Stat, Meds/Allgs Chart Reviewed, Consent Obtained/Reviewed and Anes Risks/Benef Reviewed Patient Risk: Intermediate Procedure Risk: Low Anesthetic Plan Anesthetic Plan: TIVA Disposition: Standard PACU
[2024-08-25 07:06] VITALS: BP 113/61; PULSE 83; RESP 18; TEMP 36.4; O2SAT 95; BMI 27.2
[2024-08-25] MEDS: Lactated Ringers 1,000 ML 100 ML IVCONT (07:22)
--- NOTE | 2024-08-25 08:13 | MHC.SHP ---
Pre-Procedural Eval Section A - 24 Hr Update-Section A only Date of Service: 08/25/24 Section B - Complete if H&P > 30 days Chief Complaint: screening Relevant Family History (Specify if Yes): No Relevant Social History: Tobacco Use Present Medications: see Short Stay Collaborative assessment Medical History: Significant History (Multiple sclerosis Fibrocystic changes of right breast (~1989) Hyperlipidemia) History of Previous Operations: Relevant previous surgery/procedure and date(s) (Hx of bilateral cataract extraction History of tubal ligation History of appendectomy) Allergies: Allergies Allergy/AdvReac Type Severity Reaction Status Date / Time mirabegron [From Myrbetriq] Allergy Intermediate Hives Verified 08/01/24 14:07 midazolam [From Versed] AdvReac Intermediate Rash Verified 08/01/24 14:07 morphine AdvReac Intermediate Unknown Verified 08/01/24 14:07 Review of Systems Sugical H&P ROS: Negative: Constitution, Cardiovascular, Respiratory, Neurological, Psychiatric, Hem-Onc, Allergic/Immunologic, Gastrointestinal, Genitourinary, Musculoskeletal, Integumentary, Endocrine and Eyes/Ears/Nose/Throat Exam Surgical H&P Exam: Normal: HEENT, Normal: Heart, Normal: Lungs, Normal: Extremities, Normal: Abdomen, Normal: Skin and Normal: Neurological Plan Diagnosis/Plan: Unchanged I have reviewed the history and physical and performed a pertinent physical examination on my patient. No changes have occurred unless specified. Time Spent With Patient Time: Total time managing care of this patient today ____ minutes.
--- NOTE | 2024-08-25 09:17 | HO.OPN-COLON ---
Colonoscopy Operative Note Operative Note Date of Service: 08/25/24 Narrative: Operative Information Procedure Description: Colonoscopy Indication: screening Anesthesia: MAC COLONOSCOPY Instrument: Olympus variable stiffness pediatric scope 190L Colonoscopy Monitoring: Vital signs and clinical assessment, continuous EKG monitoring, Pulse oximetry, Carbon Dioxide monitoring and blood pressure monitoring were done throughout the procedure. Colon withdrawal time was 10 minutes. Procedure: The patient was placed in the left lateral decubitis position and pre-procedure medications were administered. After a digital rectal examination of the ano-rectum, the video colonoscope was inserted into the rectum and advanced through the colon to the cecum/TI. The colonoscope was slowly withdrawn in a retrograde panoramic fashion and the colon mucosa was carefully examined including a retroflexed view of the rectum. Findings and interventions are described below. Procedure Difficulty: moderate, pressure applied Findings: Terminal Ileum- unable to intubate due to looping Cecum:normal Ascending Colon: x1 sessile 5-7 mm removed with cold snare Transverse Colon -normal Descending Colon:normal Sigmoid Colon: moderate diverticulosis Rectum: Retroflexion with small internal hemorrhoids seen, grade I, x 2 sessile polyps 4-5 mm removed with cold forceps Anorectum - normal Intervention: cold forceps, cold snare Colon preparation: [place] Bowel Preparation Scale Right colon; 2 Transverse colon: 2 Left colon; 2 (0 = Unprepared colon segment with mucosa not seen due to solid stool that cannot be cleared. 1 = Portion of mucosa of the colon segment seen, but other areas of the colon segment not well seen due to staining, residual stool and/or opaque liquid. 2 = Minor amount of residual staining, small fragments of stool and/or opaque liquid, but mucosa of colon segment seen well. 3 = Entire mucosa of colon segment seen well with no residual staining, small fragments of stool or opaque liquid) Impression and Post Procedure Diagnosis: diverticulosis colon polyps internal hemorrhoids Plan: High fiber diet leaflet Avoid straining at stool, epsom salts and sitz bath, anusol supps or cream Repeat Colonoscopy in 4-5 years if adenomatous polyps, 10 yrs if hyperplastic or earlier if clinically indicated Above findings were reviewed with the patient and relevant handouts were provided if indicated.
[2024-08-25 09:24] VITALS: BP 96/62; PULSE 72; RESP 12; TEMP 36.8; O2SAT 98
[2024-08-25 09:39] VITALS: BP 107/67; PULSE 65; RESP 18; O2SAT 97
== END 2024-08-25 10:03 | disposition home or self-care (01) ==
PROVIDERS: PCP Internal Medicine; Visit Provider Internal Medicine Gastroenterology
PROC: 0DJD8ZZ Inspection of Lower Intestinal Tract, Via Natural or Artificial Opening Endoscopic (ICD-10-PCS; CPT 45378; principal; 2024-08-25 09:10)
DX: Z12.11 Encounter for screening for malignant neoplasm of colon (principal); D12.2 Benign neoplasm of ascending colon; K62.1 Rectal polyp; K57.30 Diverticulosis of large intestine without perforation or abscess without bleeding; K64.0 First degree hemorrhoids; G35 Multiple sclerosis; N60.11 Diffuse cystic mastopathy of right breast; E78.5 Hyperlipidemia, unspecified; Z82.49 Family history of ischemic heart disease and other diseases of the circulatory system; Z79.899 Other long term (current) drug therapy; Z88.5 Allergy status to narcotic agent; Z88.8 Allergy status to other drugs, medicaments and biological substances; Z98.890 Other specified postprocedural states; F17.210 Nicotine dependence, cigarettes, uncomplicated
CPT/HCPCS: 45385; 45380; 88305; J2003; J2704

== ENCOUNTER → 2024-08-25 07:03 | Outpatient (BNV) | payer OTHER, SELFPAY | PROVIDERS: PCP Internal Medicine; Visit Provider Internal Medicine Gastroenterology | DX: Z12.11 Encounter for screening for malignant neoplasm of colon (principal); K63.5 Polyp of colon; K62.1 Rectal polyp; K57.30 Diverticulosis of large intestine without perforation or abscess without bleeding; K64.0 First degree hemorrhoids | CPT/HCPCS: 45380; 45385 ==

== ENCOUNTER 2024-09-27 08:02 | Outpatient (AMB) | payer OTHER, SELFPAY ==
--- OUTSIDE RECORDS SUMMARY | 2024-09-27 08:07 | XMS_ITS | Patient Health Record ---
Author Organization [employer] [facility] Address [address] [place] [address] Care Team Providers Care Inspector Glass Or Mirror Name Role Phone SYED YUEN M.D. 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) Lichen sclerosus et atrophicus (L90.0) Active confirmed Problem COVID-19 (028136238) COVID-19 (U07.1) Active confirmed Vital Signs Temperature 98.0 degrees Fahrenheit 03/28/2024 Blood pressure diastolic 70 mm Hg 03/28/2024 Height 61 in 03/28/2024 Blood pressure systolic 120 mm Hg 03/28/2024 Weight 149 lbs 03/28/2024 BMI 28.15 kg/m2 03/28/2024 Encounters Encounter Location Date Provider Diagnosis [facility] [address] [employer] [address] [address] 03/28/2024 RASHEEDA HUMPHRIES Encounter for gynecological examination (general) (routine) without abnormal findings Z01.419 ; Encounter for screening mammogram for malignant neoplasm of breast Z12.31 and Lichen sclerosus et atrophicus L90.0 [facility] [address] [address] 01/08/2024 RASHEEDA HUMPHRIES Lichen sclerosus et atrophicus [...] Name:RASHEEDA HUMMEL Ari, 03/31/2025 02:30:00 PM, [address] [facility], [address], [place], [address], Insurance Providers Payer Name Payer Address Payer Phone Subscriber Number Group Number Insured Name Patient Relationship to Insured Coverage Start Date Coverage End Date [employer] [place] [address] [address] [place] [address] [id number] LASHONDA HOROWITZ Self - patient is the insured Medical (General) History Medical History History ICD Code Major depressive disorder, recurrent, mi ld F33.0 Hyperlipidemia, unspecified E78.5 COVID-19 U07.1 Lichen sclerosus et atrophicus L90.0 Surgical History Surgery Date(Month/Year) Appendectomy 10/1980 Tonsillectomy 1969' Bilateral tubal ligation 1997 Hospitalization History Reason Date(Month/Year) Diverticulitis [facility] 06/2021 Childbirth
--- OUTSIDE RECORDS SUMMARY | 2024-09-27 08:07 | XMS_ITS ---
Author Organization [facility] Address [address] [facility] [address] [place] [address] Care Team Providers Care Rouge Sifter And Miller Name Role Phone SYED YUEN M.D. Primary Care Provider RASHEEDA Kaiser Unavailable [phone] REASON FOR VISIT [place] [facility] Encounters Encounter Location Date Provider Diagnosis [facility] [address] [place] [address] 04/07/2023 RASHEEDA HUMPHRIES Plan Of Treatment Next Appt Details Provider Name:RASHEEDA Chapman, 03/31/2025 02:30:00 PM, [address] [place] [address], [address], [place], [address], Progress Notes * FREDY HOROWITZOB:1965 ( 58 yo F)Acc No.[id number]:04/07/2023 Patient:?ZACH HOROWITZRA :1965???Age:58 Y???Sex:Female Address:[address] [place] [address], [address] * true * Date:? Generated for Printi ng/Fathaddeusg/eTransmitting on:?09/27/2024 08:07 AM EDT
--- OUTSIDE RECORDS SUMMARY | 2024-09-27 08:08 | XMS_ITS ---
Author Organization [facility] Address [address] [place] [address] Care Team Providers Care Android Programmer Name Role Phone SYED YUEN M.D. Primary Care Provider RASHEEDA Kaiser Unavailable [phone] REASON FOR VISIT Clobetasol Refill Medications Medication SIG (Take, Route, Frequency, Duration) Notes Start Date End Date Status Clobetasol Propionate 0.05 % 1 application Externally twice weekly for 365 days 09/08/2022 Active Encounters Encounter Location Date Provider Diagnosis [facility] [address] [address] 01/08/2024 RASHEEDA HUMPHRIES Lichen sclerosus et atrophicus [...] Details Provider Name:RASHEEDA Chapman, 03/31/2025 02:30:00 PM, [address] [place] [address], [facility] [address], [place], [address], Progress Notes * FREDY HOROWITZOB:1965 ( 58 yo F)Acc No.[id number]:01/08/2024 Patient:?LASHONDA HOROWITZ :1965???Age:58 Y???Sex:Female Address:[address] [place] [address] [place], [address] * Refills? Refill Clobetasol Propionate Ointment, 0.05 %, Externally, 15 grams, 1 application, twice weekly, 365 days, Refills=0 * true * Date:? Generated for Amy marie/Ty/Atulitting on:?09/27/2024 08:08 AM EDT
--- OUTSIDE RECORDS SUMMARY | 2024-09-27 08:08 | XMS_ITS | Clinical Summary ---
Author Organization [facility] Address [address] [place] [address] Care Team Providers Care Deicer Repairer Electric Name Role Phone Jefe Obregon MD Primary Care Provider [phone] Allergies Active Allergy Reactions Criticality Noted Date [...] 07/16/2016 Encounter for annual routine [facility]necological exami [facility] 04/22/2016 Abdominal pain, left lower quadrant 04/18/2015 [...] this topic Medical Devices Implanted Type Area Auto Technician Device Identifier Shelf Expiration Date Model / Serial / Lot Lens Tecnis Tecnis Itec Protec Tri-Fix +23.5 Diopter - [id number] - [id number] Implanted:Qty: 1 on 09/12/2020 by Yunier Kidd MD at Location Lens Left: Eye [employer] 08/09/2022 [id number] / [id number] / Lens Tecnis 13mm +22.5 Diopter +1.5 Cylinder Modify - [id number] - [id number] Implanted:Qty: 1 on 09/18/2020 by Yunier Kidd MD at Location Lens Right: Eye [employer] 08/16/2025 [id number] / [id number] / . Advance Directives For more information, please contact: [phone] Documents on File Type Date Recorded Patient Sr. Merchandise Planner Expl anation Advance Directive and Living Will 09/05/2013 Care Teams Deicer Repairer Electric Relationship Specialty Start Date End Date Jefe Obregon MD [address] [place] [address] [address] [place] [address] PCP - General Etl Database Developer 04/21/22
--- OUTSIDE RECORDS SUMMARY | 2024-09-27 08:08 | XMS_ITS ---
Author Organization [facility] Address [address] [address] Care Team Providers Care Towboat Pilot Name Role Phone SYED YUEN M.D. Primary Care Provider RASHEEDA Kaiser Unavailable [phone] Allergies Allergen (clinical drug ingredient) Drug/Non Drug Allergy documented on EMR Reaction Allergy Type Onset Date Status mirabegron Myrbetriq hives Drug Allergy Active morphine Morphine hives Drug Allergy Active REASON FOR VISIT Annual COST ESTIMATOR Physical Medications Medication SIG (Take, Route, Frequency, [...] 03/28/2024 Encounters Encounter Location Date Provider Diagnosis [facility] [address] [address] 03/28/2024 RASHEEDA HUMPHRIES Encounter for gynecological examination [...] Follow Up: 1 Year, Reason: Y early Green Inspector Exam Provider Name:RASHEEDA HUMMEL Ari, 03/31/2025 02:30:00 PM, [address], [address], [place], [address], Progress Notes * OPHELIA HOROWITZ:1965 ( 59 yo F)Acc No.[id number]:03/28/2024 PROGRESS NOTES Patient:MONICA HOGUE Provider:?RASHEEDA HUMPHRIES MD :1965???Age:59 Y???Sex:Female D ate:03/28/2024 Address:[address] [place], [place] [id number] Pcp:SYED YUEN M.D. Subjective: * Chief Complaints: * ???Annual COST ESTIMATOR Physical * HPI: ???Constitutional:?Monica is a 59yo who presents for her yearly stator winder exam. ?She has been in state of [...] has an allergy. She was referred to [facility]. She reports she has been on a medication that helps to stop the incontinence (can't recall name) and it has been working well. ?She has received the [employer] Covid-19 vaccine. ?She uses Clobetasol for lichen [...] x 6-7 days/week by walking. * ROS:?Annual Green Inspector Exam ROS:?Bowel habit changes?denies.?Bladder symptoms?denies.?Vaginal discharge, unusual?denies.?Vaginal itch or odor?denies.?weight or appetite changes?denies.?Chest pains, SOB?denies.?depression? admits,?denies HI/SI.?Breast:?Denies?Breast lump.?Denies?Nipple discharge.?Hematology:?Denies?Swollen glands.?Skin:?Patient complaining of?changing moles near the lateral aspect of the right eye.?Psychiatric:?Admits?Anxiety,?sees a psychologist with good effect.? * Medical History:? * Green Inspector History:?/ Para?2/2.?Sexual activity?not currently sexually active.?Last Pap Smear:?03/04/23 NIL, NEG HPV, 08/2018 - NIL; 04/2016 - HR HPV Neg (LLS viewed on My Chart).?Mammogram:?06/05/23 < 50% density, 05/02/22.?Abnormal Pap Smear:?no history of abnormal pap smears.?LMP and menses?menopause.?History of STD's:?none.?Menarche?15.?Colonoscopy?10/25/21.?Bone Density:?[facility].?*Hep B Vac?2005.? * OB History:?Total pregnancies?2.?Total living children?2.?NVD?2.? * Surgical History:?Appendecto my 10/1980Tonsillectomy 1970sBilateral tubal ligation 1997 * Hospitalization/Major Diagno stic Procedure:?Childbirth Diverticulitis 06/2021 * Family History:?Mother: dece ased 83 yrs, dementia, fx hip.?Father: 64 yrs, Multiple Myeloma; from [place].? Sister: DM,HTN Brother: Heart S/P Valve Replacement. [...] with: spouse. ?Marital status: , Benjamin. 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 ?Pets: dogs: 1 rescue (herder of [...] no acute distress, well developed, well nourished, cost estimator present in room.?HEAD:?normocephalic, atraumatic.?NECK/THYROID:?neck supple, full range [...] muscle mass and strength. 'Sarco' is the Kiswahili word referring to flesh, and 'penia' means [...] * Follow Up:?1 Year (Reason: Y early Green Inspector Exam) * Images: Billing Information: * Visit Code:? 32942 Preventive Care Est Pt. Age 40-64. * Procedure Codes:? * Sign off status: Completed true * Provider:?RASHEEDA HUMPHRIES MD Date:?2023 Generated for Amy marie/Ty/Atulitting on:?09/27/2024 08:08 AM EDT History and Physical Notes * HPI (History of Present Illness) Category Sub-Category Detail Notes Category Not es Constitutional Monica is a 59yo who presents for her yearly stator winder exam. She has been in state of [...] has an allergy. She was referred to [facility]. She reports she has been on [...] General Examination GENERAL APPEARANCE: in no ac hoonah distress, well developed, well nourished, cost estimator present in room HEAD: normocephalic, atrau matic [...]
--- OUTSIDE RECORDS SUMMARY | 2024-09-27 08:08 | XMS_ITS | Clinical Summary ---
Author Organization [facility] Address [address] [place] [address] Care Team Providers Care Commercial Horticulture Instructor Name Role Phone Jefe Obregon MD Primary Care Provider [phone] Immunizations Name Administration Dates Next Due Pfizer SARS-CoV-2 COVID-19, mRNA, LNP-S, preservative free 06/05/2020,05/18/2020 Surgical History Surgery Date Site/Laterality Comments APPENDECTOMY age 15 PROCEDURE: HISTORICAL APPENDECTOMY TONSILLECTOMY age 8 PROCEDURE: HISTORICAL TONSILLECTOMY OTHER SURGICAL HISTORY age 25 PROCEDURE: [place] EXC CYST/ABERRANT BREAST TISSUE OPEN 1/> LESION; COMMENT: benign, right breast fibrocystic OTHER SURGICAL HISTORY 2009 PROCEDURE: [place] ENDOMETRIAL BX W/WO ENDOCERVIX BX W/O DILAT SPX; COMMENT: negative COLONOSCOPY 2004 or 2005 PROCEDURE: HISTORICAL COLONOSCOPY; COMMENT: [facility] [place] ESOPHAGOGASTRODUODENOSCOPY PROCEDURE: [place] ESOPHAGOGASTRODUODENOSCOPY TRANSORAL DIAGNOSTIC Family History Medical History [...] Breast Cancer Screening 03/27/2023 03/27/20, 12/13/2019, 06/16/2018 Influenza Vaccine (Season Ended) 2025 02/28/2020 Cholesterol Screening (Lipid Panel) 06/14/2027 06/14/2022, 11/08/2021, 03/23/2021, Additional history exists RSV Immunization Adult Patients (1 - 1-dose 75+ series) 2038 HIB [...] age to complete this topic Meningococcal B Vaccine Aged Out No l onger eligible based on patient's age to complete this topic RSV Immunization Patients Under 20 months Aged Out No longer eligible based on patient's age to complete this topic Varicella Vaccines Aged Out No longer eligible based on patient's age to complete this topic Medical Devices Implanted Type Area Client Engagement Manager Device Identifier Shelf Expiration Date Model / Serial / Lot Lens Tecellyn Tecellyn Itec Protec Tri-Fix +23.5 Diopter - [id number] - [id number] Implanted:Qty: 1 on 09/12/2020 by Yunier Kidd MD Implants Left: Eye [employer] 08/09/2022 [id number] / [id number] / Lens Tecnis 13mm +22.5 Diopter +1.5 Cylinder Modify C - [id number] - [id number] Implanted:Qty: 1 on 09/18/2020 by Yunier Kdid MD Implants Right: Eye [employer] 08/16/2025 [id number] / [id number] / . Procedures Procedure Name Priority Date/Time [...] on 03/29/2021 1:12 PM. Workstation Name - [id number] Procedure Note Kurt Liu MD - 05/24/2022 [...] MD on 03/29/2021 1:12PM. Workstation Name - [id number] us Heidygulshan Gaytan CNM IMG BI PROCEDURES Final Res ult * Pap smear (09/06/2018 12:00 AM EDT) Case Results Patient Name: MONICA HALL MR#: [id number] Collected Date: 09/06/2018 Reported Date: 09/08/2018 Specimen #[id number] Final Diagnosis Satisfactory for evaluation. ??Endocervical transformation [...] System unless otherwise stated. Test Performed by: [address] ??[address] Jb Soler Jr., M.D., [facility], Director HISTORICAL TESTING LAB RESULTING AGENCY Comment:MR#: [id number] 09/06/2018 us Greta Boyer MD LAB CYTOLOGY ORDERABLES Edited Result - Final HISTORICAL TESTING LAB RESULTING AGENCY from Last 3 Months or Most Recently Relevant to Health Maintenance Care Teams Commercial Horticulture Instructor Relationship Specialty Start Date End Date Jefe Obregon MD [address] [place] [address] Dr Byron [place] PCP - General 04/21/22
--- OUTSIDE RECORDS SUMMARY | 2024-09-27 08:08 | XMS_ITS | Encounter Summary ---
Author Organization [facility] Address [address] [place] [address] Care Team Providers Care Shield Operator Name Role Phone Jefe Obregon MD Primary Care Provider [phone] Encounter Details Date Type Department Care Team Description 08/09/2021 [place] [address] Susan Figueroa [address] [place] [address] Social History Tobacco Use Types Packs/Day Years [...] on filedocumented in this encounter Care Teams Shield Operator Relationship Specialty Start Date End Date Jefe Obregon MD [address] [place] [address] Dr [address] [place] [address] PCP - General Claim Analyst 04/21/22 documented as of this encounter
--- NOTE | 2024-09-27 08:29 | MHC.OFFWIV ---
Intake Vital Signs 09/27/24 08:30 Weight 144 lb BP 122/80 Blood Pressure Location Lt brachial Position Sitting Pulse 84 Pulse Source Pulse Oximeter Temp 98.8 F Temp Source Oral Pulse Oximetry (%) 98 Oxygen Delivery Method Room Air Intake Visit Reasons: EP ?Sinus infection/flu Intake Note: Patient here for sinus congestion, chills, chest and back tightness and headaches that has been present since thursday Patient Tobacco Use Status: Current everyday Tobacco user Allergies mirabegron [From Myrbetriq] Allergy (Intermediate, Verified 09/27/24 08:31) Hives midazolam [From Versed] Adverse Reaction (Intermediate, Verified 09/27/24 08:31) Rash morphine Adverse Reaction (Intermediate, Verified 09/27/24 08:31) Unknown Do you need a note to return to daycare/school/sports/work: Yes HPI HPI Comments History of Present Illness Details History - The patient is a 59-year-old female presenting with worsening allergy symptoms and sinus infection. - Initial symptoms of allergic rhinitis began a couple of weeks ago, managed with allergy medication but progressed to sinusitis over the last week. - The sinusitis is associated with headache and sinus pain exacerbated by sinus pressure and no effective alleviation from current pgen-fmm-wpuryna medications. - The patient experienced a feverish sensation the previous night, with significant heaviness in physical activity leading to shortness of breath. She has pain in her back. - Intermittent wheezing and shortness of breath noted, with a personal and family history of asthma. - There is the absence of cough or nasal congestion. - Previous medications include Tylenol and allergy medicine, but symptoms have escalated despite this regimen. Physical Exam General: Cooperative, healthy appearing, comfortable and no acute distress Orientation/consciousness: Patient oriented x3 Limitations: No limitations Head: Normal to inspection Ears: Hearing grossly normal bilaterally, external ears normal and TM's normal bilaterally Nose: Normal external nose present, Normal nares present and No nasal discharge present Face and sinus: Normal facial exam and Sinuses tender Mouth: Normal oral and palatal mucosa present and moist mucous membranes Throat: Yes tonsils normal, Yes uvula midline. Posterior oropharynx erythema Eyes: Appearance normal, both eyes and all related structures Neck: Normal visual inspection Respiratory: Clear but dim to auscultation bilaterally. Normal respiratory effort, able to speak in complete sentences, Actively coughing, no respiratory distress, not tachypneic, no tripod positioning and no use of accessory muscles Cardiovascular: Regular rate and rhythm. Normal S1 and S2 Skin: No rashes or lesions noted Neuro: Patient oriented x3 Extremities: Normal to inspection and Yes no clubbing, cyanosis or edema [facility] Medical History (Updated 09/27/24 @ 08:45 by Kim Stahl PA-C) Multiple sclerosis Fibrocystic changes of right breast (~1989) Hyperlipidemia Surgical History (Updated 08/23/24 @ 10:48 by Renae Haas RN) Hx of bilateral cataract extraction History of tubal ligation History of appendectomy Family History Father History of quadruple bypass Multiple myeloma Diabetes Heart attack Brother Aortic valve replaced Social History Alcohol intake: never Patient Tobacco Use Status: Current everyday Tobacco user Review of Systems Const All systems reviewed & are unremarkable except as noted in HPI and below Physical Exam Vital Signs: Last Vital Signs Temp 98.8 F 09/27/24 08:30 Pulse 84 09/27/24 08:30 BP 122/80 09/27/24 08:30 Pulse Ox 98 09/27/24 08:30 Oxygen Delivery Method Room Air 09/27/24 08:30 Assessment & Plan Assessment & Plan (1) URI, acute: Code(s): J06.9 - Acute upper respiratory infection, unspecified Plan: VSS, pt well appearing and PE unremarkable dim lung sounds with some back pain and shortness of breath with exertion. Therefore, I will get a CXR. Antibiotics will be prescribed if indicated by chest X-ray findings and infection testing. I will also conduct tests for influenza, COVID-19, and RSV. I will prescribe a Medrol Dosepak to manage acute inflammation, instructing the patient to take the full daily dose each morning to avoid affecting sleep. I recommend Flonase spray and nasal irrigation with a neti pot to relieve sinus symptoms. A work note for three days will be provided, with further extension based on symptom improvement and test outcomes. Patient was informed and verbally consented to the use of an ambient scribe for clinic note documentation during this visit Orders: Orders SARS-CoV2/FLU/RSV Today R09.89 - Other specified symptoms and signs involving the circulatory and respiratory systems XR chest 2V Today R05.9 - Cough, unspecified Medications: New methylprednisolone PO PER PKG DIR for 6 days 21 ea 0RF Coding Level of Care Code Est Pt Level 4 (03632) Diagnoses URI, acute J06.9
[2024-09-27 08:30] VITALS: BP 122/80; PULSE 84; TEMP 37.1; O2SAT 98
== END 2024-09-27 08:45 | disposition home or self-care (01) ==
PROVIDERS: PCP Internal Medicine; Visit Provider Physician Assistant
DX: J06.9 Acute upper respiratory infection, unspecified (principal)

== ENCOUNTER 2024-09-27 08:02 | Outpatient (REF) | payer OTHER, SELFPAY ==
--- NOTE | ~2024-09-27 | XR_ITS ---
EXAMINATION: XR CHEST CLINICAL INFORMATION: R05.9 - Cough, unspecified COMPARISON: None available. TECHNIQUE: 2 views of the chest were obtained. FINDINGS: No significant abnormality is noted involving the heart, lungs, mediastinum, bony thorax or soft tissues. XR/XR chest 2V IMPRESSION: Unremarkable chest examination. Electronically signed by: Mane Tellez MD 09/27/2024 09:29 AM EDT RP
--- OUTSIDE RECORDS SUMMARY | 2024-09-27 09:02 | XMS_ITS | Encounter Summary ---
Author Organization [facility] Address [address] [place] [address] Care Team Providers Care Egg Crater Name Role Phone Jefe Obregon MD Primary Care Provider [phone] Encounter Details Date Type Department Care Team Description 08/09/2021 [place] [address] Susan Figueroa [address] [place] [address] Social History Tobacco Use Types Packs/Day Years [...] on filedocumented in this encounter Care Teams Egg Crater Relationship Specialty Start Date End Date Jefe Obregon MD [address] [place] [address] Dr [address] [place] [address] PCP - General Hydraulic Press Operator 04/21/22 documented as of this encounter
--- OUTSIDE RECORDS SUMMARY | 2024-09-27 09:02 | XMS_ITS | Clinical Summary ---
Author Organization [facility] Address [address] [place] [address] Care Team Providers Care Gastroenterology Teacher Name Role Phone Jefe Obregon MD Primary Care Provider [phone] Allergies Active Allergy Reactions Criticality Noted Date [...] 07/16/2016 Encounter for annual routine gynecological exami [facility] 04/22/2016 Abdominal pain, left lower [...] this topic Medical Devices Implanted Type Area Hospice Massage Therapist Device Identifier Shelf Expiration Date Model / Serial / Lot Lens Tecnis Tecnis Itec Protec Tri-Fix +23.5 Diopter - [id number] - [id number] Implanted:Qty: 1 on 09/12/2020 by Yunier Kidd MD at [facility] Location Lens Left: Eye [employer] 08/09/2022 [id number] / [id number] / Lens Tecnis 13mm +22.5 Diopter +1.5 Cylinder Modify - [id number] - [id number] Implanted:Qty: 1 on 09/18/2020 by Yunier Kidd MD at [facility] Location Lens Right: Eye [employer]EP[employer] 08/16/2025 [id number] / [id number] / . Advance Directives For more information, please contact: [phone] Documents on File Type Date Recorded Patient Junior Brand Manager Expl anation Advance Directive and Living Will 09/05/2013 Care Teams Gastroenterology Teacher Relationship Specialty Start Date End Date Jefe Obregon MD [address] [place] [address] [address] [place] [address] PCP - General Ehr Trainer 04/21/22
--- OUTSIDE RECORDS SUMMARY | 2024-09-27 09:02 | XMS_ITS | Clinical Summary ---
Author Organization [facility] it Address [address] [place] [address] Care Team Providers Care House Painter Name Role Phone Jefe Obregon MD Primary Care Provider [phone] Immunizations Name Administration Dates Next Due Pfizer SARS-CoV-2 COVID-19, mRNA, LNP-S, preservative free 06/05/2020,05/18/2020 Surgical History Surgery Date Site/Laterality Comments APPENDECTOMY age 15 PROCEDURE: HISTORICAL APPENDECTOMY TONSILLECTOMY age 8 PROCEDURE: HISTORICAL TONSILLECTOMY OTHER SURGICAL HISTORY age 25 PROCEDURE: [place] EXC CYST/ABERRANT BREAST TISSUE OPEN 1/> LESION; COMMENT: benign, right breast fibrocystic OTHER SURGICAL HISTORY 2009 PROCEDURE: [place] ENDOMETRIAL BX W/WO ENDOCERVIX BX W/O DILAT SPX; COMMENT: negative COLONOSCOPY 2004 or 2005 PROCEDURE: HISTORICAL COLONOSCOPY; COMMENT: [facility], [place] ESOPHAGOGASTRODUODENOSCOPY PROCEDURE: [place] ESOPHAGOGASTRODUODENOSCOPY TRANSORAL DIAGNOSTIC Family History Medical History [...] this topic Medical Devices Implanted Type Area Adjunct Spanish Instructor Device Identifier Shelf Expiration Date Model / Serial / Lot Lens Tecellyn Tecellyn Itec Protec Tri-Fix +23.5 Diopter - [id number] - [id number] Implanted:Qty: 1 on 09/12/2020 by Yunier Kidd MD Implants Left: Eye [employer] 08/09/2022 [id number] / [id number] / Lens Tecnis 13mm +22.5 Diopter +1.5 Cylinder Modify C - [id number] - [id number] Implanted:Qty: 1 on 09/18/2020 by Yunier Kidd MD Implants Right: Eye [employer] 08/16/2025 [id number] / [id number] / . Procedures Procedure Name Priority Date/Time [...] on 03/29/2021 1:12 PM. Workstation Name - [id number] Procedure Note Kurt Liu MD - 05/24/2022 [...] MD on 03/29/2021 1:12PM. Workstation Name - [id number] us Heidygulshan Gaytan CNM IMG BI PROCEDURES Final Res ult * Pap smear (09/06/2018 12:00 AM EDT) Case Results Patient Name: MONICA HALL MR#: [id number] Collected Date: 09/06/2018 Reported Date: 09/08/2018 Specimen #[id number] Final Diagnosis Satisfactory for evaluation. ??Endocervical transformation zone component present. Partially obscuring inflammation noted. Negative for Intraepithelial Lesion or Malignancy. Clinical Diagnosis Z01.419 Source: A: ThinPrep Imaged Pap Cervical-SC Electronically Signed Out By THERESA uCi(ASCP) Note: The Pap test is a screening test with an inherent false negative rate. Automated prescreening of all liquid based specimens is performed by the ThinPrep Imaging System unless otherwise stated. Test Performed by: [address] ??[address] Jb Soler Jr., M.D., [facility], Director HISTORICAL TESTING LAB RESULTING AGENCY Comment:MR#: [id number] 09/06/2018 us Greta Boyer MD LAB CYTOLOGY ORDERABLES Edited Result - Final HISTORICAL TESTING LAB RESULTING AGENCY from Last 3 Months or Most Recently Relevant to Health Maintenance Care Teams House Painter Relationship Specialty Start Date End Date Jefe Obregon MD [address] [place] [address] Dr Byron MA PCP - General 04/21/22
[2024-09-27 12:55] LABS: Influenza A PCR NEGATIVE (Negative); Influenza B PCR NEGATIVE (Negative); Resp Syncy Virus RNA Qual PCR NEGATIVE (Negative); SARS COV2 PCR INHOUSE NEGATIVE (Negative)
== END 2024-09-27 08:03 | disposition home or self-care (01) ==
LOC: HO.HMGCX 08:02
PROVIDERS: PCP Internal Medicine; Visit Provider Physician Assistant
DX: R05.9 Cough, unspecified (principal); R09.89 Other specified symptoms and signs involving the circulatory and respiratory systems; J06.9 Acute upper respiratory infection, unspecified
CPT/HCPCS: 0241U; 71046

== ENCOUNTER → 2024-09-27 08:53 | Outpatient (BNV) | payer OTHER, SELFPAY | PROVIDERS: PCP Internal Medicine; Visit Provider Radiology Diagnostic Radiology | DX: R05.9 Cough, unspecified (principal) | CPT/HCPCS: 71046 ==

== ENCOUNTER 2024-10-31 14:12 | Outpatient (AMB) | payer OTHER, SELFPAY ==
--- NOTE | 2024-10-31 14:21 | A.OFFVIS_ITS ---
Intake Visit Reasons: 6M pvr Intake Note: Patient presents today for follow up visit for Urinary Incontinence Urology Medications: none Blood Thinner: none PVR: 0 ml's Client Manager Required: No Accompanied by: Self / Same As Patient Allergies mirabegron [From Myrbetriq] Allergy (Intermediate, Verified 10/31/24 16:36) Hives midazolam [From Versed] Adverse Reaction (Intermediate, Verified 10/31/24 16:36) Rash morphine Adverse Reaction (Intermediate, Verified 10/31/24 16:36) Unknown Medication List - Last Reconciled 10/31/24 by ROSELINE Cary-TRES B.coagulans-digestive enzym 10 2 billion cell (Digestive Advantage Probiotics Plus Gas) caps PO escitalopram oxalate 20 mg PO DAILY evolocumab (Repatha SureClick) 140 mg subcut Q2W HPI Comments Details: Monica is a very pleasant 59-year-old female patient of Dr. Obregon. She has a past medical history of hyperlipidemia and nicotine dependence. She presents to the office today for follow-up of her mixed urinary incontinence. In discussion with the patient today she reports to be doing and feeling well. She reports significant improvement in mixed urinary incontinent episodes she had been experiencing. She discusses having attended 3 physical therapy/pelvic floor therapy appointments and feels this has been significantly helpful. She reports having stopped her tolterodine and continues with exercises she has reviewed with pelvic floor therapist. She currently denies any bothersome urinary issues or concerns. Previous workup has included a retroperitoneal ultrasound 08/22 noting bilateral kidneys with no calculi, lesions, and or hydronephrosis. The bladder is distended and normal. Bilateral ureteral jets are demonstrated. Pre void bladder volume is approximately 185 mL. Postvoid bladder volume is approximately 10 mL. Unremarkable renal ultrasound. She has history of 2 vaginal births, average size babies, and labors to be somewhat short. She otherwise denies nocturia, hematuria, dysuria, foul smelling urine, changes to urinary stream, flank pain, fever, and or chills. Discussed at length potential causes for mixed urinary incontinence. In office urinalysis results reviewed with the patient today. PVR 0 mL. She had been utilizing 3-6 Nguyen pads per day however is down to 1 peripad. She otherwise offers no other issues or concerns at this time. Urine cytology 09/22 Negative for high-grade urothelial carcinoma. [facility] Medical History Multiple sclerosis Fibrocystic changes of right breast (~1989) Hyperlipidemia Surgical History Hx of bilateral cataract extraction History of tubal ligation History of appendectomy Family History Father History of quadruple bypass Multiple myeloma Diabetes Heart attack Brother Aortic valve replaced Social History Alcohol intake: never Patient Tobacco Use Status: Current everyday Tobacco user Review of Systems Const All systems reviewed & are unremarkable except as noted in HPI and below Physical Exam Const General: cooperative, healthy appearing, comfortable, no acute distress, well developed, alert and awake Orientation/consciousness: patient oriented x3 Limitations: no limitations HEENT Head: Yes normal to inspection, Yes normocephalic and Yes atraumatic Ears: hearing grossly normal bilaterally Eyes General: appearance normal, both eyes and all related structures Neck Neck: Yes normal visual inspection and Yes trachea midline Chest Chest palpation & inspection: normal inspection of the chest Resp Effort & Inspection: normal respiratory effort and able to speak in complete sentences Cardio Rate: regular rate GI Inspection: Yes normal to inspection General: Yes no CVA tenderness Back/Spine/Pelvis Back: no CVA tenderness Skin General skin exam: no rashes or lesions noted Neuro General: patient oriented x3 Extrem General: Yes normal to inspection Psych Appearance: grossly normal and well kempt Mental Status: mental status grossly normal Speech and movement: Normal speech and movement present and Clear speech present Affect: normal affect Attitude: cooperative Thought process: Normal thought process present Thought content: Normal thought content present Insight: Fair insight present (Psych) Judgement: Fair judgement present (Psych) Office Procedures Post Void Residual Post Residual Void Post Void Residual (PVR): 0 [id number] Void Residual by ultrasound Results AMB Urinalysis, Automated UA Leukoctes 125 Gus/uL Last Edit by Raman Lomas on 10/31/24 15:06 UA Nitrite Last Edit by Raman Lomas on 10/31/24 15:06 UA Urobilinogen 0.2 mg/dL Last Edit by Raman Lomas on 10/31/24 15:06 UA Protein 0 mg/dL Last Edit by Raman Lomas on 10/31/24 15:06 UA pH 6.0 Last Edit by Raman Lomas on 10/31/24 15:06 UA Blood 25 Deep/uL Last Edit by Raman Lomas on 10/31/24 15:06 UA Specific [place] 1.020 Last Edit by Raman Lomas on 10/31/24 15:06 UA Ketone Last Edit by Raman Lomas on 10/31/24 15:06 UA Bilirubin 0 mg/dL Last Edit by Raman Lomas on 10/31/24 15:06 UA Glucose 0 mg/dL Last Edit by Raman Lomas on 10/31/24 15:06 Results Reviewed Results Reviewed: Laboratory Last Values Urine pH (Auto) 6.0 10/31/24 15:05 Specific [place] (Auto) 1.020 10/31/24 15:05 Urine Protein (Auto) 0 mg/dL 10/31/24 15:05 Glucose (UA)(Auto) 0 mg/dL 10/31/24 15:05 Urine Blood (Auto) 25 Deep/uL 10/31/24 15:05 Urine Bilirubin (Auto) 0 mg/dL 10/31/24 15:05 Urine Urobilinogen (Auto) 0.2 mg/dL 10/31/24 15:05 Leukocyte Esterase (Auto) 125 Gus/uL 10/31/24 15:05 Assessment & Plan Assessment & Plan (1) Smoking: Code(s): F17.200 - Nicotine dependence, unspecified, uncomplicated Category: Social Hx (2) Mixed stress and urge urinary incontinence: Code(s): N39.46 - Mixed incontinence Category: Medical (3) Microscopic hematuria: Code(s): R31.29 - Other microscopic hematuria Category: Medical Plan In office urinalysis results reviewed with the patient today; will send for urine cytology. PVR 0 mL Patient currently denies any bothersome urinary issues or concerns. She reports be happy with current voiding parameters. Will continue with pelvic floor therapy. Will also continue with surveillance monitoring. We discussed importance of limiting/quitting nicotine dependence for overall health and well-being. We discussed near future in office cystoscopy and or urodynamics if symptoms worsen and or arise. Follow-up in 6 months; or sooner with any issues, concerns, and or questions. Orders: Orders Urine Cytology Today R31.29 - Other microscopic hematuria AMB Urinalysis Automated Today Z13.9 - Encounter for screening, unspecified AMB Post Void Residual by ultrasound Today N39.46 - Mixed incontinence Patient Instructions: The patient had an opportunity to ask questions regarding the treatment plan. All questions were answered. Physical exam, labs, and imaging were discussed and reviewed in detail. As well as risks, benefits, and discussion of treatment choices. No major barriers to understanding were identified. The patient expressed understanding and agreement with the above treatment plan. The patient was made aware they should contact our office by phone for worsening of their current condition, the appearance of new symptoms, or with any questions or concerns. Compliance is encouraged with any medications and follow up testing that is ordered. It is a privilege to be allowed the opportunity to participate in? your urological care.? Again, if you have any questions or concerns If you have any questions or concerns please do not hesitate to contact me. The office is [phone]. This note is constructed using voice recognition software. While every effort has been made to ensure accuracy biostatistics director errors may have been included. Yours sincerely, ANUJ Cary Coding Level of Care Code Est Pt Level 3 (38694) Diagnoses Smoking F17.200 Mixed stress and urge urinary incontinence N39.46 Microscopic hematuria R31.29 CPT Codes Post Residual Void - PVR CPT Code: 37168-Guza Void Residual by ultrasound ([id number])
--- OUTSIDE RECORDS SUMMARY | 2024-10-31 15:29 | XMS_ITS | Patient Health Record ---
Author Organization [facility] Address [address] [place] [address] Care Team Providers Care Talent Advisor Name Role Phone SYED YUEN M.D. Primary Care Provider RASHEEDA Kaiser Unavailable [phone] Allergies Allergen (clinical drug ingredient) Drug/Non Drug [...] W/U Status Risk Notes Problem Urinary incontinence (128482373) Unspecified urinary incontinence (R32) Active confirmed Problem Hyperlipidemia (91290866) Hyperlipidemia, unspecified (E78.5) Active confirmed Problem Mild recurrent major depression (96533825) Major depressive disorder, recurrent, mild (F33.0) Active confirmed Problem Localized morphea (778410713) Lichen sclerosus et atrophicus (L90.0) Active confirmed Problem COVID-19 (620412976) COVID-19 (U07.1) Active confirmed Vital Signs Temperature 98.0 degrees Fahrenheit 03/28/2024 Blood pressure diastolic 70 mm Hg 03/28/2024 Height 61 in 03/28/2024 Blood pressure systolic 120 mm Hg 03/28/2024 Weight 149 lbs 03/28/2024 BMI 28.15 kg/m2 03/28/2024 Encounters Encounter Location Date Provider Diagnosis [facility] [employer] [address] [address] 03/28/2024 RASHEEDA HUMPHRIES Encounter for gynecological examination (general) (routine) without abnormal findings Z01.419 ; Encounter for screening mammogram for malignant neoplasm of breast Z12.31 and Lichen sclerosus et atrophicus L90.0 [facility] [employer] [address] 01/08/2024 RASHEEDA HUMPHRIES Lichen sclerosus et atrophicus [...] Name:RASHEEDA HUMMEL Ari, 03/31/2025 02:30:00 PM, [address] [facility], [address], [place], [address], Insurance Providers Payer Name Payer Address Payer Phone Subscriber Number Group Number Insured Name Patient Relationship to Insured Coverage Start Date Coverage End Date [employer] [place] [address] [address] [place] [address] [id number] LASHONDA HOROWITZ Self - patient is the insured Medical (General) History Medical History History ICD Code Major depressive disorder, recurrent, mi ld F33.0 Hyperlipidemia, unspecified E78.5 COVID-19 U07.1 Lichen sclerosus et atrophicus L90.0 Surgical History Surgery Date(Month/Year) Appendectomy 10/1980 Tonsillectomy 1969' Bilateral tubal ligation 1997 Hospitalization History Reason Date(Month/Year) Diverticulitis [facility] 06/2021 Childbirth
== END 2024-10-31 15:01 | disposition home or self-care (01) ==
LOC: HO.HUSH 14:12
PROVIDERS: PCP Internal Medicine; Visit Provider Nurse Practitioner Family
DX: F17.200 Nicotine dependence, unspecified, uncomplicated (principal); N39.46 Mixed incontinence; R31.29 Other microscopic hematuria
CPT/HCPCS: 99213

== ENCOUNTER 2024-10-31 14:12 | Outpatient (REF) | payer OTHER, SELFPAY ==
[2024-10-31 16:36] LABS: Urine Cytology See Pathology rpt
== END 2024-10-31 14:13 | disposition home or self-care (01) ==
LOC: HO.LNP 14:12
PROVIDERS: PCP Internal Medicine; Visit Provider Nurse Practitioner Family
DX: R31.29 Other microscopic hematuria (principal); N39.46 Mixed incontinence; F17.200 Nicotine dependence, unspecified, uncomplicated
CPT/HCPCS: 51798; 81003; 88112

== ENCOUNTER 2024-11-23 14:00 | Outpatient (RCR) | payer OTHER, SELFPAY ==
--- NOTE | 2024-10-13 14:58 | MHC.PT.EP ---
[facility] [place] Office [place] Office [place] Office [address] Cristóbal Cruz [address] [phone] F: [phone] F: [phone] F: [phone] F: [phone] Physical Therapy Plan of Care Date of Evaluation: 10/13/24 Date of Surgery: NA Diagnosis: Mixed incontinence Assessment: Monica is a 59 year old female who is referred to PT for mixed incontinence . She reports of having symptoms of urgency for the last 3 years. Her symptoms started around the same time she was diagnosed with lichen sclerosus. Over the last 3 years her symptoms have gotten worse. On PT examination she reports of having urinary urgency, frequency, UUI and KARON when her bladder is full. She denies having any pain with urination except if she has a cut secondary to scratching due to lichen. She has h/o IBS and alternates between constipation and diarrhea. She is not sexually active due to the lichen pain. Detailed vaginal exam and lumbar exam to be done in next session. She would benefit from skilled PT to address the aforementioned impairments and improve tolerance to functional activities. Frequency and Duration: The patient will be seen 1/week for 8 weeks Short Term Goals: 1. Transvaginal exam will be done in 2 weeks 2. Pt will be able to state at least 3 urge suppression techniques in 3 weeks 3. Pt will be able to void every 2 hours during the day and no more than 1 at night in 4 weeks Teacher Adult Education Goals: 1. Pt will deny having KARON in 5 weeks. 2. Pt will deny having UUI in 7 weeks 3. Pt will be independent with [facility] for symptom management and maintenance following d/c in 8 weeks Treatment Plan: Modalities to reduce pain, spasms and effusion. Manual therapy to restore motion and function. Therapeutic exercise to improve strength and flexibility. Neuromuscular re-education for posture and balance. Therapeutic activities to return to functional activities of daily living. Electronically signed by: Please sign and return to therapist. Thank you for your referral.
--- NOTE | 2024-12-20 13:08 | MHC.PT.DC ---
[facility] [place] Office [place] Office [place] Office [address] Cristóbal Cruz [address] [phone] F: [phone] F: [phone] F: [phone] F: [phone] Physical Therapy Discharge Report Diagnosis: Mixed incontinence Date of Surgery: NA Date of Evaluation: 10/13/24 Date of Discharge: 12/20/24 Treatments to Date: 5 Cancellations to Date: 1 No Shows to Date: 0 Discharge Status: Achieved Goals Improved Function Independent with HEP Discharge Summary: Monica attended 5 PT visits and made significant improvements with PT. She is independent with all HEP and has achieved all goals set for her. She is therefore being d/c from PT. Electronically signed by: Nelda Orozco, PT DPT Please sign and return to therapist. Thank you for your referral.
== END 2024-12-20 13:08 | disposition home or self-care (01) ==
LOC: HO.PT 14:00
PROVIDERS: PCP Internal Medicine; Visit Provider Nurse Practitioner Family
DX: N39.46 Mixed incontinence (principal)
CPT/HCPCS: 97110; 97112; 97140; 97162

== ENCOUNTER 2025-01-20 14:14 | Outpatient (AMB) | payer OTHER, SELFPAY ==
--- OUTSIDE RECORDS SUMMARY | 2025-01-20 14:15 | XMS_ITS | Clinical Summary ---
Author Organization [facility] it Address [address] [place] [address] Care Team Providers Care Alum Plant Supervisor Name Role Phone Jefe Obregon MD Primary Care Provider [phone] Immunizations Name Administration Dates Next Due Pfizer SARS-CoV-2 COVID-19, mRNA, LNP-S, preservative free 06/05/2020,05/18/2020 Surgical History Surgery Date Site/Laterality Comments APPENDECTOMY age 15 PROCEDURE: HISTORICAL APPENDECTOMY TONSILLECTOMY age 8 PROCEDURE: HISTORICAL TONSILLECTOMY OTHER SURGICAL HISTORY age 25 PROCEDURE: CT EXC CYST/ABERRANT BREAST TISSUE OPEN 1/> LESION; COMMENT: benign, right breast fibrocystic OTHER SURGICAL HISTORY 2009 PROCEDURE: CT ENDOMETRIAL BX W/WO ENDOCERVIX BX W/O DILAT SPX; COMMENT: negative COLONOSCOPY 2004 or 2005 PROCEDURE: HISTORICAL COLONOSCOPY; COMMENT: [facility], [place] ESOPHAGOGASTRODUODENOSCOPY PROCEDURE: CT ESOPHAGOGASTRODUODENOSCOPY TRANSORAL DIAGNOSTIC Family History Medical History [...] 1982 Pneumococcal Vaccine: 50+ Years (1 of 1 - PCV) 2013 Zoster Vaccines (1 of 2) 2013 Cervical Cancer Screening: Pap Smear 09/06/2021 09/06/2018 Colorectal Cancer Screening: Colonoscopy 05/07/2022 HIV Screening 05/07/2022 Hepatitis C Screening 05/07/2022 Social Influencers of Health Screening 05/07/2022 Breast Cancer Screening 03/27/2023 03/27/20, 12/13/2019, 06/16/2018 COVID-19 Vaccine ( season) 2024 06/05/2020, 05/18/2020 Depression Screening 06/01/2024 Influenza Vaccine (#1) 2025 02/28/2020 Cholesterol Screening (Lipid Panel) 06/14/2027 [...] this topic Medical Devices Implanted Type Area Emulsion Coater Device Identifier Shelf Expiration Date Model / Serial / Lot Lens Hiram Gandhi Itec Protec Tri-Fix +23.5 Diopter - [id number] - [id number] Implanted:Qty: 1 on 09/12/2020 by Yunier Kidd MD Implants Left: Eye [employer] 08/09/2022 [id number] / [id number] / Lens Tecnis 13mm +22.5 Diopter +1.5 Cylinder Modify C - [id number] - [id number] Implanted:Qty: 1 on 09/18/2020 by Yunier Kidd MD Implants Right: Eye [employer] 08/16/2025 [id number] / [id number] / . Procedures Procedure Name Priority Date/Time [...] No suspicious microcalcifications or masses are seen. CONCLUSION: 1. Stable [...] on 03/29/2021 1:12 PM. Workstation Name - [id number] Procedure Note Kurt Liu MD - 05/24/2022 [...] MD on 03/29/2021 1:12PM. Workstation Name - [id number] us Heidy Gaytan CNM IMG BI PROCEDURES Final Res ult * Pap smear (09/06/2018 12:00 AM EDT) Case Results Patient Name: MONICA HALL MR#: [id number] Collected Date: 09/06/2018 Reported Date: 09/08/2018 Specimen #[id number] Final Diagnosis Satisfactory for evaluation. Endocervical transformation zone component present. Partially obscuring inflammation noted. Negative for Intraepithelial Lesion or Malignancy. Clinical Diagnosis Z01.419 Source: A: ThinPrep Imaged Pap Cervical-SC Electronically Signed Out By THERESA Cui(ASCP) Note: The Pap test is a screening test with an inherent false negative rate. Automated prescreening of all liquid based specimens is performed by the ThinPrep Imaging System unless otherwise stated. Test Performed by: [address] [address] Jb Soler Jr., M.D., [facility], Director HISTORICAL TESTING LAB RESULTING AGENCY Comment:MR#: [id number] 09/06/2018 us Greta Boyer MD LAB CYTOLOGY ORDERABLES Edited Result - Final HISTORICAL TESTING LAB RESULTING AGENCY from Last 3 Months or Most Recently Relevant to Health Maintenance Care Teams Alum Plant Supervisor Relationship Specialty Start Date End Date Jefe Obregon MD [address] [place] [address] Dr Byron MA PCP - General 04/21/22
--- OUTSIDE RECORDS SUMMARY | 2025-01-20 14:15 | XMS_ITS | Patient Health Record ---
Author Organization [facility] Address [address] [place] [address] Care Team Providers Care Auxiliary Operator Name Role Phone SYED YUEN M.D. Primary Care Provider RASHEEDA Kaiser Unavailable [phone] Allergies Allergen (clinical drug ingredient) Drug/Non Drug Allergy documented on EMR Reaction Allergy Type Onset Date Status mirabegron Myrbetriq hives Drug Allergy Active morphine Morphine hives Drug Allergy Active Reason For Referral No Information Medications Medication SIG (Take, Route, Frequency, Duration) Notes Start Date End Date Status Repatha SureClick 140 MG/ML Subcutaneous ; Duration: 28 Active Escitalopram Oxalate 20 MG Oral; Duration: 90 Active Clobetasol Propionate 0.05 % 1 application Externally twice weekly; Duration: 365 days 09/08/2022 Active Social History Tobacco [...] W/U Status Risk Notes Problem Urinary incontinence (794854167) Unspecified urinary incontinence (R32) Active confirmed Problem Hyperlipidemia, unspecified (E78.5) Active confirmed Problem Mild recurrent major depression (73588501) Major depressive disorder, recurrent, mild (F33.0) Active confirmed Problem Localized morphea (506719382) Lichen sclerosus et atrophicus (L90.0) Active confirmed Problem COVID-19 (338291338) COVID-19 (U07.1) Active confirmed Vital Signs Temperature 98.0 degrees Fahrenheit 03/28/2024 Blood pressure diastolic 70 mm Hg 03/28/2024 Height 61 in 03/28/2024 Blood pressure systolic 120 mm Hg 03/28/2024 Weight 149 lbs 03/28/2024 BMI 28.15 kg/m2 03/28/2024 Encounters Encounter Location Date Provider Diagnosis [facility] [address] [place] [address] 03/28/2024 RASHEEDA HUMPHRIES Encounter for gynecological examination [...] Mammogram 3D 2022 Next Appt Details Provider Name:RASHEEDAMindi Chapman, 03/31/2025 02:30:00 PM, [address], [address], [place], [address], Insurance Providers Payer Name Payer Address Payer Phone Subscriber Number Group Number Insured Name Patient Relationship to Insured Coverage Start Date Coverage End Date [employer] [place] MELINA SMITH [address] [place] [address] [id number] LASHONDA HOROWITZ Self - patient is the insured Medical (General) History Medical History History ICD Code Major depressive disorder, recurrent, mi ld F33.0 Hyperlipidemia, unspecified E78.5 COVID-19 U07.1 Lichen sclerosus et atrophicus L90.0 Surgical History Surgery Date(Month/Year) Appendectomy 10/1980 Tonsillectomy 1969's Bilateral tubal ligation 1997 Hospitalization History Reason Date(Month/Year) Diverticulitis 06/2021 Childbirth
--- OUTSIDE RECORDS SUMMARY | 2025-01-20 14:15 | XMS_ITS | Clinical Summary ---
Author Organization [facility] Address [address] [place] [address] Care Team Providers Care Legal Cashier Name Role Phone Jefe Obregon MD Primary Care Provider [phone] Allergies Active Allergy Reactions Criticality Noted Date [...] 07/16/2016 Encounter for annual routine gynecological exami [facility] 04/22/2016 Abdominal pain, left lower quadrant 04/18/2015 [...] 89 05/04/2022 9:12 AM EST Temperature 36.4 C (97.5 F) 05/04/2022 9:12 AM EST Respiratory Rate 18 05/04/2022 9:12 AM EST [...] 06/16/2018, Additional history exists Influenza Vaccine (#1) 2025 02/19/2015 RSV Adult > 60+ Yrs or (1 - 1-dose 75+ series) 2038 Hepatitis C Screening Completed 11/04/2019, 018 Hepatitis B Vaccines Aged Out No long er eligible based on patient's age to complete this topic RSV Ped < 20 months Aged Out No longe r eligible based on patient's age to complete this topic Medical Devices Implanted Type Area Investment Director Device Identifier Shelf Expiration Date Model / Serial / Lot Lens Tecnis Tecnis Itec Protec Tri-Fix +23.5 Diopter - [id number] - [id number] Implanted:Qty: 1 on 09/12/2020 by Yunier Kidd MD at [facility] Location Lens Left: Eye [employer] 08/09/2022 [id number] / [id number] / Lens Tecnis 13mm +22.5 Diopter +1.5 Cylinder Modify C - [id number] - [id number] Implanted:Qty: 1 on 09/18/2020 by Yunier Kidd MD at [facility] Location Lens Right: Eye [employer] 08/16/2025 [id number] / [id number] / . Advance Directives For more information, please contact: [phone] Documents on File Type Date Recorded Patient Ball Points Inspector Expl anation Advance Directive and Living Will 09/05/2013 Care Teams Legal Cashier Relationship Specialty Start Date End Date Jefe Obregon MD [address] [place] [address] [address] [place] [address] PCP - General Marine Steam Fitter 04/21/22
[2025-01-20 14:38] VITALS: BP 124/72; PULSE 83; TEMP 36.6; O2SAT 98; BMI 28.0
--- NOTE | 2025-01-20 14:38 | MHC.PC.OV ---
Vital Signs 01/20/25 14:38 Height 5 ft 1 in Weight 67.132 kg BMI 28.0 BP 124/72 Blood Pressure Location Lt brachial Position Sitting Pulse 83 Pulse Source Pulse Oximeter Temp 97.8 F Temp Source Temporal Artery Scan Pulse Oximetry (%) 98 Oxygen Delivery Method Room Air Intake Visit Reasons: routine Airplane Engineer Required: No Accompanied by: Self / Same As Patient Allergies mirabegron (From Myrbetriq) Allergy (Intermediate, Verified 01/20/25 14:38) Hives midazolam (From Versed) Adverse Reaction (Intermediate, Verified 01/20/25 14:38) Rash morphine Adverse Reaction (Intermediate, Verified 01/20/25 14:38) Unknown Tobacco use date assessed: 01/20/25 Dental Screening Dental Screen Date: 01/20/25 Did you have a dental visit in the last 12 months?: Yes Did you have a dental problem in the last 6 months where you did not have access to dental care?: No HPI HPI Comments History of Present Illness Details 59-year-old female with history of hyperlipidemia, fibrocystic breast disease, depression, urge incontinence, and smoking history presents to the office today for management of chronic conditions and to establish care. She currently follows with Cardiology and is on Repatha for her cholesterol. Feels depression symptoms are well controlled with Lexapro though is reporting significant fatigue. Follows with Psychiatry. Reports this has been going on for months. She brought this up to our cardiologists who did not feel it was cardiac related. She states that she just has no energy and sleeps excessively for over 11 hours at times. She states even taking steps as exhausting at time. She has also been following with Urology for urge incontinence. She had previously been on Myrbetriq which she reportedly had an allergic reaction to. She then did pelvic floor therapy which was helpful. She states she is able to get to the bathroom and still does exercises at home. However she does still wear pads and is bothered by the frequency of urination. She is also reporting foul odor from her groin ROS: General: No fevers, malaise, unintentional weight loss HEENT: No blurred vision, diplopia. No sore throat, nasal congestion, rhinorrhea, sinus pain, ear pain Cardiovascular: No chest pain, palpitations, or leg edema Respiratory: No shortness of breath, wheezing, cough MSK: No myalgia, back pain Neuro: No headaches, weakness, paresthesias Skin: No rashes or lesions EXAM: Constitutional - Awake and Alert, No apparent distress Eyes - PERRL Cardiovascular - S1S2, RRR, No edema Respiratory - Normal lung expansion, Normal respiratory effort, No respiratory distress, CTA bilaterally Extremities - no calf tenderness bilaterally, no swelling Skin - Warm/Dry Neurological - Alert & oriented x3 Psychological - Appropriate affect [facility] Medical History (Updated 01/20/25 @ 19:02 by CASSANDRA Sierra) Depression Urge incontinence Multiple sclerosis Fibrocystic changes of right breast (~1989) Hyperlipidemia Surgical History Hx of bilateral cataract extraction History of tubal ligation History of appendectomy Family History (Updated 01/20/25 @ 14:45 by Lor Almanza MA) Father History of quadruple bypass Multiple myeloma Diabetes Heart attack Brother Aortic valve replaced Mother No problems noted. Father No problems noted. Social History Housing: House Alcohol intake: never Patient Tobacco Use Status: Current everyday Tobacco user Cigarette Packs Per Day: 1.5 e-Cigarette/Vaping Use: Currently Using service: No Current occupational status: employed Cognitive needs: No Hearing needs: No Vision needs: Yes (reading glasses) Questionnaire PHQ-9 Over the last 2 weeks, how often have you been bothered by any of the following problems? 1. Little interest or pleasure in doing things: not at all 2. Feeling down, depressed, or hopeless: several days (anxiety to get work done ) 3. Trouble falling or staying asleep, or sleeping too much: not at all 4. Feeling tired or having little energy: nearly every day 5. Poor appetite or overeating: not at all 6. Feeling bad about yourself - or that you are a failure or have let yourself or your family down: not at all 7. Trouble concentrating on things, such as reading the newspaper or watching television: not at all 8. Moving or speaking so slowly that other people could have noticed. Or the opposite - being so fidgety or restless that you have been moving around a lot more than usual: not at all Source: Developed by Drs. Anjum Higgins, Val Luna, Shoaib Baez and colleagues, with an educational barbara from [employer]. Thrive Questionnaire Date Thrive assessed: 01/20/25 I am a: Patient Within the past 12 months, did the food you bought not last and you didn't have the money to get more?: Never true Within the past 12 months, did you worry whether your food would run out before you got money to buy more?: Never true Do you have trouble paying for medicines?: No Do you have trouble getting transportation to medical appointments?: No Do you have trouble paying your heating and electricity bill?: No Do you have trouble taking care of your child, family member or friend?: No Do you have trouble with day-to-day activities such as bathing, preparing meals, shopping, managing finances, etc.?: No Are you currently unemployed and looking for a job?: No Are you interested in more education?: No THRIVE Score: 0 AUDIT C Alcohol Use Questionnaire (AUDIT-C) 1. How often do you have a drink containing alcohol?: Never 3. How often do you have six or more drinks on one occasion?: Never Total Score: 0 HARJEET-7 AMB Questionnaire HARJEET-7 Date HARJEET - 7 assessed: 01/20/25 Feeling nervous, anxious, or on edge: 1 = Several days (sometimes) Worrying too much about different things: 0 = Not at all Trouble relaxin = Not at all Being so restless that it is hard to sit still: 0 = Not at all Becoming easily annoyed or irritable: 0 = Not at all Feeling afraid as if something awful might happen: 0 = Not at all Source: Developed by Drs. Anjum Higgins, Val Luna, Shoaib Baez and colleagues, with an educational barbara from [employer]. Physical exam (Primary Care) Vital Signs: Last Vital Signs Temp 97.8 F 01/20/25 14:38 Pulse 83 01/20/25 14:38 BP 124/72 01/20/25 14:38 Pulse Ox 98 01/20/25 14:38 Oxygen Delivery Method Room Air 01/20/25 14:38 BMI result Body Mass Index 28.0 Tobacco/Smoking Status: Tobacco use Status Tobacco use date assessed 01/20/25 01/20/25 14:47 Patient Tobacco Use Status Current everyday Tobacco 01/20/25 14:47 e-Cigarette/Vaping Use Currently Using 01/20/25 14:47 Thrive Assessment: Date of Thrive Assessment Date Thrive assessed 01/20/25 01/20/25 14:47 Coding Level of Care Code New Pt Level 4 (45425) Complex EM visit Add On G2211 Diagnoses Fatigue R53.83 Hyperlipidemia E78.5 Urge incontinence N39.41 Depression F32.A Assessment & Plan Assessment & Plan (1) Fatigue: Code(s): R53.83 - Other fatigue Category: Medical Plan: Labs ordered, pending results, we will discuss further plan (2) Hyperlipidemia: Code(s): E78.5 - Hyperlipidemia, unspecified Category: Medical Plan: Lipid panel ordered (3) Urge incontinence: Code(s): N39.41 - Urge incontinence Category: Medical Plan: She will contact Urology regarding oxybutynin though may be interested in this. Continue pelvic floor exercises (4) Depression: Code(s): F32.A - Depression, unspecified Category: Medical Plan: Stable. Continue following with psychiatry intake escitalopram as prescribed Plan Follow-up in 6 months Orders: Orders Lipid Panel Today R53.83 - Other fatigue IRON PROFILE Today R53.83 - Other fatigue Hemoglobin A1c Today R53.83 - Other fatigue Vitamin B12 Today R53.83 - Other fatigue TSH reflex Free T4 Today R53.83 - Other fatigue Vitamin D 25-OH Total Today R53.83 - Other fatigue Basic Metabolic Panel Today R53.83 - Other fatigue Complete Blood Count Auto Diff Today R53.83 - Other fatigue Liver Panel Today R53.83 - Other fatigue Bacterial Vaginosis Panel Today R53.83 - Other fatigue Patient Instructions: Ask urology about Oxybutynin
== END 2025-01-20 15:10 | disposition home or self-care (01) ==
LOC: HO.HMCHD 14:14
PROVIDERS: PCP Physician Assistant; Visit Provider Physician Assistant
DX: R53.83 Other fatigue (principal); E78.5 Hyperlipidemia, unspecified; N39.41 Urge incontinence; F32.A Depression, unspecified

== ENCOUNTER 2025-01-20 14:14 | Outpatient (REF) | payer OTHER, SELFPAY ==
[2025-01-20 15:29] LABS: MANUAL DIFF FLAG NO
[2025-01-20 15:30] LABS: Hematocrit 39.2 % (37.0-47.0); Hemoglobin 13.3 g/dl (12.0-16.0); Imm Gran Abs Auto 0.01 X10*3/uL (0.00-0.03); Imm Gran Pct Auto 0.1 % (0.0-0.4); Lymphocytes Absolute Auto 2.6 X10*3/uL (1.2-4.9); Mean Corpuscular HGB Conc 33.9 g/dl (31.0-35.0); Mean Corpuscular Hemoglobin 31.5 pg (27.0-33.0); Mean Corpuscular Volume 92.9 fL (80.0-98.0); NRBC Abs Auto 0.000 X10*3/uL (0.0-0.012); NRBC Pct Auto 0.0 /100WBC (0.0-0.2); Platelet Count 265 X10*3/uL (160-400); Red Blood Count 4.22 X10*6/uL (4.20-5.50); White Blood Count 9.2 X10*3/uL (4.8-10.8)
[2025-01-20 15:53] LABS: Alanine Aminotransferase 31 U/L (0-31); Albumin Level 4.3 g/dL (3.5-5.0); Alkaline Phosphatase 98 U/L (39-117); Anion Gap 13 (12-20); Aspartate Amino Transferase 34 U/L (5-31); Blood Urea Nitrogen 19 mg/dL (9-16); Calcium 9.7 mg/dL (8.4-10.2); Carbon Dioxide 30 mmol/L (22-29); Chloride 104 mmol/L (96-108); Cholesterol 186 mg/dL (<200); Estimated Glomerular Filt Rate > 60; HDL Cholesterol 62 mg/dL (>40); Iron 60 mcg/dL (30-160); Percent Iron Saturation 22 % (15-50); Potassium 3.8 mmol/L (3.3-5.1); Sodium 143 mmol/L (135-145); Total Iron Binding Capacity 279 mcg/dL (228-428); Total Protein 7.2 g/dL (6.5-8.0); Triglycerides 209 mg/dL (<150); Unsaturated Iron Binding 219 ug/dL
[2025-01-20 16:18] LABS: Vitamin B12 364 pg/mL (200-900)
[2025-01-20 16:42] LABS: Hemoglobin A1C 163.3821 umol/L; Total Hemoglobin (HGBA1C) 4168.6842 umol/L
== END 2025-01-20 14:15 | disposition home or self-care (01) ==
LOC: HO.LAB 14:14
PROVIDERS: PCP Physician Assistant; Visit Provider Physician Assistant
DX: Z13.1 Encounter for screening for diabetes mellitus (principal); R53.83 Other fatigue; E78.5 Hyperlipidemia, unspecified; N39.41 Urge incontinence; F32.A Depression, unspecified
CPT/HCPCS: 36415; 80048; 80061; 80076; 82306; 82607; 83036; 83540; 84443; 85025

== ENCOUNTER 2025-02-18 10:59 | Outpatient (AMB) | payer OTHER, SELFPAY ==
--- OUTSIDE RECORDS SUMMARY | 2025-02-18 11:02 | XMS_ITS | Encounter Summary ---
Author Organization [facility] Address [address] [place] [address] Care Team Providers Care Facilities Engineering Manager Name Role Phone Jefe Obregon MD Primary Care Provider [phone] Encounter Details Date Type Department Care Team Description 08/09/2021 Chronic [place] [address] Susan Figu[address]a [address] [place] [address] Social History Tobacco Use Types Packs/Day Years [...] on filedocumented in this encounter Care Teams Facilities Engineering Manager Relationship Specialty Start Date End Date Jefe Obregon MD [address] [place] [address] [address] [place] [address] PCP - General Cryogenics Repairer 04/21/22 documented as of this encounter
--- OUTSIDE RECORDS SUMMARY | 2025-02-18 11:02 | XMS_ITS | Clinical Summary ---
Author Organization [facility] Address [address] [place] [address] Care Team Providers Care Magazine Editor Name Role Phone Jefe Obregon MD Primary Care Provider [phone] Allergies Active Allergy Reactions Criticality Noted Date [...] Encounter for annual routine gynecological exami [facility] 04/22/2016 Abdominal pain, left lower quadrant 04/18/2015 [...] this topic Medical Devices Implanted Type Area Card Punching Machine Operator Device Identifier Shelf Expiration Date Model / Serial / Lot Lens Tecnis Tecnis Itec Protec Tri-Fix +23.5 Diopter - [id number] - [id number] Implanted:Qty: 1 on 09/12/2020 by Yunier Kidd MD at [facility] Location Lens Left: Eye [employer] 08/09/2022 [id number] / [id number] / Lens Tecnis 13mm +22.5 Diopter +1.5 Cylinder Modify C - [id number] - [id number] Implanted:Qty: 1 on 09/18/2020 by Yunier Kidd MD at [facility] Location Lens Right: Eye [employer] 08/16/2025 [id number] / [id number] / . Advance Directives For more information, please contact: [phone] Documents on File Type Date Recorded Patient Unit Support Representative Expl anation Advance Directive and Living Will 09/05/2013 Care Teams Magazine Editor Relationship Specialty Start Date End Date Jefe Obregon MD [address] [place] [address] [address] [place] [address] PCP - General Towerman 04/21/22
--- OUTSIDE RECORDS SUMMARY | 2025-02-18 11:02 | XMS_ITS | Patient Health Record ---
Author Organization [facility] Address [address] [place] [address] Care Team Providers Care Colorist Name Role Phone SYED YUEN M.D. Primary Care Provider RASHEEDA Kaiser Unavailable [phone] Allergies Allergen (clinical drug ingredient) Drug/Non Drug [...] W/U Status Risk Notes Problem Urinary incontinence (601058436) Unspecified urinary incontinence (R32) Active confirmed Problem Hyperlipidemia (57465429) Hyperlipidemia, unspecified (E78.5) Active confirmed Problem Mild recurrent major depression (82779400) Major depressive disorder, recurrent, mild (F33.0) Active confirmed Problem Localized morphea (849685988) Lichen sclerosus et atrophicus (L90.0) Active confirmed Problem COVID-19 (261333840) COVID-19 (U07.1) Active confirmed Vital Signs Temperature 98.0 degrees Fahrenheit 03/28/2024 Blood pressure diastolic 70 mm Hg 03/28/2024 Height 61 in 03/28/2024 Blood pressure systolic 120 mm Hg 03/28/2024 Weight 149 lbs 03/28/2024 BMI 28.15 kg/m2 03/28/2024 Encounters Encounter Location Date Provider Diagnosis [facility] [address] [place] [address] 03/28/2024 RASHEEDA HUMPHRIES Encounter for gynecological examination [...] Name:RASHEEDA HUMMEL Ari, 03/31/2025 02:30:00 PM, [address], [address], [place], [address], Insurance Providers Payer Name Payer Address Payer Phone Subscriber Number Group Number Insured Name Patient Relationship to Insured Coverage Start Date Coverage End Date [employer] [place] MELINA SMITH [id number] [place] [phone] [id number] LASHONDA HOROWITZ Self - patient is the insured Medical (General) History Medical History History ICD Code Major depressive disorder, recurrent, mi ld F33.0 Hyperlipidemia, unspecified E78.5 COVID-19 U07.1 Lichen sclerosus et atrophicus L90.0 Surgical History Surgery Date(Month/Year) Appendectomy 10/1980 Tonsillectomy 1969' Bilateral tubal ligation 1997 Hospitalization History Reason Date(Month/Year) Diverticulitis [facility] 06/2021 Childbirth
--- OUTSIDE RECORDS SUMMARY | 2025-02-18 11:02 | XMS_ITS | Clinical Summary ---
Author Organization [facility] it Address [address] [place] [address] Care Team Providers Care Casino Operations Supervisor Name Role Phone Jefe Obregon MD Primary Care Provider [phone] Immunizations Name Administration Dates Next Due Pfizer SARS-CoV-2 COVID-19, mRNA, LNP-S, preservative free 06/05/2020,05/18/2020 Surgical History Surgery Date Site/Laterality Comments APPENDECTOMY age 15 PROCEDURE: HISTORICAL APPENDECTOMY TONSILLECTOMY age 8 PROCEDURE: HISTORICAL TONSILLECTOMY OTHER SURGICAL HISTORY age 25 PROCEDURE: [place] EXC CYST/ABERRANT BREAST TISSUE OPEN 1/> LESION; COMMENT: benign, right breast fibrocystic OTHER SURGICAL HISTORY 2009 PROCEDURE: [place] ENDOMETRIAL BX W/WO ENDOCERVIX BX W/O DILAT SPX; COMMENT: negative COLONOSCOPY 2004 or 2005 PROCEDURE: HISTORICAL COLONOSCOPY; COMMENT: [facility] [place] ESOPHAGOGASTRODUODENOSCOPY PROCEDURE: MS ESOPHAGOGASTRODUODENOSCOPY TRANSORAL DIAGNOSTIC Family History Medical History [...] Breast Cancer Screening 03/27/2023 03/27/20, 12/13/2019, 06/16/2018 Depression Screening 06/01/2024 COVID-19 Vaccine ( season) 2025 06/05/2020, 05/18/2020 Influenza Vaccine (#1) 2025 02/28/2020 Cholesterol Screening [...] this topic Medical Devices Implanted Type Area Viscera Washer Device Identifier Shelf Expiration Date Model / Serial / Lot Lens Hiram Gandhi Itec Protec Tri-Fix +23.5 Diopter - [id number] - [id number] Implanted:Qty: 1 on 09/12/2020 by Yunier Kidd MD Implants Left: Eye [employer] 08/09/2022 [id number] / [id number] / Lens Tecnis 13mm +22.5 Diopter +1.5 Cylinder Modify C - [id number] - [id number] Implanted:Qty: 1 on 09/18/2020 by Yunier Kidd MD Implants Right: Eye [employer] 08/16/2025 [id number] / [id number] / . Procedures Procedure Name Priority Date/Time [...] on 03/29/2021 1:12 PM. Workstation Name - [id number] Procedure Note Kurt Liu MD - 05/24/2022 [...] MD on 03/29/2021 1:12PM. Workstation Name - [id number] us Heidy Gaytan CNM IMG BI PROCEDURES Final Res ult * Pap smear (09/06/2018 12:00 AM EDT) Case Results Patient Name: MONICA HALL MR#: [id number] Collected Date: 09/06/2018 Reported Date: 09/08/2018 Specimen #[id number] Final Diagnosis Satisfactory for evaluation. Endocervical transformation [...] System unless otherwise stated. Test Performed by: [address] [address] Jb Soler Jr., M.D., [facility], Director HISTORICAL TESTING LAB RESULTING AGENCY Comment:MR#: [id number] 09/06/2018 us Greta Boyer MD LAB CYTOLOGY ORDERABLES Edited Result - Final HISTORICAL TESTING LAB RESULTING AGENCY from Last 3 Months or Most Recently Relevant to Health Maintenance Care Teams Casino Operations Supervisor Relationship Specialty Start Date End Date Jefe Obregon MD [address] [place] [address] Dr Byron [place] PCP - General 04/21/22
[2025-02-18 12:01] VITALS: BP 102/70; PULSE 91; RESP 16; TEMP 36.4; O2SAT 97; BMI 27.4
--- NOTE | 2025-02-18 12:01 | MHC.OFFWIV ---
Intake Vital Signs 02/18/25 12:01 Height 5 ft 1 in Weight 145 lb BMI 27.4 BP 102/70 Blood Pressure Location Rt brachial Position Sitting Respiration 16 Pulse 91 Pulse Source Pulse Oximeter Temp 97.6 F Temp Source Oral Pulse Oximetry (%) 97 Oxygen Delivery Method Room Air Intake Visit Reasons: EP-upper head pain, weakness, fatigue, face pressu Intake Note: Pt is here today c/o nasal and head pressure x3wks ? sinus infection Patient Tobacco Use Status: Current everyday Tobacco user Allergies mirabegron (From Myrbetriq) Allergy (Intermediate, Verified 02/18/25 12:02) Hives midazolam (From Versed) Adverse Reaction (Intermediate, Verified 02/18/25 12:02) Rash morphine Adverse Reaction (Intermediate, Verified 02/18/25 12:02) Unknown HPI EP-upper head pain, weakness, fatigue, face pressu HPI Details Patient is a 60-year-old female comes to the walk-in clinic after 3 weeks of upper respiratory symptoms, and now complains of fatigue and facial pressure, especially over the front of the forehead and sides of the bridge of her nose. She denies fever or chills, dizziness or vertigo, weakness, malaise or myalgias, nausea vomiting or diarrhea, ear pain, discharge from the ears, rhinitis currently, sore throat, cough, phlegm production, jaw pain, vision changes, neck pain or pressure, chest pain, or other significant associated symptoms. [facility] Medical History Depression Urge incontinence Multiple sclerosis Fibrocystic changes of right breast (~1989) Hyperlipidemia Surgical History Hx of bilateral cataract extraction History of tubal ligation History of appendectomy Family History Father History of quadruple bypass Multiple myeloma Diabetes Heart attack Brother Aortic valve replaced Mother No problems noted. Father No problems noted. Social History Housing: House Alcohol intake: never Patient Tobacco Use Status: Current everyday Tobacco user Cigarette Packs Per Day: 1.5 e-Cigarette/Vaping Use: Currently Using service: No Current occupational status: employed Cognitive needs: No Hearing needs: No Vision needs: Yes (reading glasses) Review of Systems Const All systems reviewed & are unremarkable except as noted in HPI and below Physical Exam Vital Signs: Last Vital Signs Temp 97.6 F 02/18/25 12:01 Pulse 91 02/18/25 12:01 Resp 16 02/18/25 12:01 BP 102/70 02/18/25 12:01 Pulse Ox 97 02/18/25 12:01 Oxygen Delivery Method Room Air 02/18/25 12:01 BMI result Body Mass Index 27.4 Const General: cooperative, healthy appearing, no acute distress, alert, awake, Physically active and well groomed; No anxious, diaphoretic, ill appearing, intoxicated appearing, poor hygiene or tired appearing Nutritional Appearance: average body habitus Limitations: no limitations HEENT Head: Yes normal to inspection, Yes normocephalic and Yes atraumatic Ears: hearing grossly normal bilaterally, external ears normal, TM's normal bilaterally, EAC's normal and TM abnormal (Injected on the right side, but no erythema or bulging apparent) not with effusion, not obstructed by cerumen and not perforated General nose exam: Normal external nose present, Normal nares present, No nasal polyps present, Normal nasal mucous membranes and turbinates present, Normal septum present and No nasal discharge present Face and sinus: No erythema, No edema, No fluctuance, No maxillary instability and Yes sinus tenderness (Frontal and ethmoid) Mouth: Normal oral and palatal mucosa present, lip normal and tongue normal Throat: Yes posterior oropharynx normal, No peritonsillar mass, No postnasal drainage, No uvular edema and No cobblestoning Eyes General: appearance normal, both eyes and all related structures Neck Neck: Yes normal visual inspection, Yes no lymphadenopathy, Yes trachea midline, Yes supple and No anterior neck swelling Chest Chest palpation & inspection: normal palpation of entire chest wall Resp Effort & Inspection: normal respiratory effort, able to speak in complete sentences, no audible wheezes, no cough, no grunting, not labored, no nasal flaring, no retractions and symmetric chest movement Auscultation: clear to auscultation bilaterally, no crackles, no rales, no rhonchi, no wheezes, lung sounds not diminished and No rub present Cardio Palpation: normal PMI Rate: regular rate Rhythm: regular rhythm Heart sounds: S1 normal heart sound present and S2 normal heart sound present Skin Other: Good color, warm and dry Psych Appearance: grossly normal Mental Status: mental status grossly normal Speech and movement: Normal speech and movement present Affect: normal affect Attitude: cooperative Thought process: Normal thought process present Insight: Good insight present (Psych) Judgement: Good judgement present (Psych) Assessment & Plan Assessment & Plan (1) Viral sinusitis: Code(s): J32.9 - Chronic sinusitis, unspecified; B97.89 - Other viral agents as the cause of diseases classified elsewhere Plan Likely viral sinusitis after 3 weeks since onset of upper respiratory infection symptoms, with mildly persistent postnasal drip likely from serous otitis, as her right side injected but not erythematous. Discussed anti-inflammatories regularly, as she has only been taking 400 mg ibuprofen before bedtime. I think she should trial 600 3 times a day for a few days to help open up the passages and give her some relief. I did offer short course of prednisone, but she declined this as she states she tries to avoid prednisone. She should also consider continuing with heat to the face and ears, as this is what is helping her the most so far when she takes hot showers. We will write for azithromycin in case symptoms persist or worsen, she has taken this in the past for sinusitis, however I think at this point that this is viral. Viral panel deferred due to length of time she has been ill already at this point, and she was not in agreement with this. 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 Medications: New azithromycin For 250 mg dose pack: take 500 mg today (day 1), then 250 mg for 4 days (days 2-5) PO 6 tabs 0RF Coding Level of Care Code Est Pt Level 4 (87391) Diagnoses Viral sinusitis J32.9; B97.89
== END 2025-02-18 13:00 | disposition home or self-care (01) ==
PROVIDERS: PCP Physician Assistant; Visit Provider Physician Assistant Medical
DX: J32.9 Chronic sinusitis, unspecified (principal); B97.89 Other viral agents as the cause of diseases classified elsewhere

== ENCOUNTER 2025-03-08 13:52 | Outpatient (REF) | payer OTHER, SELFPAY ==
[2025-03-09 08:53] LABS: Chlamydia pneumoniae PCR Not Detected (Not Detect.); Coronavirus 229E PCR Not Detected (Not Detect.); Coronavirus HKU1 PCR Not Detected (Not Detect.); Coronavirus NL63 PCR Not Detected (Not Detect.); Coronavirus OC43 PCR Not Detected (Not Detect.); Influenza A H1 PCR Not Detected (Not Detect.); Influenza A H1-2009 PCR Not Detected (Not Detect.); Influenza A H3 PCR Not Detected (Not Detect.); RSV PCR Not Detected (Not Detect.); Rhino/Enterovirus PCR Detected (Not Detect.); SARS-CoV-2 PCR Not Detected (Not Detect.)
== END 2025-03-08 13:53 | disposition home or self-care (01) ==
LOC: HO.LNP 13:52
PROVIDERS: PCP Physician Assistant; Visit Provider Physician Assistant Medical
DX: J34.89 Other specified disorders of nose and nasal sinuses (principal); H92.01 Otalgia, right ear; J06.9 Acute upper respiratory infection, unspecified; R09.89 Other specified symptoms and signs involving the circulatory and respiratory systems; R05.9 Cough, unspecified
CPT/HCPCS: 87633

== ENCOUNTER 2025-03-08 13:52 | Outpatient (AMB) | payer OTHER, SELFPAY ==
--- NOTE | 2025-03-08 14:01 | MHC.OFFWIV ---
Intake Vital Signs 03/08/25 14:02 Height 5 ft 1 in Weight 147 lb BMI 27.8 BP 110/72 Blood Pressure Location Lt brachial Position Sitting Pulse 85 Pulse Source Pulse Oximeter Temp 98.4 F Temp Source Oral Pulse Oximetry (%) 97 Oxygen Delivery Method Room Air Intake Visit Reasons: EP Congestion, cough, left ear pain Intake Note: pt presents with recurring and worsening chest congestion with discomfort chest and mid upper back, coughing, left ear pain, sinus congestion, lethargy, posterior headache Patient Tobacco Use Status: Current everyday Tobacco user Allergies mirabegron (From Myrbetriq) Allergy (Intermediate, Verified 03/08/25 14:07) Hives midazolam (From Versed) Adverse Reaction (Intermediate, Verified 03/08/25 14:07) Rash morphine Adverse Reaction (Intermediate, Verified 03/08/25 14:07) Unknown Do you need a note to return to daycare/school/sports/work: No HPI HPI Comments History of Present Illness Details History - The patient is a 60-year-old female presenting with symptoms of sinusitis and possible ear infection. - She states that she was seen here on 02/18 for ear pain and sinus pain. - She was told that she had fluid in her ear and a sinus infection. - Previously treated with azithromycin for sinus infection, with temporary relief. - Current symptoms include facial pressure, head pressure in the back of the head, and cough with clear sputum. - History of smoking noted. - She has pain in the right ear and facial pressure. 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 - She denies sore throat, abd pain, n/v/d, fever, chills, CP, SOB, or abd pain. Physical Exam General: Cooperative, healthy appearing, comfortable and no acute distress Orientation/consciousness: Patient oriented x3 Limitations: No limitations Head: Pressure in the back of the head, all in the sinuses, back of the eyes Ears: Hearing grossly normal bilaterally, external ears normal, right TM is erythematous, not bulging. Nose: Normal external nose present, normal nares present, and no nasal discharge present Face and sinus: Sinuses tender to palpation in the frontal and maxillary region bilaterally. Mouth: Normal oral and palatal mucosa present and moist mucous membranes noted Throat: Tonsils normal. Uvula is midline. Posterior oropharynx with erythema and no exudates Eyes: Appearance normal, both eyes and all related structures, pressure under the eyes Neck: Normal visual inspection, full ROM. No lymphadenopathy noted Respiratory: Clear to auscultation bilaterally. Normal respiratory effort, able to speak in complete sentences. No respiratory distress, not tachypneic, no tripod positioning and no use of accessory muscles Cardiovascular: Regular rate and rhythm. Normal S1 and S2. No m/r/g noted. Skin: No rashes or lesions noted Patient was informed and verbally consented to the use of an ambient scribe for clinic note documentation during this visit [facility] Medical History Depression Urge incontinence Multiple sclerosis Fibrocystic changes of right breast (~1989) Hyperlipidemia Surgical History Hx of bilateral cataract extraction History of tubal ligation History of appendectomy Family History Father History of quadruple bypass Multiple myeloma Diabetes Heart attack Brother Aortic valve replaced Mother No problems noted. Father No problems noted. Social History Housing: House Alcohol intake: never Patient Tobacco Use Status: Current everyday Tobacco user Cigarette Packs Per Day: 1.5 e-Cigarette/Vaping Use: Currently Using service: No Current occupational status: employed Cognitive needs: No Hearing needs: No Vision needs: Yes (reading glasses) Review of Systems Const All systems reviewed & are unremarkable except as noted in HPI and below Physical Exam Vital Signs: Last Vital Signs Temp 98.4 F 03/08/25 14:02 Pulse 85 03/08/25 14:02 BP 110/72 03/08/25 14:02 Pulse Ox 97 03/08/25 14:02 Oxygen Delivery Method Room Air 03/08/25 14:02 BMI result Body Mass Index 27.8 Assessment & Plan Assessment & Plan (1) Sinus pain: Code(s): J34.89 - Other specified disorders of nose and nasal sinuses (2) Ear pain, right: Code(s): H92.01 - Otalgia, right ear Plan Most likely sinusitis and OM plan - Antibiotic therapy changed to Augmentin due to lack of response to azithromycin. - Prescribed a five-day course of prednisone to manage inflammation. - Ordered testing for COVID-19, RSV, and flu to exclude viral infections. - tylenol or motrin as needed for pain or fever. - will call with the results - follow up with PCP Orders: Orders Resp Pathogen Panel - [facility] [place] J06.9 - Acute upper respiratory infection, unspecified Medications: New amoxicillin-pot clavulanate 875-125 mg 1 tab PO Q12H 14 tabs 0RF prednisone 40 mg (2 x 20 mg) PO DAILY 10 tabs 0RF 5 days Coding Level of Care Code Est Pt Level 4 (52106) Diagnoses Sinus pain J34.89 Ear pain, right H92.01
[2025-03-08 14:02] VITALS: BP 110/72; PULSE 85; TEMP 36.9; O2SAT 97; BMI 27.8
== END 2025-03-08 14:42 | disposition home or self-care (01) ==
PROVIDERS: PCP Physician Assistant; Visit Provider Physician Assistant Medical
DX: J34.89 Other specified disorders of nose and nasal sinuses (principal); H92.01 Otalgia, right ear

== ENCOUNTER 2025-03-20 08:05 | Outpatient (REF) | payer OTHER, SELFPAY ==
--- NOTE | ~2025-03-20 | XR_ITS ---
EXAMINATION: XR CHEST CLINICAL INFORMATION: R05.9 - Cough, unspecified COMPARISON: 09/27/2024. TECHNIQUE: 2 views of the chest were obtained. FINDINGS: The cardiac, hilar, and mediastinal contours are normal. The lungs are clear bilaterally. There is no pneumothorax or pleural effusion. There is no focal osseous or soft tissue abnormality. XR/XR chest 2V IMPRESSION: Normal chest. Electronically signed by: Dylan King MD 03/20/2025 02:10 PM EDT
--- OUTSIDE RECORDS SUMMARY | 2025-03-20 16:48 | XMS_ITS | Clinical Summary ---
Author Organization [facility] it Address [address] [place] [address] Care Team Providers Care Product Support Technician Name Role Phone Jefe Obregon MD Primary Care Provider [phone] Immunizations Immunization Administration Dates Next Due Pfizer SARS-CoV-2 COVID-19, mRNA, LNP-S, preservative free 06/05/2020,05/18/2020 Surgical History Surgery Date Site/Laterality Comments APPENDECTOMY age 15 PROCEDURE: HISTORICAL APPENDECTOMY TONSILLECTOMY age 8 PROCEDURE: HISTORICAL TONSILLECTOMY OTHER SURGICAL HISTORY age 25 PROCEDURE: OR EXC CYST/ABERRANT BREAST TISSUE OPEN 1/> LESION; COMMENT: benign, right breast fibrocystic OTHER SURGICAL HISTORY 2009 PROCEDURE: OR ENDOMETRIAL BX W/WO ENDOCERVIX BX W/O DILAT SPX; COMMENT: negative COLONOSCOPY 2004 or 2005 PROCEDURE: HISTORICAL COLONOSCOPY; COMMENT: [facility], [place] ESOPHAGOGASTRODUODENOSCOPY PROCEDURE: [place] ESOPHAGOGASTRODUODENOSCOPY TRANSORAL DIAGNOSTIC Family History Medical History [...] this topic Medical Devices Implanted Type Area Surgical Elastic Knitter Hand Frame Device Identifier Shelf Expiration Date Model / Serial / Lot Lens Hiram Gandhi Itec Protec Tri-Fix +23.5 Diopter - [id number] - [id number] Implanted:Qty: 1 on 09/12/2020 by Yunier Kidd MD Implants Left: Eye [employer] 08/09/2022 [id number] / [id number] / Lens Tecnis 13mm +22.5 Diopter +1.5 Cylinder Modify C - [id number] - [id number] Implanted:Qty: 1 on 09/18/2020 by Yunier Kidd MD Implants Right: Eye [employer] 08/16/2025 [id number] / [id number] / . Procedures Procedure Name Priority Date/Time [...] on 03/29/2021 1:12 PM. Workstation Name - [id number] Procedure Note Kurt Liu MD - 05/24/2022 [...] MD on 03/29/2021 1:12PM. Workstation Name - [id number] us Heidy Gaytan CNM IMG BI PROCEDURES Final Res ult * Pap smear (09/06/2018 12:00 AM EDT) Case Results Patient Name: MONICA HALL MR#: [id number] Collected Date: 09/06/2018 Reported Date: 09/08/2018 Specimen #[id number] Final Diagnosis Satisfactory for evaluation. Endocervical transformation [...] System unless otherwise stated. Test Performed by: [address] [address] Jb Soler Jr., M.D., [facility], Director HISTORICAL TESTING LAB RESULTING AGENCY Comment:MR#: [id number] 09/06/2018 us Greta Boyer MD LAB CYTOLOGY ORDERABLES Edited Result - Final HISTORICAL TESTING LAB RESULTING AGENCY from Last 3 Months or Most Recently Relevant to Health Maintenance Care Teams Product Support Technician Relationship Specialty Start Date End Date Jefe Obregon MD [address] [place] [address] Dr Byron [place] PCP - General 04/21/22
--- OUTSIDE RECORDS SUMMARY | 2025-03-20 16:48 | XMS_ITS | Clinical Summary ---
Author Organization [facility] Address [address] [place] [address] Care Team Providers Care Range Rider Name Role Phone Jefe Obregon MD Primary Care Provider Allergies Active Allergy Reactions Criticality Noted Date [...] this topic Medical Devices Implanted Type Area Bilingual Speech Language Pathologist Device Identifier Shelf Expiration Date Model / Serial / Lot Lens Tecnis Tecnis Itec Protec Tri-Fix +23.5 Diopter - [id number] - [id number] Implanted:Qty: 1 on 09/12/2020 by Yunier Kidd MD at [facility] Location Lens Left: Eye [employer] 08/09/2022 [id number] / [id number] / Lens Tecnis 13mm +22.5 Diopter +1.5 Cylinder Modify C - [id number] - [id number] Implanted:Qty: 1 on 09/18/2020 by Yunier Kidd MD at [facility] Location Lens Right: Eye [employer] 08/16/2025 [id number] / [id number] / . Advance Directives For more information, please contact: [phone] Documents on File Type Date Recorded Patient Chemical Dependency Professional Expl anation Advance Directive and Living Will 09/05/2013 Care Teams Range Rider Relationship Specialty Start Date End Date Jefe Obregon MD [address] [place] [address] [address] [place] [address] PCP - General Medical Engineer 04/21/22
--- OUTSIDE RECORDS SUMMARY | 2025-03-20 16:48 | XMS_ITS | Encounter Summary ---
Author Organization [facility] Address [address] [place] [address] Care Team Providers Care Cannery Worker Name Role Phone Jefe Obregon MD Primary Care Provider [phone] Encounter Details Date Type Department Care Team Description 08/09/2021 Chronic [place] [address] Susan Figueroa [address] [place] [address] Social History Tobacco Use Types Packs/Day Years [...] on filedocumented in this encounter Care Teams Cannery Worker Relationship Specialty Start Date End Date Jefe Obregon MD [address] [place] [address] Dr [address] [place] [address] PCP - General Technologies Division Chair 04/21/22 documented as of this encounter
== END 2025-03-20 08:06 | disposition home or self-care (01) ==
LOC: HO.XRAY 08:05
PROVIDERS: PCP Physician Assistant; Visit Provider Physician Assistant
DX: R05.9 Cough, unspecified (principal); J32.9 Chronic sinusitis, unspecified; E78.5 Hyperlipidemia, unspecified
CPT/HCPCS: 71046

== ENCOUNTER 2025-03-20 08:05 | Outpatient (AMB) | payer OTHER, SELFPAY ==
--- NOTE | 2025-03-20 07:23 | MHC.PC.OV ---
Vital Signs 03/20/25 08:12 Weight 66.224 kg BP 112/68 Blood Pressure Location Lt brachial Position Sitting Respiration 18 Pulse 81 Pulse Source Pulse Oximeter Temp 97.5 F Temp Source Temporal Artery Scan Pulse Oximetry (%) 97 Oxygen Delivery Method Room Air Intake Visit Reasons: Follow up Sinus infection Technical Project Lead Required: No Accompanied by: Self / Same As Patient Allergies mirabegron (From Myrbetriq) Allergy (Intermediate, Verified 03/20/25 07:23) Hives midazolam (From Versed) Adverse Reaction (Intermediate, Verified 03/20/25 07:23) Rash morphine Adverse Reaction (Intermediate, Verified 03/20/25 07:23) Unknown Medication List - Last Reconciled 03/20/25 by CASSANDRA Sierra albuterol sulfate 90 mcg/actuation (Ventolin HFA) 2 puffs inhalation QID PRN azelastine 2 sprays intranasal BID B.coagulans-digestive enzym 10 2 billion cell (Digestive Advantage Probiotics Plus Gas) caps PO escitalopram oxalate 20 mg PO DAILY evolocumab (Repatha SureClick) 140 mg subcut Q2W levocetirizine (Xyzal) 5 mg PO DAILY Tobacco use date assessed: 01/20/25 Dental Screening Dental Screen Date: 01/20/25 HPI HPI Comments History of Present Illness Details 59-year-old female with history of hyperlipidemia, fibrocystic breast disease, depression, urge incontinence, and smoking history presents to the office today for follow-up. He recently presented to urgent care due to upper respiratory symptoms. She was found to have a left ear infection as well as acute sinusitis. Was prescribed Z-Kennedy which did help somewhat for 2 days but then symptoms returned. She then was experiencing bilateral ear pain and was diagnosed with bilateral otitis media and sinusitis. Was prescribed Augmentin a 5 day course of prednisone. She tells me she has been feeling somewhat better but still has an ongoing productive cough for about 1 week. No defined asthma/COPD diagnosis. She states she still feels a ?twinge? in her left ear. Denies any fevers, chills, sore throat, congestion, sinus pressure, shortness of breath, wheezing. She reports a history of recurrent sinus infections and a ?deviated septum?. Has never followed with ENT. ROS: General: No fevers, malaise, unintentional weight loss HEENT: See HPI Cardiovascular: No chest pain, palpitations, or leg edema Respiratory: No shortness of breath, wheezing, cough GI: No abdominal pain, nausea, vomiting, diarrhea, constipation, melena, hematochezia : No dysuria, hematuria, increased urinary frequency, decreased urinary output MSK: No myalgia, back pain Neuro: No headaches, weakness, paresthesias Skin: No rashes or lesions EXAM: Constitutional - Awake and Alert, No apparent distress Eyes - PERRL Ears-external ears normal, canals clear, TMs with air fluid levels noted Cardiovascular - S1S2, RRR, No edema Respiratory - Normal lung expansion, Normal respiratory effort, No respiratory distress, CTA bilaterally Extremities - no calf tenderness bilaterally, no swelling Skin - Warm/Dry Neurological - Alert & oriented x3 Psychological - Appropriate affect [facility] Medical History Depression Urge incontinence Multiple sclerosis Fibrocystic changes of right breast (~1989) Hyperlipidemia Surgical History Hx of bilateral cataract extraction History of tubal ligation History of appendectomy Family History Father History of quadruple bypass Multiple myeloma Diabetes Heart attack Brother Aortic valve replaced Mother No problems noted. Father No problems noted. Social History Housing: House Alcohol intake: never Patient Tobacco Use Status: Current everyday Tobacco user Cigarette Packs Per Day: 1.5 e-Cigarette/Vaping Use: Currently Using service: No Current occupational status: employed Cognitive needs: No Hearing needs: No Vision needs: Yes (reading glasses) Questionnaire Thrive Questionnaire Date Thrive assessed: 01/20/25 HARJEET-7 AMB Questionnaire HARJEET-7 Date HARJEET - 7 assessed: 01/20/25 Source: Developed by Drs. Anjum Higgins, Val Luna, Shoaib Baez and colleagues, with an educational barbara from [employer] Physical exam (Primary Care) Tobacco/Smoking Status: Tobacco use Status Tobacco use date assessed 01/20/25 03/20/25 07:24 Patient Tobacco Use Status Current everyday Tobacco 10/20/25 07:24 e-Cigarette/Vaping Use Currently Using 03/20/25 07:24 Thrive Assessment: Date of Thrive Assessment Date Thrive assessed 01/20/25 03/20/25 07:24 Coding Level of Care Code Est Pt Level 4 (18121) Diagnoses Cough R05.9 Recurrent sinusitis J32.9 Assessment & Plan Assessment & Plan (1) Cough: Code(s): R05.9 - Cough, unspecified Category: Medical Plan: Possibly postviral bronchitis. No active wheezing on exam. Albuterol inhaler prescribed. Also educated that following smoking cessation, can develop cough which will resolve (2) Recurrent sinusitis: Code(s): J32.9 - Chronic sinusitis, unspecified Category: Medical Plan: Refer to ENT. Recommend changing oral antihistamine. Given prescription for Xyzal. Humidifiers, nasal sprays, nasal rinses Plan Follow-up in the office in 4 months. Orders: Orders XR chest 2V Today R05.9 - Cough, unspecified Referrals Ear/Nose/Throat Referral J32.9 - Chronic sinusitis, unspecified, R05.9 - Cough, unspecified Medications: New albuterol sulfate 90 mcg/actuation (Ventolin HFA) 2 puffs inhalation QID PRN 8.5 grams 0RF shortness of breath or wheezing azelastine administer into each nostril 2 sprays intranasal BID 30 mL 0RF
--- OUTSIDE RECORDS SUMMARY | 2025-03-20 08:11 | XMS_ITS | Encounter Summary ---
Author Organization [facility] Address [address] [place] [address] Care Team Providers Care Utility Worker Driver Name Role Phone Jefe Obregon MD Primary Care Provider [phone] Encounter Details Date Type Department Care Team Description 08/09/2021 [place] [address] Susan Figueroa [address] [place] [address] Social History Tobacco Use Types Packs/Day Years [...] on filedocumented in this encounter Care Teams Utility Worker Driver Relationship Specialty Start Date End Date Jefe Obregon MD [address] [place] [address] Dr [address] [place] [address] PCP - General Hand Flesher 04/21/22 documented as of this encounter
--- OUTSIDE RECORDS SUMMARY | 2025-03-20 08:11 | XMS_ITS | Patient Health Record ---
Author Organization [facility] Address [address] [place] [address] Care Team Providers Care Oral Pathologist Name Role Phone SYED YUEN M.D. Primary Care Provider RASHEEDA Kaiser Unavailable [phone] Allergies Allergen (clinical drug ingredient) Drug/Non Drug [...] W/U Status Risk Notes Problem Urinary incontinence (843211895) Unspecified urinary incontinence (R32) Active confirmed Problem Hyperlipidemia (54562753) Hyperlipidemia, unspecified (E78.5) Active confirmed Problem Mild recurrent major depression (73214095) Major depressive disorder, recurrent, mild (F33.0) Active confirmed Problem Localized morphea (844398481) Lichen sclerosus et atrophicus (L90.0) Active confirmed Problem COVID-19 (902423679) COVID-19 (U07.1) Active confirmed Vital Signs Temperature 98.0 degrees Fahrenheit 03/28/2024 Blood pressure diastolic 70 mm Hg 03/28/2024 Height 61 in 03/28/2024 Blood pressure systolic 120 mm Hg 03/28/2024 Weight 149 lbs 03/28/2024 BMI 28.15 kg/m2 03/28/2024 Encounters Encounter Location Date Provider Diagnosis [facility] [address] [place] [address] 03/28/2024 RASHEEDA HUMPHRIES Encounter for gynecological examination [...] Name:RASHEEDA HUMMEL Ari, 03/31/2025 02:30:00 PM, [address], [place], [address], Insurance Providers Payer Name Payer Address Payer Phone Subscriber Number Group Number Insured Name Patient Relationship to Insured Coverage Start Date Coverage End Date [employer] MD MELINA SMITH [id number] [place] [address] [id number] LASHONDA HOROWITZ Self - patient is the insured Medical (General) History Medical History History ICD Code Major depressive disorder, recurrent, mi ld F33.0 Hyperlipidemia, unspecified E78.5 COVID-19 U07.1 Lichen sclerosus et atrophicus L90.0 Surgical History Surgery Date(Month/Year) Appendectomy 10/1980 Tonsillectomy 1969' Bilateral tubal ligation 1997 Hospitalization History Reason Date(Month/Year) Diverticulitis [facility] 06/2021 Childbirth
--- OUTSIDE RECORDS SUMMARY | 2025-03-20 08:11 | XMS_ITS | Clinical Summary ---
Author Organization [facility] Address [address] [place] [address] Care Team Providers Care Hazmat Cdl A Driver Name Role Phone Jefe Obregon MD Primary Care Provider [phone] Allergies Active Allergy Reactions Criticality Noted Date [...] 07/16/2016 Encounter for annual routine [facility]necological exami [facility] 04/22/2016 Abdominal pain, left lower quadrant [...] topic Medical Devices Implanted Type Area Client Technologies Analyst Device Identifier Shelf Expiration Date Model / Serial / Lot Lens Tecnis Tecnis Itec Protec Tri-Fix +23.5 Diopter - [id number] - [id number] Implanted:Qty: 1 on 09/12/2020 by Yunier Kidd MD at [facility] Location Lens Left: Eye [employer] 08/09/2022 [id number] / [id number] / Lens Tecnis 13mm +22.5 Diopter +1.5 Cylinder Modify C - [id number] - [id number] Implanted:Qty: 1 on 09/18/2020 by Yunier Kidd MD at [facility] Location Lens Right: Eye [employer] 08/16/2025 [id number] / [id number] / . Advance Directives For more information, please contact: [phone] Documents on File Type Date Recorded Patient Manager Trainee Expl anation Advance Directive and Living Will 09/05/2013 Care Teams Hazmat Cdl A Driver Relationship Specialty Start Date End Date Jefe Obregon MD [address] [place] [address] [address] [place] [address] PCP - General Metal Caster 04/21/22
--- OUTSIDE RECORDS SUMMARY | 2025-03-20 08:11 | XMS_ITS | Clinical Summary ---
Author Organization [facility] Address [address] [place] [address] Care Team Providers Care Pattern Designer Name Role Phone Jefe Obregon MD Primary Care Provider [phone] Immunizations Immunization Administration Dates Next Due Pfizer SARS-CoV-2 COVID-19, mRNA, LNP-S, preservative free 06/05/2020,05/18/2020 Surgical History Surgery Date Site/Laterality Comments APPENDECTOMY age 15 PROCEDURE: HISTORICAL APPENDECTOMY TONSILLECTOMY age 8 PROCEDURE: HISTORICAL TONSILLECTOMY OTHER SURGICAL HISTORY age 25 PROCEDURE: MD EXC CYST/ABERRANT BREAST TISSUE OPEN 1/> LESION; COMMENT: benign, right breast fibrocystic OTHER SURGICAL HISTORY 2009 PROCEDURE: MD ENDOMETRIAL BX W/WO ENDOCERVIX BX W/O DILAT SPX; COMMENT: negative COLONOSCOPY 2004 or 2005 PROCEDURE: HISTORICAL COLONOSCOPY; COMMENT: [facility], [place] ESOPHAGOGASTRODUODENOSCOPY PROCEDURE: [place] ESOPHAGOGASTRODUODENOSCOPY TRANSORAL DIAGNOSTIC Family History Medical History [...] Health Maintenance Due Date Last Done Comments Colorectal Cancer Screening: Colonoscopy 1963 DTaP,Tdap,and Td Vaccines (1 - Tdap) 1982 Pneumococcal Vaccine: 50+ Years (1 of 1 - PCV) 2013 Zoster Vaccines (1 of 2) 2013 Cervical Cancer Screening: Pap Smear 09/06/2021 09/06/2018 HIV Screening 05/07/2022 Hepatitis C Screening 05/07/2022 [...] this topic Medical Devices Implanted Type Area Solar Resource Assessor Device Identifier Shelf Expiration Date Model / Serial / Lot Lens Hiram Gandhi Itec Protec Tri-Fix +23.5 Diopter - [id number] - [id number] Implanted:Qty: 1 on 09/12/2020 by Yunier Kidd MD Implants Left: Eye [employer] 08/09/2022 [id number] / [id number] / Lens Tecnis 13mm +22.5 Diopter +1.5 Cylinder Modify C - [id number] - [id number] Implanted:Qty: 1 on 09/18/2020 by Yunier Kidd MD Implants Right: Eye [employer] 08/16/2025 [id number] / [id number] / . Procedures Procedure Name Priority Date/Time [...] on 03/29/2021 1:12 PM. Workstation Name - [id number] Procedure Note Kurt Liu MD - 05/24/2022 [...] MD on 03/29/2021 1:12PM. Workstation Name - [id number] us Heidy Gaytan CNM IMG BI PROCEDURES Final Res ult * Pap smear (09/06/2018 12:00 AM EDT) Case Results Patient Name: MONICA HALL MR#: [id number] Collected Date: 09/06/2018 Reported Date: 09/08/2018 Specimen #[id number] Final Diagnosis Satisfactory for evaluation. Endocervical transformation [...] System unless otherwise stated. Test Performed by: [address] [address] Jb Soler Jr., M.D., [facility], Director HISTORICAL TESTING LAB RESULTING AGENCY Comment:MR#: [id number] 09/06/2018 us Greta Boyer MD LAB CYTOLOGY ORDERABLES Edited Result - Final HISTORICAL TESTING LAB RESULTING AGENCY from Last 3 Months or Most Recently Relevant to Health Maintenance Care Teams Pattern Designer Relationship Specialty Start Date End Date Jefe Obregon MD [address] [place] [address] Dr Byron [place] PCP - General 04/21/22
[2025-03-20 08:12] VITALS: BP 112/68; PULSE 81; RESP 18; TEMP 36.4; O2SAT 97
== END 2025-03-20 08:30 | disposition home or self-care (01) ==
LOC: HO.HMCHD 08:06
PROVIDERS: PCP Physician Assistant; Visit Provider Physician Assistant
DX: R05.9 Cough, unspecified (principal); J32.9 Chronic sinusitis, unspecified

== ENCOUNTER → 2025-03-20 13:40 | Outpatient (BNV) | payer OTHER, SELFPAY | PROVIDERS: PCP Physician Assistant; Visit Provider Radiology Diagnostic Radiology | DX: R05.9 Cough, unspecified (principal) | CPT/HCPCS: 71046 ==

== ENCOUNTER 2025-05-02 06:36 | Outpatient (REF) | payer OTHER, SELFPAY ==
--- OUTSIDE RECORDS SUMMARY | 2025-05-02 06:40 | XMS_ITS | Encounter Summary ---
Author Organization [facility] Address [address] [place] [address] Care Team Providers Care Blanchard Grinder Operator Name Role Phone Jefe Obregon MD Primary Care Provider [phone] Encounter Details Date Type Department Care Team Description 08/09/2021 [place] [address] Susan Figueroa [address] [place] [address] Social History Tobacco Use Types Packs/Day Years [...] on filedocumented in this encounter Care Teams Blanchard Grinder Operator Relationship Specialty Start Date End Date Jefe Obregon MD [address] [place] [address] [address] [place] [address] PCP - General Media Technician 04/21/22 documented as of this encounter
--- OUTSIDE RECORDS SUMMARY | 2025-05-02 06:40 | XMS_ITS | Clinical Summary ---
Author Organization [facility] Address [address] [place] [address] Care Team Providers Care Sap Director Name Role Phone Jefe Obregon MD Primary Care Provider [phone] Immunizations Immunization Administration Dates Next Due Pfizer SARS-CoV-2 COVID-19, mRNA, LNP-S, preservative free 06/05/2020,05/18/2020 Surgical History Surgery Date Site/Laterality Comments APPENDECTOMY age 15 PROCEDURE: HISTORICAL APPENDECTOMY TONSILLECTOMY age 8 PROCEDURE: HISTORICAL TONSILLECTOMY OTHER SURGICAL HISTORY age 25 PROCEDURE: [place] EXC CYST/ABERRANT BREAST TISSUE OPEN 1/> LESION; COMMENT: benign, right breast fibrocystic OTHER SURGICAL HISTORY 2009 PROCEDURE: [place] ENDOMETRIAL BX W/WO ENDOCERVIX BX W/O DILAT SPX; COMMENT: negative COLONOSCOPY 2004 or 2005 PROCEDURE: HISTORICAL COLONOSCOPY; COMMENT: [facility] [place] ESOPHAGOGASTRODUODENOSCOPY PROCEDURE: [place] ESOPHAGOGASTRODUODENOSCOPY TRANSORAL DIAGNOSTIC Family History Medical History Relation Name Comments Coronary artery disease Father s/p CABG, 1990 Multiple myeloma Father Diabetes Mother Relation Name Status Comments Father Mother Social History Tobacco Use Types Packs/Day Years Used Date Smoking Tobacco: Former Cigarettes 0.5 Q uit: 10/30/2010 Smokeless Tobacco: Never Alcohol [...] this topic Medical Devices Implanted Type Area Maintenance Mechanic Supervisor Device Identifier Shelf Expiration Date Model / Serial / Lot Lens Tecellyn Gandhi Itec Protec Tri-Fix +23.5 Diopter - [id number] - [id number] Implanted:Qty: 1 on 09/12/2020 by Yunier Kidd MD Implants Left: Eye [employer] 08/09/2022 [id number] / [id number] / Lens Tecnis 13mm +22.5 Diopter +1.5 Cylinder Modify C - [id number] - [id number] Implanted:Qty: 1 on 09/18/2020 by Yunier Kidd MD Implants Right: Eye [employer] 08/16/2025 [id number] / [id number] / . Procedures Procedure Name Priority Date/Time [...] on 03/29/2021 1:12 PM. Workstation Name - [id number] Procedure Note Kurt Liu MD - 05/24/2022 [...] MD on 03/29/2021 1:12PM. Workstation Name - [id number] us Heidy Gaytan CNM IMG BI PROCEDURES Final Res ult * Pap smear (09/06/2018 12:00 AM EDT) Case Results Patient Name: MONICA HALL MR#: [id number] Collected Date: 09/06/2018 Reported Date: 09/08/2018 Specimen #[id number] Final Diagnosis Satisfactory for evaluation. Endocervical transformation [...] System unless otherwise stated. Test Performed by: [address] [address] Jb Soler Jr., M.D., [facility], Director HISTORICAL TESTING LAB RESULTING AGENCY Comment:MR#: [id number] 09/06/2018 us Greta Boyer MD LAB CYTOLOGY ORDERABLES Edited Result - Final HISTORICAL TESTING LAB RESULTING AGENCY from Last 3 Months or Most Recently Relevant to Health Maintenance Care Teams Sap Director Relationship Specialty Start Date End Date Jefe Obregon MD [address] [place] [address] Dr Byron [place] PCP - General 04/21/22
--- OUTSIDE RECORDS SUMMARY | 2025-05-02 06:40 | XMS_ITS ---
Author Organization Unknown ENCOUNTERS Encounter Performer Location Date Diagnosis Diagnosis Status Pre Admit [address] [address] [id number] Outpatient [facility] [address] [place] [phone] [id number] [facility] [address] [address] [id number] PILI Pre Admit [address] [phone] [id number] [address] [id number] [facility] Pre Admit [address] [address] [id number] *Note: Encounters from your own facility or health system may be excluded. Allergies, Adverse Reactions, Alerts Allergen Type Severity Identification Date morphine drug allergy 3 20230324 midazolam drug allergy 3 [id number] mirabegron drug allergy 3 [id number] Medications Name Date Quantity Days Supplied GPI Number
--- OUTSIDE RECORDS SUMMARY | 2025-05-02 06:40 | XMS_ITS | Clinical Summary ---
Author Organization [facility] Address [address] [place] [address] Care Team Providers Care Pediatrics Physician Name Role Phone Jefe Obregon MD Primary Care Provider [phone] Allergies Active Allergy Reactions Criticality Noted Date [...] this topic Medical Devices Implanted Type Area Outreach Analyst Device Identifier Shelf Expiration Date Model / Serial / Lot Lens Tecnis Tecnis Itec Protec Tri-Fix +23.5 Diopter - [id number] - [id number] Implanted:Qty: 1 on 09/12/2020 by Yunier Kidd MD at [facility] Location Lens Left: Eye [employer] 08/09/2022 [id number] / [id number] / Lens Tecnis 13mm +22.5 Diopter +1.5 Cylinder Modify C - [id number] - [id number] Implanted:Qty: 1 on 09/18/2020 by Yunier Kidd MD at [facility] Location Lens Right: Eye [employer] 08/16/2025 [id number] / [id number] / . Advance Directives For more information, please contact: [phone] Documents on File Type Date Recorded Patient Refractory Mixer Expl anation Advance Directive and Living Will 09/05/2013 Care Teams Pediatrics Physician Relationship Specialty Start Date End Date Jefe Obregon MD [address] [place] [address] [address] [place] [address] PCP - General Geologist Petroleum 04/21/22
[2025-05-02 07:09] LABS: Alanine Aminotransferase 19 U/L (0-31); Albumin Level 4.4 g/dL (3.5-5.0); Alkaline Phosphatase 112 U/L (39-117); Aspartate Amino Transferase 36 U/L (5-31); Cholesterol 242 mg/dL (<200); HDL Cholesterol 66 mg/dL (>40); Total Protein 7.2 g/dL (6.5-8.0); Triglycerides 81 mg/dL (<150)
== END 2025-05-02 06:37 | disposition home or self-care (01) ==
LOC: HO.LAB 06:36
PROVIDERS: Visit Provider Internal Medicine
DX: I25.10 Atherosclerotic heart disease of native coronary artery without angina pectoris (principal); E78.5 Hyperlipidemia, unspecified
CPT/HCPCS: 36415; 80061; 80076

== ENCOUNTER 2025-05-04 14:06 | Outpatient (AMB) | payer OTHER, SELFPAY ==
--- OUTSIDE RECORDS SUMMARY | 2025-03-31 09:30 | XMS_ITS ---
Author Organization [facility] Address [address] [address] Care Team Providers Care Automotive Engineering Technician Name Role Phone SYED YUEN M.D. 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 Encounters Encounter Location Date Provider Diagnosis [facility] [address] [address] 03/31/2025 RASHEEDA HUMPHRIES Encounter for gynecological examination (general) (routine) without abnormal findings Z01.419 ; Encounter for screening mammogram for malignant neoplasm of breast Z12.31 and Encounter for screening for infections with a predominantly sexual mode of transmission Z11.3 Assessments Encounter Date Diagnosis (ICD Code) Assessment Notes Treatment Notes Treatment Clinical Notes Section Notes 03/31/2025 Encounter for gynecological examination (general) (routine) without abnormal findings (ICD-10 - Z01.419) During the visit, the following areas of concern were addressed: Discussed cervical cancer screening with either cytology alone every 3 years or high risk HPV co-testing every 5 years as per ASCCP guidelines. Advised continued annual pelvic exams. Patient encouraged to increase her level of exercise. SBE technique encouraged/tau ght. Patient reminded when annual mammogram is due. Patient encouraged to keep colon screening up to date. 03/31/2025 Encounter for screening mammogram for malignant neoplasm of breast (ICD-10 - Z12.31) 03/31/2025 Encounter for screening for infections with a predominantly sexual mode of transmission (ICD-10 - Z11.3) Plan Of Treatment Treatment Notes Assessment Notes [...] encouraged to keep colon screening up to date. 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 Subjective: * Chief Complaints: * 1 . 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 S he has been in state of good health since her last exam.? She has the following concerns: In 2022 s he reported urinary incontinence - wearing Poise pad -- she was losing cupfuls of urine. She reported she has been doing kegels to help. She reports she would get the urge and couldn't get to the bathroom in time. She had been on myrbetriq, has an allergy. She was referred to [facility]. She reports she has been on a medication that helps to stop the incontinence (can't recall name) and it has been working well. S he has received the Pfizer Covid-19 vaccine. S he uses Clobetasol for lichen sclerosis. She does need a refill. R elationship status: * for 5 years. She is not sexually active, due to 's advanced age (71). Sexual partner(s): male. She does not wish to have STI testing. S he does report vaginal dryness - uses clobetasol with good effect. She does not have hot flashes/night sweats. T he patient has never had an abnormal pap smear. Her most recent pap smear was 03/24/23 - NIL, neg HR HPV. Due for cotesting in 2027. S he has not been diagnosed with breast cancer. She does *not have a family history of breast cancer. Her last mammogram was *06/05/23. S he does *not have a family history of colon cancer. She a has had a colonoscopy. The last colonoscopy was 10/25/21. She reports a 5 yr follow up due to polyps. T he patient does* exercise. She exercises x 6-7 days/week by walking. * ROS: A nnual Burn Out Scarfing Operator Exam ROS: Bowel habit changes d enies. B ladder symptoms d enies. V aginal discharge, unusual d enies. V aginal itch or odor d enies. w eight or appetite changes d enies. C hest pains, SOB d enies. d epression d enies.? B reast: Denies B reast lump. D enies N ipple discharge.? H ematology: Denies S wollen glands. S kin: Patient denies c hanging moles. P sychiatric: Denies A nxiety. * Medical History: Objective: * Vitals: * Examination: G eneral Examination: GENERAL APPEARANCE: i n no acute distress, well developed, well nourished, cigar making machine supervisor present in room. HEAD: n ormocephalic, atraumatic. NECK/THYROID: n lópez supple, full range of motion, thyroid normal. LYMPH NODES: n o axillary or supraclavicular adenopathy.? SKIN: normal, good turgor, no rashes, no suspicious lesions. BREASTS: normal, no dimpling, no discharge, no drainage, no masses palpable bilaterally, nontender. ABDOMEN: soft, non-tender, non distended without masses or hepatosplenomegay. RECTAL: normal tone, no masses palpable. BACK: no costovertebral angle tenderness. FEMALE GENITOURINARY: V ulva without lesions or masses, vagina pink without abnormal discharge, lesions or masses, cervix appears normal and is not tender to palpation, uterus is normal size, mobile, nontender and anteverted, ovaries are not palpable. NEUROLOGIC: alert and oriented, gait normal. PSYCH: alert, oriented, cognitive function intact, cooperative with exam, good eye contact, mood/affect full range, speech clear. Assessment: * Assessment: 1. E ncounter for gynecological examination (general) (routine) without abnormal findings - Z01.419 (Primary) 2 . E ncounter for screening mammogram for malignant neoplasm of breast - Z12.31 3 . E ncounter for screening for infections with a predominantly sexual mode of transmission - Z11.3 Plan: * Treatment: 2. E ncounter for screening mammogram for malignant neoplasm of breast I maging: MM Digital Screening Mammogram 3D * Follow Up: 1 Year (Reason: Yearly Burn Out Scarfing Operator Exam) * Images: Billing Information: * Visit Code: 32512 Preventive Care Est Pt. Age 40-64. 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 She has been in state of good health since her last exam. She has the following concerns: In 2022 she reported urinary incontinence - wearing Poise pad -- she was losing cupfuls of urine. She reported she has been doing kegels to help. She reports she would get the urge and couldn't get to the bathroom in time. She had been on myrbetriq, has an allergy. She was referred to [facility]. She reports she has been on a medication that helps to stop the incontinence (can't recall name) and it has been working well. She has received the Pfizer Covid-19 vaccine. She uses Clobetasol for lichen sclerosis. She does need a refill. Relationship status: * for 5 years. She is not sexually active, due to 's advanced age (71). Sexual partner(s): male. She does not wish [...] been diagnosed with breast cancer. She does *not have a family history of breast cancer. Her last mammogram was *06/05/23. She does *not have a family history of colon cancer. She a has had a colonoscopy. The last colonoscopy was 10/25/21. She reports a 5 yr follow up due to polyps. The patient does* exercise. She exercises x 6-7 days/week by walking. Examination Category Sub-Category Detail Notes Category Not es General Examination GENERAL APPEARANCE: in no ac edwin distress, well developed, well nourished, cigar making machine supervisor present in room HEAD: normocephalic, atrau matic [...] GENITOURINARY: Vulva without lesi ons or masses, vagina pink without abnormal discharge, lesions or masses, cervix appears normal and is not tender to palpation, uterus is normal size, mobile, nontender and anteverted, ovaries are not palpable
--- NOTE | 2025-05-04 14:16 | A.OFFVIS_ITS ---
Intake Visit Reasons: 6m/PVR/UA Intake Note: Patient is present for 6M/PVR/UA Urology Medication:NONE Antibiotic Allergy:NONE Blood Thinner:NONE LAST PVR:0ML'S TODAY'S PVR:54ML'S Drug And Alcohol Treatment Specialist Required: No Allergies mirabegron (From Myrbetriq) Allergy (Intermediate, Verified 05/04/25 14:56) Hives midazolam (From Versed) Adverse Reaction (Intermediate, Verified 05/04/25 14:56) Rash morphine Adverse Reaction (Intermediate, Verified 05/04/25 14:56) Unknown Medication List - Last Reconciled 05/04/25 by ROSELINE Cary- albuterol sulfate 90 mcg/actuation (Ventolin HFA) 2 puffs inhalation QID PRN azelastine 2 sprays intranasal BID B.coagulans-digestive enzym 10 2 billion cell (Digestive Advantage Probiotics Plus Gas) caps PO escitalopram oxalate 20 mg PO DAILY evolocumab (Repatha SureClick) 140 mg subcut Q2W levocetirizine (Xyzal) 5 mg PO DAILY HPI Comments Details: Monica is a very pleasant 60-year-old female patient of Dr. Israel. She has a past medical history of hyperlipidemia and nicotine dependence. She presents to the office today for follow-up of her mixed urinary incontinence. In discussion with the patient today she reports to be doing and feeling well. She reports significant improvement in mixed urinary incontinent episodes she had been experiencing. She reports she has since quit smoking in discusses how helpful this has been for overall health and well-being. She currently denies any bothersome urinary issues or concerns. Previous workup has included a retroperitoneal ultrasound 08/22 noting bilateral kidneys with no calculi, lesions, and or hydronephrosis. The bladder is distended and normal. Bilateral ureteral jets are demonstrated. Pre void bladder volume is approximately 185 mL. Postvoid bladder volume is approximately 10 mL. Unremarkable renal ultrasound. She has history of 2 vaginal births, average size babies, and labors to be somewhat short. She has since completed pelvic floor therapy and also discusses how helpful this has been. In office urinalysis results reviewed with the patient today. PVR 54 mL she is no longer utilizing Nguyen pads. She otherwise offers no other issues or concerns at this time. Urine cytology 09/22 & 11/23 Negative for high-grade urothelial carcinoma. [facility] Medical History Depression Urge incontinence Multiple sclerosis Fibrocystic changes of right breast (~1989) Hyperlipidemia Surgical History Hx of bilateral cataract extraction History of tubal ligation History of appendectomy Family History Father History of quadruple bypass Multiple myeloma Diabetes Heart attack Brother Aortic valve replaced Mother No problems noted. Father No problems noted. Social History Housing: House Alcohol intake: never Patient Tobacco Use Status: Current everyday Tobacco user Cigarette Packs Per Day: 1.5 e-Cigarette/Vaping Use: Currently Using [employer] service: No Current occupational status: employed Cognitive needs: No Hearing needs: No Vision needs: Yes (reading glasses) Review of Systems Const All systems reviewed & are unremarkable except as noted in HPI and below Physical Exam Const General: cooperative, healthy appearing, comfortable, no acute distress, well developed, alert and awake Orientation/consciousness: patient oriented x3 Limitations: no limitations HEENT Head: Yes normal to inspection, Yes normocephalic and Yes atraumatic Ears: hearing grossly normal bilaterally Eyes General: appearance normal, both eyes and all related structures Neck Neck: Yes normal visual inspection and Yes trachea midline Chest Chest palpation & inspection: normal inspection of the chest Resp Effort & Inspection: normal respiratory effort and able to speak in complete sentences Cardio Rate: regular rate GI Inspection: Yes normal to inspection General: Yes no CVA tenderness Back/Spine/Pelvis Back: no CVA tenderness Skin General skin exam: no rashes or lesions noted Neuro General: patient oriented x3 Extrem General: Yes normal to inspection Psych Appearance: grossly normal and well kempt Mental Status: mental status grossly normal Speech and movement: Normal speech and movement present and Clear speech present Affect: normal affect Attitude: cooperative Thought process: Normal thought process present Thought content: Normal thought content present Insight: Fair insight present (Psych) Judgement: Fair judgement present (Psych) Office Procedures Post Void Residual Post Residual Void Post Void Residual (PVR): 54 02151-Abka Void Residual by ultrasound Results AMB Urinalysis, Automated UA Leukoctes 0 Gus/uL Last Edit by VIRGINIA Rose on 05/04/25 14:34 UA Nitrite Negative Last Edit by Wilver Vanegas [facility] on 05/04/25 14:34 UA Urobilinogen 0.2 mg/dL Last Edit by Wilver Vanegas [facility] on 05/04/25 14:3 4 UA Protein 0 mg/dL Last Edit by Wilver Vanegas [facility] on 05/04/25 14:34 UA pH 6.0 Last Edit by Wilver Vanegas [facility] on 05/04/25 14:34 UA Blood 0 Deep/uL Last Edit by Wilver Vanegas [facility] on 05/04/25 14:34 UA Specific [place] 1.015 Last Edit by Wilver Vanegas [facility] on 05/04/25 14: 34 UA Ketone Negative Last Edit by Wilver Vanegas [facility] on 05/04/25 14:34 UA Bilirubin 0 mg/dL Last Edit by Wilver Vanegas [facility] on 05/04/25 14:34 UA Glucose 0 mg/dL Last Edit by Wilver Vanegas [facility] on 05/04/25 14:34 Assessment & Plan Assessment & Plan (1) Mixed stress and urge urinary incontinence: Code(s): N39.46 - Mixed incontinence Category: Medical (2) Urge incontinence: Code(s): N39.41 - Urge incontinence Category: Medical (3) Microscopic hematuria: Code(s): R31.29 - Other microscopic hematuria Category: Medical Plan In office urinalysis results reviewed with the patient today; as noted above. PVR 54 mL. She currently denies any bothersome urinary issues or concerns. She reports be happy with current voiding parameters. All questions were answered. Follow-up PRN Orders: Orders AMB Urinalysis Automated Today Z13.9 - Encounter for screening, unspecified Patient Instructions: The patient had an opportunity to ask questions regarding the treatment plan. All questions were answered. Physical exam, labs, and imaging were discussed and reviewed in detail. As well as risks, benefits, and discussion of treatment choices. No major barriers to understanding were identified. The patient expressed understanding and agreement with the above treatment plan. The patient was made aware they should contact our office by phone for worsening of their current condition, the appearance of new symptoms, or with any questions or concerns. Compliance is encouraged with any medications and follow up testing that is ordered. It is a privilege to be allowed the opportunity to participate in? your urological care.? Again, if you have any questions or co ncerns If you have any questions or concerns please do not hesitate to contact me. The office is [phone]. This note is constructed using voice recognition software. While every effort has been made to ensure accuracy guest advisor errors may have been included. Yours sincerely, ANUJ Cary Coding Level of Care Code Est Pt Level 3 (17427) Complex visit Add On G2211 Diagnoses Mixed stress and urge urinary incontinence N39.46 Urge incontinence N39.41 Microscopic hematuria R31.29 CPT Codes Post Residual Void - PVR CPT Code: 51800-Zesi Void Residual by ultrasound ([id number])
--- OUTSIDE RECORDS SUMMARY | 2025-05-04 19:29 | XMS_ITS ---
Author Organization Unknown ENCOUNTERS Encounter Performer Location Date Diagnosis Diagnosis Status Pre Admit [address] [id number] Outpatient [facility] [address] [place] [phone] [id number] [facility] Emergency [address] [address] [id number] P[facility] Pre Admit [address] [phone] [id number] Emergency [address] [address] [id number] PILI Pre Admit [address] [id number] *Note: Encounters from your own facility or health system may be excluded. Allergies, Adverse Reactions, Alerts Allergen Type Severity Identification Date morphine drug allergy 3 20230324 midazolam drug allergy 3 20230324 mirabegron drug allergy 3 [id number] Medications Name Date Quantity Days Supplied GPI Number
--- OUTSIDE RECORDS SUMMARY | 2025-05-04 19:29 | XMS_ITS | Clinical Summary ---
Author Organization [facility] Prior to 10/29/24 Address [address] [place] [address] Care Team Providers Care Engine Hostler Name Role Phone Jefe Obregon MD Primary Care Provider [phone] Allergies Active Allergy Reactions Criticality Noted Date [...] this topic Medical Devices Implanted Type Area Hi Teacher Device Identifier Shelf Expiration Date Model / Serial / Lot Lens Tecnis Tecnis Itec Protec Tri-Fix +23.5 Diopter - [id number] - [id number] Implanted:Qty: 1 on 09/12/2020 by Yunier Kidd MD at [facility] Location Lens Left: Eye [employer] 08/09/2022 [id number] / [id number] / Lens Tecnis 13mm +22.5 Diopter +1.5 Cylinder Modify - [id number] - [id number] Implanted:Qty: 1 on 09/18/2020 by Yunier Kidd MD at [facility] Location Lens Right: Eye [employer] 08/16/2025 [id number] / [id number] / . Advance Directives For more information, please contact: [phone] Documents on File Type Date Recorded Patient Applications Chemist Expl anation Advance Directive and Living Will 09/05/2013 Care Teams Engine Hostler Relationship Specialty Start Date End Date Jefe Obregon MD [address] [place] [address] [address] [place] [address] PCP - General Cardiology Teacher 04/21/22
--- OUTSIDE RECORDS SUMMARY | 2025-05-04 19:29 | XMS_ITS | Clinical Summary ---
Author Organization [facility] it Address [address] [place] [address] Care Team Providers Care Auto Polisher Name Role Phone Jefe Obregon MD Primary Care Provider [phone] Immunizations Immunization Administration Dates Next Due Pfizer SARS-CoV-2 COVID-19, mRNA, LNP-S, preservative free 06/05/2020,05/18/2020 Surgical History Surgery Date Site/Laterality Comments APPENDECTOMY age 15 PROCEDURE: HISTORICAL APPENDECTOMY TONSILLECTOMY age 8 PROCEDURE: HISTORICAL TONSILLECTOMY OTHER SURGICAL HISTORY age 25 PROCEDURE: CO EXC CYST/ABERRANT BREAST TISSUE OPEN 1/> LESION; COMMENT: benign, right breast fibrocystic OTHER SURGICAL HISTORY 2009 PROCEDURE: CO ENDOMETRIAL BX W/WO ENDOCERVIX BX W/O DILAT SPX; COMMENT: negative COLONOSCOPY 2004 or 2005 PROCEDURE: HISTORICAL COLONOSCOPY; COMMENT: [facility], [place] ESOPHAGOGASTRODUODENOSCOPY PROCEDURE: CO ESOPHAGOGASTRODUODENOSCOPY TRANSORAL DIAGNOSTIC Family History Medical History [...] this topic Medical Devices Implanted Type Area Dog Barber Device Identifier Shelf Expiration Date Model / Serial / Lot Lens Tecellyn Gandhi Itec Protec Tri-Fix +23.5 Diopter - [id number] - [id number] Implanted:Qty: 1 on 09/12/2020 by Yunier Kidd MD Implants Left: Eye [employer] 08/09/2022 [id number] / [id number] / Lens Tecnis 13mm +22.5 Diopter +1.5 Cylinder Modify C - [id number] - [id number] Implanted:Qty: 1 on 09/18/2020 by Yunier Kidd MD Implants Right: Eye [employer] 08/16/2025 [id number] / [id number] / . Procedures Procedure Name Priority Date/Time [...] on 03/29/2021 1:12 PM. Workstation Name - [id number] Procedure Note Kurt Liu MD - 05/24/2022 [...] MD on 03/29/2021 1:12PM. Workstation Name - [id number] us Heidy Gaytan CNM IMG BI PROCEDURES Final Res ult * Pap smear (09/06/2018 12:00 AM EDT) Case Results Patient Name: MONICA HALL MR#: [id number] Collected Date: 09/06/2018 Reported Date: 09/08/2018 Specimen #[id number] Final Diagnosis Satisfactory for evaluation. Endocervical transformation [...] System unless otherwise stated. Test Performed by: [address] [address] Jb Soler Jr., M.D., [facility], Director HISTORICAL TESTING LAB RESULTING AGENCY Comment:MR#: [id number] 09/06/2018 us Greta Boyer MD LAB CYTOLOGY ORDERABLES Edited Result - Final HISTORICAL TESTING LAB RESULTING AGENCY from Last 3 Months or Most Recently Relevant to Health Maintenance Care Teams Auto Polisher Relationship Specialty Start Date End Date Jefe Obregon MD [address] [place] [address] Dr Byron MA PCP - General 04/21/22
--- OUTSIDE RECORDS SUMMARY | 2025-05-04 19:29 | XMS_ITS | Patient Health Record ---
Author Organization [facility] Address [address] [place] [id number] Care Team Providers Care Account Development Manager Name Role Phone SYED YUEN M.D. 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) Lichen sclerosus et atrophicus (L90.0) Active confirmed Problem COVID-19 (343479676) COVID-19 (U07.1) Active confirmed Plan Of Treatment Pending Test Test Name Order Date SURGICAL PATHOLOGY 09/02/2022 THIN PREP,HPV,VERONIQUE IF HPV+ (>29YR)(DIAG) 03/24/2023 MM Digital Screening Mammogram 3D 2023 MM Digital Screening Mammogram 3D 2022 Next Appt Details Provider Name:RASHEEDAMindi Chapman, 06/08/2025 02:30:00 PM, [address], [place], [address], Insurance Providers Payer Name Payer Address Payer Phone Subscriber Number Group Number Insured Name Patient Relationship to Insured Coverage Start Date Coverage End Date [employer] [place] [address] [address] [place] [address] [id number] LASHONDA HOROWITZ Self - patient is the insured Medical (General) History Medical History History ICD Code Major depressive disorder, recurrent, mi ld F33.0 Hyperlipidemia, unspecified E78.5 COVID-19 U07.1 Lichen sclerosus et atrophicus L90.0 Surgical History Surgery Date(Month/Year) Appendectomy 10/1980 Tonsillectomy Bilateral tubal ligation 1997 Hospitalization History Reason Date(Month/Year) Diverticulitis [facility] 06/2021 Childbirth
--- OUTSIDE RECORDS SUMMARY | 2025-05-04 19:29 | XMS_ITS | Encounter Summary ---
Author Organization [facility] Prior to 10/29/24 Address [address] [place] [address] Care Team Providers Care Porcelain Enamel Installer Name Role Phone Jefe Obregon MD Primary Care Provider [phone] Encounter Details Date Type Department Care Team Description 08/09/2021 [place] [address] Susan Figueroa [address] [place] [address] Social History Tobacco Use Types Packs/Day Years [...] on filedocumented in this encounter Care Teams Porcelain Enamel Installer Relationship Specialty Start Date End Date Jefe Obregon MD [address] [place] [address] PCP - General Jacquard Plate Maker 04/21/22 documented as of this encounter
== END 2025-05-04 15:04 | disposition home or self-care (01) ==
LOC: HO.HUSH 14:06
PROVIDERS: PCP Internal Medicine; Visit Provider Nurse Practitioner Family
DX: N39.46 Mixed incontinence (principal); N39.41 Urge incontinence; R31.29 Other microscopic hematuria; Z13.9 Encounter for screening, unspecified
CPT/HCPCS: 99213

== ENCOUNTER → 2025-05-04 14:06 | Outpatient (BNVA) | payer OTHER, SELFPAY | PROVIDERS: PCP Internal Medicine; Visit Provider Nurse Practitioner Family | DX: N39.46 Mixed incontinence (principal); R31.29 Other microscopic hematuria; Z13.9 Encounter for screening, unspecified | CPT/HCPCS: 51798; 81003 ==